=== PATIENT | male | born 1945 | race Caucasian/White ===

== ENCOUNTER 2016-03-24 16:04 | Inpatient (IN) | payer MEDICARE, OTHER ==
[~2016-03-24] VITALS: Ht 177.8 cm; Wt 5.2 kg
[~2016-03-24 16:04] MED LIST: ASPIRIN81 MG PO; BETAPACE 80 MG80 MG PO; COUMADIN5 MG; COUMADIN5 MG PO; COUMADIN7.5 MG PO; DALIRESP500 MCG PO; FLOMAX0.4 MG PO; IPRAT-ALBUT 0.5-3 ML UPD; LEVOTHYROXINE150 MCG PO; LOPRESSOR25 MG PO; MEDROL DOSE PACK4 MG PO; NORMODYNE / TR300 MG PO; NORVASC10 MG PO; PRAVACHOL40 MG PO; PROSCAR5 MG PO; PULMICORT0.5 MG/21 INH; SINGULAIR10 MG PO; ZEGERID 20 MG C1 CAP PO; ZESTRIL20 MG PO; ZYLOPRIM300 MG PO
--- NOTE | 2016-03-24 16:17 | NUR ---
PATIENT TO ROOM FROM ADMISSIONS. PATIENT IS DIRECT ADMIT FROM DR YEE OFFICE. PATIENT IS ALERT AND ORIENTED AT THIS TIME. PATIENT HAS INSIPARTORY WHEEZES NOTED. PATIENT 02 SAT 94% ON ROOM AIR. PATIENT DENIES ANY PAIN AT THIS TIME. WILL CONT TO MADMIT PATIENT AND ONITOR PATIENT. CPOC
[2016-03-24 16:42] VITALS: BP 185/91
[2016-03-24 16:52] VITALS: BP 185/91; BMI 28.7
[2016-03-24 16:58] LABS: BASOPHILS 0.1 % (0.0-2.0); EOSINOPHILS 0 % (0-7); HEMATOCRIT 35.6 % (42.0-54.0); HEMOGLOBIN 12.4 g/dL (13.5-17.5); IMMATURE GRANULOCYTES 2.4 % (0-5); MCH 27.3 pg (26.0-34.0); MCHC 34.8 g/dL (31.0-37.0); MCV 78.2 fL (80.0-100.0); MEAN PLATELET VOLUME 7.9 fL (7.4-10.4); MONOCYTES 7.8 % (2-11); NEUTROPHILS 81.7 % (40-80); PLATELET COUNT 208 10x3/uL (130-400); RBC 4.55 10x6/uL (4.20-6.10); WBC 13.7 10x3/uL (4.8-10.8)
[2016-03-24 17:02] LABS: INR 2.75 (0.85-1.17); PROTIME 29.3 SECONDS (11.6-15.0)
[2016-03-24] MEDS ORDERED: HYDROCHLOROTHIA25 MG PO (17:09)
[2016-03-24 17:26] LABS: CALC OSMOLALITY 241 mosm/kg (275-300); CALCIUM 8.6 mg/dL (8.5-10.1); CARBON DIOXIDE 20.3 mmol/L (21.0-32.0); CKMB 3.1 U/L (0.0-3.6); CREATINE KINASE 85 UL (21-232); CREATININE - SERUM 1.3 mg/dL (0.6-1.3); GLUCOSE 89 mg/dL (74-106); POTASSIUM - SERUM 4.2 mmol/L (3.5-5.1); PRO BNP 1728 pg/mL (0-125); TROPONIN-I 0.034 ng/mL (0.000-0.060); UREA NITROGEN 22 mg/dL (7-18); eGFR NON AFRICAN AMERICAN 58 mL/min (90-120)
[2016-03-24 17:28] LABS: CHLORIDE - SERUM 83 mmol/L (98-107); SODIUM 119 mmol/L (136-145)
--- NOTE | 2016-03-24 17:30 | NUR ---
CRITCAL SODIUM AND CHLORIDE CALLED BACK FROM LAB, DR SANDY NOTIFIED AND HE CONSULTED DR CARREON. CPOC
--- NOTE | 2016-03-24 19:35 | NUR ---
RECEIVED REPORT, 022L, [id number], DENIES ANY NEEDS, CALL LIGHT IN REACH, BED IS LOW, SRX2
[2016-03-24 19:51] VITALS: BP 131/61
[2016-03-25] VITALS: BP 162/89
[2016-03-25 04:00] VITALS: BP 151/75
[2016-03-25 05:17] LABS: BASOPHILS 0.2 % (0.0-2.0); EOSINOPHILS 0.2 % (0-7); HEMATOCRIT 32.3 % (42.0-54.0); HEMOGLOBIN 11.3 g/dL (13.5-17.5); IMMATURE GRANULOCYTES 3.4 % (0-5); LYMPHOCYTES 15.9 % (15-50); MCH 27.4 pg (26.0-34.0); MCV 78.2 fL (80.0-100.0); MEAN PLATELET VOLUME 7.9 fL (7.4-10.4); MONOCYTES 9.1 % (2-11); NEUTROPHILS 71.2 % (40-80); PLATELET COUNT 212 10x3/uL (130-400); RBC 4.13 10x6/uL (4.20-6.10)
[2016-03-25 05:29] LABS: INR 2.61 (0.85-1.17); PROTIME 28.1 SECONDS (11.6-15.0)
--- NOTE | 2016-03-25 05:30 | NUR ---
CALL LIGHT IN REACH. WILL CONTINUE WITH PLAN OF CARE.
[2016-03-25 05:31] LABS: CALCIUM 8.5 mg/dL (8.5-10.1); CARBON DIOXIDE 24.6 mmol/L (21.0-32.0); CREATININE - SERUM 1.1 mg/dL (0.6-1.3); MAGNESIUM - SERUM 1.4 mg/dL (1.8-2.4); PHOSPHOROUS 3.4 mg/dL (2.5-4.9)
[2016-03-25 05:33] LABS: ANION GAP 13.9 mmol/L (8-16); POTASSIUM - SERUM 3.5 mmol/L (3.5-5.1)
[2016-03-25 07:09] VITALS: Ht 177.8 cm; Wt 5.2 kg
--- NOTE | 2016-03-25 07:35 | NUR ---
ASSESSMENT COMPLETED. DENIES ANY NEEDS. IV TO RIGHT FOREARM. O2 AT 2 L/M PER NC. URINE SENT FOR TEST. CALL LIGHT IN REACH WITH SR UP. WILL MONITOR
[2016-03-25 09:01] VITALS: BP 168/80
--- NOTE | 2016-03-25 11:01 | NUR ---
BATH GIVEN AND PATIENT SITTING UP IN CHAIR WHILE LINENS ARE BEING CHANGED. PATIENT STATES BREATHING IS BETTER TODAY.
[2016-03-25 11:17] LABS: POTASSIUM - URINE 38.8 MMOL/L (12.0-62.0)
[2016-03-25 11:33] LABS: APPEARANCE CLEAR (CLEAR); BACTERIA FEW /hpf (NONE SEEN); BILIRUBIN NEGATIVE (NEGATIVE); COLOR DK YELLOW (YELLOW); EPITHELIAL CELLS OCC /hpf (0-5); GLUCOSE NEGATIVE (NEGATIVE); KETONE NEGATIVE (NEGATIVE); LEUKOCYTE ESTERASE TRACE (NEGATIVE); NITRITE NEGATIVE (NEGATIVE); PROTEIN TRACE mg/dL (NEGATIVE); SPECIFIC GRAVITY 1.025 (1.005-1.020); UROBILINOGEN NORMAL (NORMAL)
[2016-03-25 11:34] LABS: HYALINE CAST RARE /lpf (NONE SEEN); MUCUS <1+ /lpf (NONE SEEN); SPERMATOZOA OCC /hpf (NONE SEEN); WHITE CELLS - URINE OCC /hpf (0-5)
--- NOTE | 2016-03-25 12:47 | NUR ---
UP ON SIDE OF BED FOR DIET. NO NEEDS VOICED
[2016-03-25 13:09] VITALS: BP 154/87
--- NOTE | 2016-03-25 16:17 | NUR ---
HOB UP. RESTING QUIETLY. DENIES ANY NEEDS. WILL MONITOR
[2016-03-25 16:43] VITALS: BP 188/104
[2016-03-25 21:00] VITALS: BP 159/86
[2016-03-26 00:42] VITALS: BP 167/92
--- NOTE | 2016-03-26 04:51 | NUR ---
SLEEPING, CALL LIGHT IN REACH, SRX2
--- NOTE | 2016-03-26 04:59 | NUR ---
PT RESTING WITHOUT C/O OR DISTRESS NOTED. CALL LIGHT WITHIN REACH. WILL CONT TO MONITOR.
[2016-03-26 07:17] LABS: IMMUNOGLOBULIN E 14 IU/mL (0-100)
[2016-03-26 07:18] VITALS: BP 179/95
[2016-03-26 07:26] VITALS: BP 179/95
[2016-03-26 07:27] LABS: BASOPHILS 0.3 % (0.0-2.0); EOSINOPHILS 0 % (0-7); HEMATOCRIT 31.4 % (42.0-54.0); HEMOGLOBIN 10.9 g/dL (13.5-17.5); IMMATURE GRANULOCYTES 4.7 % (0-5); LYMPHOCYTES 21.1 % (15-50); MCH 27.3 pg (26.0-34.0); MCHC 34.7 g/dL (31.0-37.0); MCV 78.7 fL (80.0-100.0); MEAN PLATELET VOLUME 7.8 fL (7.4-10.4); MONOCYTES 3.9 % (2-11); PLATELET COUNT 184 10x3/uL (130-400); RBC 3.99 10x6/uL (4.20-6.10); RDW 18.6 % (11.5-14.5)
[2016-03-26 07:33] LABS: WBC 3.6 10x3/uL (4.8-10.8)
[2016-03-26 07:53] LABS: ALBUMIN 2.6 g/dL (3.4-5.0); ALKALINE PHOSPHATASE 52 U/L (46-116); ALT (SGPT) 5 U/L (10-68); BILIRUBIN - TOTAL 0.22 mg/dL (0.2-1.3); CALC OSMOLALITY 257 mosm/kg (275-300); CALCIUM 7.7 mg/dL (8.5-10.1); CARBON DIOXIDE 22.6 mmol/L (21.0-32.0); CHLORIDE - SERUM 94 mmol/L (98-107); CREATININE - SERUM 0.3 mg/dL (0.6-1.3); GLUCOSE 154 mg/dL (74-106); MAGNESIUM - SERUM 1.3 mg/dL (1.8-2.4); PHOSPHOROUS 3.1 mg/dL (2.5-4.9); POTASSIUM - SERUM 3.6 mmol/L (3.5-5.1); PROTEIN - SERUM 5.7 g/dL (6.4-8.2); SODIUM 127 mmol/L (136-145); UREA NITROGEN 12 mg/dL (7-18); eGFR NON AFRICAN AMERICAN > 90 mL/min (90-120)
--- NOTE | 2016-03-26 08:00 | NUR ---
PT SITTING UP IN BED AWAKE AND ALERT NO DISTRESS NOTED VOICES ALL NEEDS TO STAFF. UP AD HUMZA PIV PATENT TO NORMAL SALINE PER ORDER. DOES COMPLAIN OF JITTERING AFTER UPDRAFT TREATMENT PLACED ON TELEMETRY SR NOTED
[2016-03-26 11:30] VITALS: BP 151/77
--- NOTE | 2016-03-26 12:00 | NUR ---
PT WITH NO ACUTE DISTRESS NOTED SIDE RAILS UP X 2 CALL LIGHT IN REACH WILL MONITOR.
[2016-03-26 15:21] VITALS: BP 156/80
--- NOTE | 2016-03-26 16:36 | NUR ---
RESTS IN BED WITHOUT NEEDS VOICED. CALL LIGHT IN REACH. WILL MONITOR.
--- NOTE | 2016-03-26 19:19 | NUR ---
NO DISTRESS NTOED VOICES ALL NEEDS CALL LIGHT INREACH SIDE RAILS UP X2
--- NOTE | 2016-03-26 20:25 | NUR ---
ALERT/AWAKE WATCHING TV. ADMIN SCHED MEDS. REQUESTED ANOTHER SODA. DENIES ANY PAIN OR DISCOMFORT.
[2016-03-26 20:30] VITALS: BP 191/95
[2016-03-27 00:10] VITALS: BP 170/83
--- NOTE | 2016-03-27 02:54 | NUR ---
RESTING QUIETLY WITH EYES CLOSED. RR 20 EVEN U/L. NO S/S OF DISTRESS OR DISCOMFORT. BED IS LOW WITH SR UP X2. CALL LIGHT AND BEDSIDE TABLE WITH PERSONAL ITEMS IN REACH.
[2016-03-27 04:20] VITALS: BP 175/88
--- NOTE | 2016-03-27 06:19 | NUR ---
AWAKE WATCHING TV. REQUESTED CUP OF COFFEE.
[2016-03-27 08:00] VITALS: BP 181/95
[2016-03-27 08:15] LABS: BASOPHILS 0 % (0.0-2.0); EOSINOPHILS 0 % (0-7); HEMATOCRIT 31.1 % (42.0-54.0); HEMOGLOBIN 10.6 g/dL (13.5-17.5); IMMATURE GRANULOCYTES 1.9 % (0-5); LYMPHOCYTES 7.3 % (15-50); MCH 27.2 pg (26.0-34.0); MCHC 34.1 g/dL (31.0-37.0); MCV 79.9 fL (80.0-100.0); MONOCYTES 4.7 % (2-11); NEUTROPHILS 86.1 % (40-80); PLATELET COUNT 202 10x3/uL (130-400); RBC 3.89 10x6/uL (4.20-6.10); RDW 18.8 % (11.5-14.5)
[2016-03-27 08:17] LABS: WBC 8.4 10x3/uL (4.8-10.8)
[2016-03-27 08:22] VITALS: BP 190/80
[2016-03-27 08:25] LABS: INR 1.77 (0.85-1.17); PROTIME 20.6 SECONDS (11.6-15.0)
[2016-03-27 08:32] LABS: ALBUMIN 2.6 g/dL (3.4-5.0); ALKALINE PHOSPHATASE 53 U/L (46-116); BILIRUBIN - TOTAL 0.18 mg/dL (0.2-1.3); CALCIUM 8.1 mg/dL (8.5-10.1); CARBON DIOXIDE 25.7 mmol/L (21.0-32.0); CHLORIDE - SERUM 98 mmol/L (98-107); MAGNESIUM - SERUM 1.2 mg/dL (1.8-2.4); POTASSIUM - SERUM 3.1 mmol/L (3.5-5.1); PROTEIN - SERUM 6.2 g/dL (6.4-8.2); SODIUM 135 mmol/L (136-145); UREA NITROGEN 15 mg/dL (7-18)
[2016-03-27 08:33] LABS: ALT (SGPT) 43 U/L (10-68); CALC OSMOLALITY 276 mosm/kg (275-300); GLUCOSE 207 mg/dL (74-106); PHOSPHOROUS 2.2 mg/dL (2.5-4.9); eGFR NON AFRICAN AMERICAN 78 mL/min (90-120)
[2016-03-27 12:07] VITALS: BP 163/88
[2016-03-27 16:45] VITALS: BP 185/100
--- NOTE | 2016-03-27 18:41 | NUR ---
AMBULATING IN ROLDAN. GAIT STEADY. DENIES SOB OR PAIN. EXPRESSES FEELING CAGED IN. ENCOURAGE ACTIVITY TOLERATED. SINUS RHYTHM 80bpm ON TELEMETRY. CONTINUE PLAN OF CARE AND SAFETY PRECAUTIONS.
--- NOTE | 2016-03-27 20:20 | NUR ---
PT AWAKE, ALERT, ORIENTED, SITTING UP IN BED, HOB 30 DEGREES. PT IS CONCERNED HE HAS NOT BEEN GETTING ALL OF HIS HOME MEDICATIONS SUCH A "PILL FOR HEART RHYTHM". I HAVE REVIEWED WITH PT THE MEDICATIONS HE HAS BEEN RECEIVING WHILE HERE. PT DENIES ANY NEEDS. WILL CONTINUE TO MONITOR CLOSELY. BED LOW, CALL LIGHT IN REACH, SIDE RAILS X 2.
[2016-03-28] VITALS: BP 169/87
--- NOTE | 2016-03-28 01:14 | NUR ---
PT AWAKE, ALERT, ORIENTED, MILD COUGH, REQUESTING PRN COUGH MEDICINE. GAVE PROMETHAZINE WITH CODEINE ORDERED PRN. CONTINUE TO MONITOR CLOSELY.
[2016-03-28 05:00] LABS: BASOPHILS 0.1 % (0.0-2.0); EOSINOPHILS 0 % (0-7); HEMATOCRIT 32.2 % (42.0-54.0); HEMOGLOBIN 10.8 g/dL (13.5-17.5); IMMATURE GRANULOCYTES 2.6 % (0-5); LYMPHOCYTES 9.3 % (15-50); MCH 26.9 pg (26.0-34.0); MCHC 33.5 g/dL (31.0-37.0); MCV 80.1 fL (80.0-100.0); MONOCYTES 7.1 % (2-11); NEUTROPHILS 80.9 % (40-80); PLATELET COUNT 219 10x3/uL (130-400); RBC 4.02 10x6/uL (4.20-6.10); RDW 18.4 % (11.5-14.5); WBC 8.8 10x3/uL (4.8-10.8)
[2016-03-28 05:10] LABS: CALC OSMOLALITY 273 mosm/kg (275-300); CALCIUM 8.1 mg/dL (8.5-10.1); CARBON DIOXIDE 31.6 mmol/L (21.0-32.0); CHLORIDE - SERUM 95 mmol/L (98-107); CREATININE - SERUM 0.9 mg/dL (0.6-1.3); GLUCOSE 183 mg/dL (74-106); MAGNESIUM - SERUM 1.1 mg/dL (1.8-2.4); SODIUM 134 mmol/L (136-145); UREA NITROGEN 14 mg/dL (7-18); eGFR NON AFRICAN AMERICAN 88 mL/min (90-120)
--- NOTE | 2016-03-28 06:18 | NUR ---
PT LYING IN BED, EYES CLOSED, RESPIRATIONS EVEN AND UNLABORED. PT IS EASILY ROUSABLE TO VERBAL STIMULI AND STATES THE PROMETHAZINE WITH CODEINE HELPED HIS COUGH AND ALSO HELPED HIM REST THIS SHIFT. DENIES ANY NEEDS. CONTINUE TO MONITOR CLOSELY.
--- NOTE | 2016-03-28 06:43 | HP ---
PATIENT: TAWANNA FINNEGAN MEDICAL RECORD: [id number] ACCOUNT: [id number] LOCATION:[address] : [birth year] ADMISSION DATE: 03/24/16 HISTORY AND PHYSICAL EXAMINATION DATE OF ADMISSION: 03/24/2016 CHIEF COMPLAINT: Shortness of breath for the past week and unsteadiness and productive cough for 1 week, also change in mental status. HISTORY OF PRESENT ILLNESS: The patient is a 70-year-old gentleman with a longstanding history of having COPD. The patient's had been in the hospital for the past week. Apparently, when she had returned home, she noticed that the patient was stumbling around the house ____, cough and congestion. PAST MEDICAL HISTORY: Significant that he has had severe COPD. He has had history of having transient ischemic attacks in the past. He has also had depression, peripheral vascular disease, rheumatoid arthritis in hands, hypertension, vitamin D deficiency, arthritis of the knees and gastroesophageal reflux. PAST SURGICAL HISTORY: The patient had a heart cath by Dr. Nieves in ____. He has had a carotid endarterectomy in 2008 and carpal tunnel in 2004 bilaterally. He has had back surgery in 1981, lumbar laminectomy. He has had a history of having tuberculosis in the past as well. FAMILY HISTORY: Father had heart disease. Mother had rheumatoid arthritis. Brother of lung cancer. One brother with Parkinson disease. SOCIAL HISTORY: The patient is a 1 pack per day smoker and has been so for most of his adult life. 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 He is currently disabled. He is the father of 1. ALLERGIES: HYTRIN. MEDICATIONS: Allopurinol 300 mg once a day, Breo Ellipta 1 puff day, finasteride 5 mg 1 p.o. daily, hydrochlorothiazide 12.5 mg once a day, levothyroxine 150 mcg once a day, metoprolol tartrate 50 mg once a day, Singulair 10 mg once a day, Prilosec 20 mg twice daily, pravastatin 40 mg 1 p.o. q.h.s., Flomax 0.4 mg p.o. once a day, Coumadin 7.5 mg on Monday and Monday and 5 mg the remaining days. REVIEW OF SYSTEMS: GENERAL: He denies any headaches, seizure, or syncope. Denies any change in visual or auditory acuity. PULMONARY: He does report having cough, congestion with some yellow sputum production. CARDIOVASCULAR: He has had no chest pain, palpitation, PND or orthopnea. GASTROINTESTINAL: No chronic nausea, vomiting, melena or hematochezia. GENITOURINARY: No urgency, frequency, or dysuria. PHYSICAL EXAMINATION: GENERAL: Today, the patient is ill-appearing male whose weight is 186, height is 5 feet 10 inches. VITAL SIGNS: His pulse was 96, his respirations are 28. He was tachypneic. HISTORY AND PHYSICAL [id number] TAWANNA FINNEGAN His O2 sat was 96% on room air. HEENT: Head is normocephalic. No lesions. Ears: TMs clear. Eyes: Pupils equal, round, react to light and his extraocular movements are intact. His nasal cavity, oral cavity and oropharynx are clear. NECK: Supple. There is no adenopathy. HEART: Tachycardic rate of 125. LUNGS: He has end expiratory wheezes. ABDOMEN: Soft, bowel sounds are positive. EXTREMITIES: Lower extremities, he had no edema. LABORATORY DATA: The patient had an EKG showing sinus tachycardia, rate is 125, no ST-T wave changes. The patient's chest x-ray shows flattening of the diaphragm, bilateral increased AP diameter, also old calcified granulomas in both lungs. White count was elevated at 13.7. ASSESSMENT: Chronic obstructive pulmonary disease exacerbation, possible early pneumonia, tachycardia, history of arteriosclerotic heart disease, peripheral vascular disease, hypertension, rheumatoid arthritis, gastroesophageal reflux and hypothyroidism. PLAN: The patient will be admitted. A cardiology as well as pulmonology consultation will be obtained. He will be placed on Solu-Medrol 1 mg/kg q.8 hours IV, Rocephin 1 g IV q.24 hours, Zithromax 500 mg IV q.24 hours and DuoNeb updrafts q.4 hours. Maintain his O2 sat above 92%. We will obtain sputum cultures as well and Gram stain. TRANSINT:[id number] Voice Confirmation ID: [id number] DOCUMENT ID: [id number] MARY YEE MD at 0643 CC: [id number] DICTATION DATE: 01/05/17 1752 SAMPLE WRAPPER: 03/24/162029 ADM IN [facility] [address] [facility], [facility]
[2016-03-28 08:45] VITALS: BP 194/101
--- NOTE | 2016-03-28 12:04 | NUR ---
Patient Name: TAWANNA FINNEGAN Admission Status: Urgent Accout number: [id number] Admission Date: 03-24-2016 : 1945 Admission Diagnosis: COPD Attending: PAWAN Current LOS: 4 Anticipated DC Date: 03-29-2016 Planned Disposition: Home with Primary Insurance: MEDICARE A & B Discharge Planning Comments: CM met with patient to discuss dc plan/needs. Consent given to discuss dc plans. Patient reports living at home with his . He reports he is independent in his care at home. He wears O2 at hs every night. He also has a nebulizer. He is not able to remember at this time who his O2 provider is. He denied use of assisted devices for ambulation. Patient denied dc needs at this time. He stated returning home at discharge with his is a safe discharge. Patient reports his spouse will transport him home at discharge. CM will continue to follow and assist as needed with dc plans/needs. Encouraged patient to contact cm if needs arise. Geophysical Computer: Tatiana Cervantes RN, [facility] Is the patient Alert and Oriented? Yes * How many steps to enter\exit or inside your home? 3 * PCP Dr. Fulton * Pharmacy [facility] or [facility] [address] * Preadmission Environment Home with Family * ADLs Independent * Equipment Nebulizer Oxygen * Other Equipment Cant remember O2 provider * List name and contact numbers for known caregivers / representatives who currently or will assist patient after discharge: Colleen Finnegan - spouse - [phone] * Community resources currently utilized None * Please name any agencies selected above. none * Additional services required to return to the preadmission environment? No * Can the patient safely return to the preadmission environment? Yes * Has this patient been hospitalized within the prior 30 days at any hospital? No
--- NOTE | 2016-03-28 12:56 | NUR ---
Important Medicare Message provided, explained, and signed by honey. Copy given to patient and signed message placed on patient's chart.
[2016-03-28 13:14] VITALS: BP 170/98
--- NOTE | 2016-03-28 14:09 | CN ---
PATIENT NAME:TAWANNA FINNEGAN MEDICAL RECORD: [id number] : [birth year] LOCATION:[facility] D.2113 ADMIT DATE: 03/24/16 ACCOUNT: [id number] CONSULTING PHYSICIAN: JOSE LYN MD REFERRING PHYSICIAN: MARY YEE MD DATE OF CONSULTATION: 03/25/2016 Cardiology Consultation HISTORY OF PRESENT ILLNESS: A 70-year-old gentleman with a history of obstructive pulmonary disease as well as paroxysmal atrial fibrillation. Intermittently, is on warfarin for cerebrovascular accident prophylaxis, admitted with progressive dyspnea on exertion, ____ tachycardic, has a history of dyslipidemia, has baseline dyspnea; however, has been more acute over the last ____ cardiac sinus mechanism currently. Rates have decreased well. We are asked to see him concerning his cardiovascular status. PAST MEDICAL HISTORY: Includes: 1. History of obstructive pulmonary disease. 2. Hypothyroidism. 3. Obstructive pulmonary disease described above. 4. He has a history of TB osteomyelitis. 5. Atrial fibrillation, dyslipidemia and hypertension. MEDICATIONS: Typically include HCTZ 25 mg p.o. every day, warfarin per scale, montelukast 10 mg at bedtime, Pravachol 40 every day, omeprazole 20 every day, and Proscar ____ every day. SOCIAL HISTORY: He is a previous smoker, quit in August 2015. He drinks about 12-pack of beer a day. He does have baseline shortness of breath. REVIEW OF SYSTEMS: The patient reports easy bruising but reports no swollen glands. The patient reports no fever, no night sweats, no significant weight gain, no significant weight loss. No significant exercise tolerance. The patient reports no dry eyes, no irritation, no vision change. Patient reports no difficulty hearing and no ear pain. Patient reports no frequent nose bleeds or nose and sinus problems. Patient reports on arm pain on exertion. No shortness of breath while lying down. No history of heart murmur. Patient reports no cough, no wheezing or coughing up blood. Patient reports no abdominal pain, no vomiting. Normal appetite. No diarrhea and not vomiting blood. No nausea and no constipation. Patient reports no incontinence. No difficulty urinating. No hematuria. No increased frequency. Patient reports no muscle aches. No weakness, no arthralgias, no back pain. No swelling of the extremities. Patient reports no abnormal mole, no jaundice, no rashes. Reports no loss of consciousness. No weakness and no numbness. No seizures, dizziness, or headaches. The patient reports no depression, no sleep disturbance, feeling safe in a relationship and no alcohol abuse. Patient reports on fatigue. Reports no runny nose or sinus pressure. No itching, no hives, and no frequent sneezing. PHYSICAL EXAMINATION: GENERAL: Pleasant gentleman in no acute distress. VITAL SIGNS: Pulse currently 90 and regular, blood pressure 160/80. HEENT: Normocephalic and atraumatic. NECK: No JVD or bruit. CONSULT REPORT [id number] TAWANNA FINNEGAN HEART: Regular, slightly tachycardic. No extrasystoles. LUNGS: Prolonged expiratory phase with a few wheezes. ABDOMEN: Soft and nontender. EXTREMITIES: Pulse 2+. There is no edema. NEUROLOGIC: Grossly intact. DIAGNOSTIC DATA: ECG shows right bundle left axis pressure. IMPRESSION: Sinus tachycardia. Currently, given cerebrovascular accident prophylaxis. Would not place ____ at this point. Thank you for this consultation. TRANSINT:[id number] Voice Confirmation ID: [id number] DOCUMENT ID: [id number] JOSE LYN MD at 1409 CC: [id number] DICTATION DATE: 03/25/16922 LEGEND MAKER: 03/25/16 1103 ADM IN [place] [id number]
[2016-03-28 17:04] VITALS: BP 157/96
--- NOTE | 2016-03-28 18:39 | NUR ---
ALERT AND ORIENTED X4. NO CHANGE. SITTING UP IN CHAIR. DENIES PAIN OR SOB. READY TO GO HOME. POSSIBLE DC IN A.M. PREPARE SHIFT CHANGE REPORT. CONTINUE PLAN OF CARE AND SAFETY PRECAUTIONS.
--- NOTE | 2016-03-28 21:23 | NUR ---
PT AWAKE, ALERT, ORIENTED, DENIES ANY NEEDS OTHER THAN BEING UNABLE TO SLEEP. CONTINUE TO MONITOR CLOSELY. BED LOW, CALL LIGHT IN REACH, SIDE RAILS X 2, PT UP AD HUMZA AT THIS TIME.
[2016-03-28 21:47] VITALS: BP 131/84
[2016-03-29 02:11] VITALS: BP 162/92
--- NOTE | 2016-03-29 03:53 | NUR ---
PT LYING IN BED, EYES CLOSED, RESPIRATIONS EVEN AND UNLABORED. CONTINUE TO MONITOR CLOSELY.
[2016-03-29 05:29] VITALS: BP 114/58
[2016-03-29 05:48] LABS: BASOPHILS 0.1 % (0.0-2.0); EOSINOPHILS 0 % (0-7); HEMATOCRIT 35.7 % (42.0-54.0); HEMOGLOBIN 12.1 g/dL (13.5-17.5); IMMATURE GRANULOCYTES 6.6 % (0-5); LYMPHOCYTES 23.5 % (15-50); MCH 26.9 pg (26.0-34.0); MCHC 33.9 g/dL (31.0-37.0); MCV 79.5 fL (80.0-100.0); MEAN PLATELET VOLUME 8.1 fL (7.4-10.4); MONOCYTES 7.8 % (2-11); PLATELET COUNT 199 10x3/uL (130-400); RBC 4.49 10x6/uL (4.20-6.10); RDW 18.6 % (11.5-14.5); WBC 8.9 10x3/uL (4.8-10.8)
[2016-03-29 06:01] LABS: CALCIUM 8.3 mg/dL (8.5-10.1); CHLORIDE - SERUM 95 mmol/L (98-107); MAGNESIUM - SERUM 1.3 mg/dL (1.8-2.4); PHOSPHOROUS 1.7 mg/dL (2.5-4.9); SODIUM 132 mmol/L (136-145); UREA NITROGEN 14 mg/dL (7-18); eGFR NON AFRICAN AMERICAN 78 mL/min (90-120)
[2016-03-29 06:06] LABS: CALC OSMOLALITY 265 mosm/kg (275-300); GLUCOSE 96 mg/dL (74-106); POTASSIUM - SERUM 3.7 mmol/L (3.5-5.1)
[2016-03-29 06:09] LABS: INR 2.05 (0.85-1.17); PROTIME 23.1 SECONDS (11.6-15.0)
[2016-03-29] MEDS ORDERED: LEVAQUIN750 MG PO (06:55)
[2016-03-29] MEDS ORDERED: SYNTHROID150 MCG PO (06:57)
[2016-03-29] MEDS ORDERED: LISINOPRIL10 MG PO (06:58)
[2016-03-29] MEDS ORDERED: BROVANA15 MCG/2 M INH (06:59)
[2016-03-29] MEDS ORDERED: METOPROLOL TART50 MG PO (06:59)
[2016-03-29] MEDS ORDERED: XOPENEX 0.0.63 MG/3 UPD (07:00)
[2016-03-29] MEDS ORDERED: ATROVENT 0.02%2.5 ML UPD (07:00)
[2016-03-29 07:27] VITALS: BP 175/107
--- NOTE | 2016-03-29 10:42 | NUR ---
RESTING ROOM AIR SPO2: 95% WALKING/EXERCISE ROOM AIR SPO2: 85% WALKING/EXERCISE SPO2 ON 2L NC: 97%
--- NOTE | 2016-03-29 11:02 | NUR ---
Patient Name: TAWANNA FINNEGAN Encounter No: [id number] : 1945 Primary Insurance: MEDICARE A & B Anticipated DC Date: 03-29-2016 Planned Disposition: Home DCP follow-up note: CM RECEIVED OXGYEN TESTING, PT QUALIFIES FOR PORTABLE OXYGEN. CM REVIEWED CHART, LOCATED PT'S HOME OXYGEN PROVIDER, EBNOI. CM CALLED RAY AT [facility], , NOTIFIED OF PT'S NEED FOR PORTABLE FOR DISCHARGE HOME. CM FAXED REFERRAL INFORMATION TO [facility] AT [phone]. CM SPOKE TO PT, INFORMED OF ABOVE, PT DENIES FURHTER DISCHARGE NEEDS. [facility] TO DELIVER PORTABLE OXYGEN TO HOSPITAL ROOM FOR DISCHARGE HOME TODAY. Vitor Garcia, CASE MANAGEMENT
[2016-03-29 11:36] VITALS: BP 135/76
--- NOTE | 2016-03-29 13:02 | NUR ---
ALERT AND ORIENTED X4. ANXIOUSLY WAITING TO GO HOME. DURING DISCHARGE INSTRUCTIONS, PORTABLE OXYGEN DELIVERED. DISCHARGE PAPERS SIGNED ON CHART. REMAINS FREE FROM INJURY. NO IV. ESCORT TO RIDE VIA WHEELCHAIR.
[2016-04-05 17:10] LABS: AEROBE ID Final report (())
--- NOTE | 2016-05-09 07:19 | DS ---
PATIENT:TAWANNA FINNEGAN :[birth year] MEDICAL RECORD: [id number] DISCHARGE SUMMARY ADMISSION DATE: 03/24/16 DISCHARGE DATE: 03/29/16 DATE OF ADMISSION: 03/24/2016 DATE OF DISCHARGE: 03/29/2016 CONDITION ON DISCHARGE: Improved. ADMITTING DIAGNOSES: Chronic obstructive pulmonary disease exacerbation, early pneumonia, tachycardia, history of arteriosclerotic heart disease, peripheral vascular disease, hypertension and rheumatoid arthritis. DISCHARGE DIAGNOSES: Chronic obstructive pulmonary disease exacerbation, pneumonia, diastolic dysfunction, hyponatremia, hypertension, gastroesophageal reflux, tachycardia and hypokalemia. HOSPITAL COURSE: The patient is a 70-year-old gentleman, who for the past couple of days, had had increasing shortness of breath. He had cough. He had congestion. He had also developed some confusion. PHYSICAL EXAMINATION: GENERAL: The patient was ill-appearing male. VITAL SIGNS: His weight was 186. His height 5 feet 10 inches. His pulse 96 and respirations 28. He was tachypneic. His O2 sat was 96% on room air. HEENT: Normal. NECK: Supple. There is no adenopathy. HEART: Tachycardic. LUNGS: He had decreased breath sounds in all taylor, expiratory wheezes. DIAGNOSTIC DATA: The patient had a chest x-ray showing flattening of the diaphragm, increased AP diameter, old calcified granulomas are stable. LABORATORY DATA: White count was elevated at 13,000. The patient was admitted, cardiology as well as pulmonology consultation was obtain. He was on Solu-Medrol 1 mg/kg q.8 hours, Rocephin as well as Zithromax, DuoNeb inhaler, O2 supplementation. He was seen in consultation by Dr. Alcantara, mogul operator as well as Dr. Murrell, bindery machine setter, Dr. Rodriguez, white spooler. The patient's condition slowly began to improve. Over the coming days, his white count decreased. His sodium was 119. His free water was restricted. The patient's sodium slowly began to return to normal. Pneumonia had improved. The patient was ambulating. On , the patient's condition had improved. On the , his discharge white count was 8.9, his hemoglobin was 12.1, hematocrit is 35.7 and his platelets were 199. His sodium was elevated up to 132, his potassium is 3.7, chloride of 95, CO2 is 30, BUN 14 and creatinine 1. The patient was therefore discharged. DISCHARGE MEDICATIONS: Included metoprolol 50 mg 1 p.o. b.i.d., KCl 20 mEq 1 p.o. q. day, Coumadin 5 mg 1 p.o. q. day, lisinopril 20 mg once a day, Flomax 0.4 mg once a day, prednisone on a tapering dose 40 mg for 3 days, 30 for 3 days, 20 for 3 days, and 10 for 3 days, Levaquin 750 mg 1 p.o. q. day for 7 days, Protonix 40 mg 1 p.o. q. day, Proscar 5 mg 1 p.o. q day, allopurinol 100 mg 1 p.o. q. day, pravastatin 40 mg 1 p.o. q. day, Brovana 15 mcg b.i.d., Tessalon Perles 1-2 every 8 hours p.r.n. cough, Pulmicort 0.5 b.i.d., DISCHARGE SUMMARY REPORT [id number] TAWANNA FINNEGAN guaifenesin 1000 mg p.o. b.i.d., Norvasc 10 mg 1 p.o. q. day and clonidine 0.1 mg p.o. p.r.n. for systolic pressure greater than 160. FOLLOWUP: The patient will follow up with me in approximately 1 week. ACTIVITIES: Ad rikki. TRANSINT:[id number] Voice Confirmation ID: [id number] DOCUMENT ID: [id number] MARY YEE MD at 0719 CC: [id number] DICTATION DATE: 05/08/16 1146 BORE MINER OPERATOR: 05/08/16 2256 DIS IN 03/29/16 [place] [id number]
== END 2016-03-29 14:06 | disposition home or self-care (01) | DRG 190 ==
LOC: D.M2 16:04
PROVIDERS: Family Medicine; Internal Medicine; Internal Medicine Pulmonary Disease; ADMIT Family Medicine
DX: J44.1 Chronic obstructive pulmonary disease with (acute) exacerbation (principal); J18.9 Pneumonia, unspecified organism; I50.30 Unspecified diastolic (congestive) heart failure; E87.1 Hypo-osmolality and hyponatremia; I10 Essential (primary) hypertension; K21.9 Gastro-esophageal reflux disease without esophagitis; I70.208 Unspecified atherosclerosis of native arteries of extremities, other extremity; R00.0 Tachycardia, unspecified; E87.6 Hypokalemia

== ENCOUNTER → 2016-05-30 12:38 | Outpatient (CLI) | payer MEDICARE, OTHER ==
[2016-03-25 07:09] VITALS: BMI 28.6
[~2016-05-30 12:38] MED LIST changes: +ATROVENT 0.02%2.5 ML UPD; +BAYER CHEWABLE81 MG PO; +BREO ELLIPTA 21 EACH INH; +BROVANA15 MCG/2 M INH; +CARDURA2 MG PO; +FLUTICASONE PRO16 GM NASAL; +HYDROCHLOROTHIA25 MG PO; +LEVAQUIN750 MG PO; +LISINOPRIL-HCTZ1 T13 PO; +LISINOPRIL10 MG PO; +METOPROLOL TART50 MG PO; +MUCINEX600 MG PO; +ORAPRED ODT10 MG/TAB PO; +PREDNISONE10 MG PO; +PROAIR HFA8.5 GM INH; +PROBIOTIC1 EAC1 PO; +PULMICORT0.25 MG/1 INH; +SYNTHROID150 MCG PO; +XOPENEX 0.0.63 MG/3 UPD
== END | disposition home or self-care (01) ==
LOC: D.US 12:38
DX: I65.23 Occlusion and stenosis of bilateral carotid arteries (principal)

== ENCOUNTER 2016-06-30 13:55 | Inpatient (IN) | payer MEDICARE, OTHER ==
[~2016-06-30] VITALS: Ht 177.8 cm; Wt 88.6 kg
[~2016-06-30 13:55] MED LIST changes: -BAYER CHEWABLE81 MG PO; -BREO ELLIPTA 21 EACH INH; -CARDURA2 MG PO; -FLUTICASONE PRO16 GM NASAL; -LISINOPRIL-HCTZ1 T13 PO; -MUCINEX600 MG PO; -ORAPRED ODT10 MG/TAB PO; -PREDNISONE10 MG PO; -PROAIR HFA8.5 GM INH; -PROBIOTIC1 EAC1 PO; -PULMICORT0.25 MG/1 INH
[2016-06-30 15:47] LABS: BASOPHILS 0.1 % (0.0-2.0); EOSINOPHILS 0.1 % (0-7); HEMATOCRIT 35.3 % (42.0-54.0); HEMOGLOBIN 12.1 g/dL (13.5-17.5); IMMATURE GRANULOCYTES 0.7 % (0-5); LYMPHOCYTES 7.3 % (15-50); MCH 30.9 pg (26.0-34.0); MCHC 34.3 g/dL (31.0-37.0); MCV 90.3 fL (80.0-100.0); MEAN PLATELET VOLUME 8.7 fL (7.4-10.4); MONOCYTES 7.3 % (2-11); NEUTROPHILS 84.5 % (40-80); PLATELET COUNT 255 10x3/uL (130-400); RBC 3.91 10x6/uL (4.20-6.10); RDW 13.5 % (11.5-14.5)
[2016-06-30 15:55] LABS: INR 2.44 (0.85-1.17); PROTIME 26.6 SECONDS (11.6-15.0)
[2016-06-30 16:00] LABS: ALBUMIN 3.4 g/dL (3.4-5.0); ALKALINE PHOSPHATASE 51 U/L (46-116); ALT (SGPT) 17 U/L (10-68); BILIRUBIN - TOTAL 0.55 mg/dL (0.2-1.3); CALC OSMOLALITY 267 mosm/kg (275-300); CALCIUM 8.6 mg/dL (8.5-10.1); CARBON DIOXIDE 29.1 mmol/L (21.0-32.0); CHLORIDE - SERUM 94 mmol/L (98-107); GLUCOSE 91 mg/dL (74-106); POTASSIUM - SERUM 4.1 mmol/L (3.5-5.1); PROTEIN - SERUM 6.3 g/dL (6.4-8.2); SODIUM 132 mmol/L (136-145); UREA NITROGEN 20 mg/dL (7-18); eGFR NON AFRICAN AMERICAN 78 mL/min (90-120)
[2016-06-30 16:12] LABS: PRO BNP 523 pg/mL (0-125)
[2016-06-30 16:16] LABS: TROPONIN-I < 0.017 ng/mL (0.000-0.060)
--- NOTE | 2016-06-30 19:43 | NUR ---
RECEIVED FROM ER, IV-R.HAND, PT IS ALERT & ORITENTATED, IS AT BEDSIDE, CALL LIGHT IN REACH, WILL CONTINUE TO MONITOR
[2016-06-30] MEDS ORDERED: BAYER CHEWABLE81 MG PO (19:52)
[2016-06-30] MEDS ORDERED: MUCINEX600 MG PO (19:53)
[2016-06-30] MEDS ORDERED: CARDURA2 MG PO (19:53)
[2016-06-30] MEDS ORDERED: COUMADIN5 MG PO (19:54)
[2016-06-30] MEDS ORDERED: PULMICORT0.25 MG/1 INH (19:57)
[2016-06-30 20:00] VITALS: BP 184/93
[2016-06-30 21:23] VITALS: BP 175/103; Ht 177.8 cm; Wt 88.6 kg
[2016-07-01] VITALS: BP 151/75
--- NOTE | 2016-07-01 04:16 | NUR ---
SYSTEM DEVELOPMENT MANAGER AT BEDSIDE TO OBTAIN VITALS, CALL LIGHT IN REACH. WILL CONTINUE WITH PLAN OF CARE.
[2016-07-01 04:43] LABS: BASOPHILS 0.1 % (0.0-2.0); EOSINOPHILS 0 % (0-7); HEMATOCRIT 34.5 % (42.0-54.0); HEMOGLOBIN 11.7 g/dL (13.5-17.5); LYMPHOCYTES 10.3 % (15-50); MCH 30.4 pg (26.0-34.0); MCHC 33.9 g/dL (31.0-37.0); MCV 89.6 fL (80.0-100.0); MEAN PLATELET VOLUME 8.7 fL (7.4-10.4); MONOCYTES 5.1 % (2-11); NEUTROPHILS 82.5 % (40-80); PLATELET COUNT 259 10x3/uL (130-400); RBC 3.85 10x6/uL (4.20-6.10); RDW 13.3 % (11.5-14.5)
[2016-07-01 04:46] LABS: WBC 12.2 10x3/uL (4.8-10.8)
--- NOTE | 2016-07-01 05:02 | NUR ---
PT UP IN ROLDAN WALKING TO GET COFFEE,
[2016-07-01 05:24] LABS: ALBUMIN 3.2 g/dL (3.4-5.0); ALKALINE PHOSPHATASE 48 U/L (46-116); ALT (SGPT) 16 U/L (10-68); BILIRUBIN - TOTAL 0.37 mg/dL (0.2-1.3); CALC OSMOLALITY 260 mosm/kg (275-300); CALCIUM 8.4 mg/dL (8.5-10.1); CARBON DIOXIDE 31.4 mmol/L (21.0-32.0); CHLORIDE - SERUM 91 mmol/L (98-107); CREATININE - SERUM 0.9 mg/dL (0.6-1.3); GLUCOSE 92 mg/dL (74-106); POTASSIUM - SERUM 3.7 mmol/L (3.5-5.1); PROTEIN - SERUM 6.4 g/dL (6.4-8.2); SODIUM 129 mmol/L (136-145); UREA NITROGEN 19 mg/dL (7-18); eGFR NON AFRICAN AMERICAN 88 mL/min (90-120)
--- NOTE | 2016-07-01 07:19 | NUR ---
AM ROUNDS - PT WAS WALKING THE FLOOR AND RETURNED TO HIS ROOM I WAS WALKING OUT. RIGHT HAND IV THAT IS SL. PT HAD NO NEEDS AT THIS TIME. WILL CONTINUE TO MONITOR.
[2016-07-01 08:19] VITALS: BP 171/81
[2016-07-01 12:44] VITALS: BP 134/66
--- NOTE | 2016-07-01 14:39 | NUR ---
PAGE INTO DR SANDY TO SEE IF PATIENT CAN BE DISCHARGED PER DR BOCANEGRA. AWAITING CALL BACK. [id number] SANDY TO CALL BACK AND STATES THAT HE WILL BE BY LATER. THIS IS RELAYED TO THE PATIENT.
[2016-07-01 16:00] VITALS: BP 137/68
--- NOTE | 2016-07-01 16:22 | NUR ---
DR SANDY TO SEE PATIENT.
[2016-07-01 19:00] VITALS: BP 129/60
--- NOTE | 2016-07-01 19:40 | NUR ---
SITTING ON SIDE OF BED REC UPDRAFT TX. DENIES PAIN OR ANY NEEDS. FLUSHED R HAND IV AND SL. ORIENTED TO CALL LIGHT FOR ANY NEEDS.
[2016-07-02] VITALS: BP 151/80
--- NOTE | 2016-07-02 01:15 | NUR ---
AWAKE WATCHING TV. ADMIN SCHED MED/IV. DENIES ANY NEEDS.
[2016-07-02 04:00] VITALS: BP 161/80
[2016-07-02 04:47] LABS: BASOPHILS 0.1 % (0.0-2.0); EOSINOPHILS 0 % (0-7); HEMATOCRIT 36.5 % (42.0-54.0); HEMOGLOBIN 12.4 g/dL (13.5-17.5); IMMATURE GRANULOCYTES 1.9 % (0-5); LYMPHOCYTES 4.4 % (15-50); MCH 30.2 pg (26.0-34.0); MCV 88.8 fL (80.0-100.0); MEAN PLATELET VOLUME 8.4 fL (7.4-10.4); MONOCYTES 2.7 % (2-11); NEUTROPHILS 90.9 % (40-80); PLATELET COUNT 250 10x3/uL (130-400); RBC 4.11 10x6/uL (4.20-6.10); RDW 13.3 % (11.5-14.5); WBC 12.6 10x3/uL (4.8-10.8)
[2016-07-02 05:07] LABS: ALBUMIN 3.4 g/dL (3.4-5.0); ANION GAP 12.3 mmol/L (8-16); BILIRUBIN - TOTAL 0.44 mg/dL (0.2-1.3); CALCIUM 8.5 mg/dL (8.5-10.1); CARBON DIOXIDE 28.5 mmol/L (21.0-32.0); CREATININE - SERUM 1.1 mg/dL (0.6-1.3); POTASSIUM - SERUM 3.8 mmol/L (3.5-5.1); PROTEIN - SERUM 6.6 g/dL (6.4-8.2)
--- NOTE | 2016-07-02 07:00 | NUR ---
RECEIVED REPORT. ASSUMED CARE OF PATIENT. PATIENT UP AMBULATING IN HALLWAY AND AROUND ROOM. DENIES NEEDS. STATES HE SHOULD GO HOME TODAY. NO DISTRESS.
[2016-07-02 08:12] VITALS: BP 154/83
--- NOTE | 2016-07-02 11:00 | NUR ---
AMBULATING THROUGHOUT UNIT. DENIES NEEDS. WANTING TO GO HOME. NO DISTRESS.
[2016-07-02 11:49] VITALS: BP 172/86
[2016-07-02 15:51] VITALS: BP 157/74
--- NOTE | 2016-07-02 16:03 | NUR ---
20 GAUGE IV REMOVED FROM RIGHT HAND. NO BLEEDING FROM SITE. CATHETER TIP INTACT. 2X2 GAUZE APPLIED AND SECURED WITH TAPE. PATIENT IS BEING DISCHARGED TO HOME. TOLERATED IV CATHETER REMOVAL WELL. NO DISTRESS.
[2016-07-02] MEDS ORDERED: IPRAT-ALBUT 0.5-3 ML UPD (16:59)
[2016-07-02] MEDS ORDERED: BREO ELLIPTA 21 EACH INH (17:01)
[2016-07-02] MEDS ORDERED: PROAIR HFA8.5 GM INH (17:03)
[2016-07-02] MEDS ORDERED: DALIRESP500 MCG PO (17:03)
[2016-07-02] MEDS ORDERED: FLUTICASONE PRO16 GM NASAL (17:04)
[2016-07-02] MEDS ORDERED: ORAPRED ODT10 MG/TAB PO (17:06)
[2016-07-02] MEDS ORDERED: PREDNISONE10 MG PO (17:09)
[2016-07-02] MEDS ORDERED: PROBIOTIC1 EAC1 PO (17:10)
[2016-07-02] MEDS ORDERED: LEVAQUIN750 MG PO (17:11)
[2016-07-02] MEDS ORDERED: FLOMAX0.4 MG PO (17:12)
[2016-07-02] MEDS ORDERED: METOPROLOL TART50 MG PO (17:13)
[2016-07-02] MEDS ORDERED: LISINOPRIL-HCTZ1 T13 PO (17:13)
--- NOTE | 2016-07-02 18:00 | NUR ---
DISCHARGE INSTRUCTIONS PROVIDED TO PATIENT AT THIS TIME. VERBALIZED UNDERSTANDING OF ALL INSTRUCTIONS PROVIDED.
--- NOTE | 2016-07-02 18:03 | NUR ---
Rx's FOR LEVAQUIN AND PREDNISONE TAPER CALLED TO [facility].
--- NOTE | 2016-07-02 18:16 | NUR ---
PATIENT LEFT UNIT VIA WHEELCHAIR WITH ALL PERSONAL BELONGINGS. DISCHARGED TO HOME. PATIENT IN NO DISTRESS UPON LEAVING UNIT.
--- NOTE | 2016-07-03 11:20 | DS ---
PATIENT:TAWANNA FINNEGAN :43 MEDICAL RECORD: [id number] DISCHARGE SUMMARY ADMISSION DATE: 06/30/16 DISCHARGE DATE: 07/02/16 DATE OF ADMISSION: 06/30/2016 DATE OF DISCHARGE: 07/02/2016 ADMISSION DIAGNOSIS: Chronic obstructive pulmonary disease with acute exacerbation. DISCHARGE DIAGNOSIS: Chronic obstructive pulmonary disease with acute exacerbation. CONSULTS: Dr. Josh Murrell, pulmonology. HOSPITAL COURSE: The patient had an uneventful hospital course, was admitted through the ER with progressive shortness of breath, inhalers, nebulizers continued, IV Solu-Medrol started. Chest x-rays, no significant change. No infiltrates. The patient is feeling better, anxious to go home, has been cleared for discharge by pulmonology, Dr. Murrell. Discharge meds arranged per Dr. Murrell. Will follow up with Dr. Fulton, his primary within the next 10 days. Follow up with Dr. Murrell as scheduled. Agree with assessments by consulting physicians. The patient is discharged to home in significantly improved condition. PHYSICAL EXAMINATION: VITAL SIGNS ON DISCHARGE: Temperature 97.5, heart rate 89, respirations 18, blood pressure 154/83, O2 sats 95%, alert, oriented. HEART: Regular rate and rhythm. LUNGS: Clear. ABDOMEN: Soft, nontender. EXTREMITIES: Present times 4, no edema. NEUROLOGIC: Intact. Follow up as above. TRANSINT:[id number] Voice Confirmation ID: [id number] DOCUMENT ID: [id number] TAWANNA HOLLIDAY DO at 1120 CC: [id number] DICTATION DATE: 07/02/16 1554 CAPITAL CAMPAIGN FUNDRAISER: 07/02/162010 DIS IN 07/02/16 [facility] [address] [place] [address]
== END 2016-07-02 18:18 | disposition home or self-care (01) | DRG 192 ==
LOC: D.ER 13:55 → D.M2 18:01
PROVIDERS: Emergency Medicine; ADMIT Family Medicine
DX: J44.1 Chronic obstructive pulmonary disease with (acute) exacerbation (principal); I48.91 Unspecified atrial fibrillation; R91.1 Solitary pulmonary nodule; I10 Essential (primary) hypertension; E03.9 Hypothyroidism, unspecified; K21.9 Gastro-esophageal reflux disease without esophagitis; N40.0 Benign prostatic hyperplasia without lower urinary tract symptoms; J32.9 Chronic sinusitis, unspecified; G47.34 Idiopathic sleep related nonobstructive alveolar hypoventilation; E78.5 Hyperlipidemia, unspecified; Z87.01 Personal history of pneumonia (recurrent); Z86.73 Personal history of transient ischemic attack (TIA), and cerebral infarction without residual deficits; Z87.891 Personal history of nicotine dependence

== ENCOUNTER → 2016-08-29 13:35 | Outpatient (CLI) | payer MEDICARE, OTHER ==
[2016-06-30 21:23] VITALS: BMI 27.9
[~2016-08-29 13:35] MED LIST changes: +BAYER CHEWABLE81 MG PO; +BREO ELLIPTA 21 EACH INH; +CARDURA2 MG PO; +FLUTICASONE PRO16 GM NASAL; +LISINOPRIL-HCTZ1 T13 PO; +MUCINEX600 MG PO; +ORAPRED ODT10 MG/TAB PO; +PREDNISONE10 MG PO; +PROAIR HFA8.5 GM INH; +PROBIOTIC1 EAC1 PO; +PULMICORT0.25 MG/1 INH
== END | disposition home or self-care (01) ==
LOC: D.RT 07-25 09:00 → D.RAD 07-25 10:00 → D.RT 13:35
DX: J44.9 Chronic obstructive pulmonary disease, unspecified (principal)

== ENCOUNTER → 2016-10-11 13:31 | Outpatient (CLI) | payer MEDICARE, OTHER ==
[2016-06-30 21:23] VITALS: BMI 27.9
== END | disposition home or self-care (01) ==
LOC: D.CT 13:31
DX: R10.9 Unspecified abdominal pain (principal)

== ENCOUNTER → 2016-10-26 08:26 | Outpatient (CLI) | payer MEDICARE, OTHER ==
[2016-06-30 21:23] VITALS: BMI 27.9
== END | disposition home or self-care (01) ==
LOC: D.CT 08:26
DX: R10.9 Unspecified abdominal pain (principal)

== ENCOUNTER 2016-11-09 10:59 | Outpatient (CLI) | payer MEDICARE, OTHER ==
[~2016-11-09] VITALS: Ht 177.8 cm; Wt 90.9 kg
--- NOTE | ~2016-11-09 | HEMODYNAMI ---
PATIENT:TAWANNA FINNEGAN MEDICAL RECORD: [id number] : 43 LOCATION:D.CAT ADMISSION DATE: 11/09/16 Generatedon:11/09/201615:17 Patient name: TAWANNA FINNEGAN Patient #: [id number] SSN: : 1945 Date of study: 11/09/2016 Page: Of Hemodynamic Procedure Report Patient Data Patient Demographics Procedure consent was obtained First Name: TAWANNA Gender: Male Last Name: SIVAN : 1945 [facility] Initial: E Age: 71 year(s) Patient #: [id number] Race: Additional ID: [id number] Contact details Address: [address] [place] [address] [place] State: [place] City: [facility] Zip code: [address] Past Medical History Allergies Allergen Reaction Date Comments Reported Other allergy 12/03/2015 terazosin Admission Admission Data Admission Date: 11/09/2016 Admission Time: 10:59 Height (in.): 60 BSA: 1.92 (m2) Height (cm.): 152.4 BMI: 41.6 (kg/m2) Weight (lbs.): 213 Weight (kg.): 96.62 Procedure Procedure Types Cath Procedure Diagnostic Procedure [facility] w/Coronaries Miscellaneous Procedures Moderate Sedation up to 15 minutes Procedure Description Procedure Date Procedure Date: 11/09/2016 Procedure Start Time: 14:54 Procedure End Time: 15:14 Procedure Staff Name Function Frank Rodriguez MD Performing Physician Ruth Antunez RT Scrub Sony Garibay RN Nurse Bertha Sanders RT Monitor Procedure Data Cath Procedure Fluoroscopy Diagnostic fluoroscopy Total fluoroscopy Time: 5.4 time: 5.4 min min Diagnostic fluoroscopy Total fluoroscopy dose: 945 dose: 945 mGy mGy Contrast Material Contrast Material Type Amount (ml) Isovue 300 132 Entry Location Entry Primary Successful Side Size Upsize Upsize Entry Closure Succes sful Closure Location (Fr) 1 (Fr) 2 (Fr) Remarks Device Remarks Femoral Right 6 Fr 6 Fr Exoseal artery Long Short Estimated blood loss: 10 ml Diagnostic catheters Device Type Used For End Catheter Placement Cordis 5Fr JL 4.0 Procedure Catheter (MP) Cordis 5Fr 3DRC Catheter Procedure (MP) Diagnostic Infinity 5Fr Procedure AR MOD Catheter Diagnostic Infinity 5Fr Procedure JR 4 catheter Cordis 5Fr Pigtail Ventriculography Catheter (MP) Procedure Complications No complications Procedure Medications Medication Administration Route Dosage Oxygen NC 2 l/min Lidocaine 2% added to field 20 Heparin Flush Bag added to field 2 bags (1000units/500ml NS) 0.9% NaCl I.V. 100 ml/hr Versed I.V. 2 mg Fentanyl I.V. 100 mcg Versed I.V. 1 mg Fentanyl I.V. 50 mcg Hemodynamics Rest BSA: 1.92 (m2) O2 Consumption: Estimated: 246.88 (ml/min) O2 Consumption indexed : Estimated:128.58 (ml/min/m) Heart Rate: 105 (bpm) Pressure Samples Time Site Value (mmHg) Purpose Heart Use Rate(bpm) 15:09 LV 111/12,13 Snapshot 84 15:09 LV 111/-51,14 Snapshot 87 15:09 AO 94/62(74) Pullback 106 15:09 LV 85/17,31 Pullback 106 Gradients Valve Time Site 1 Site 2 Mean SEP/DFP Peak To Heart Use (mmHg) (sec/min) Peak Rate (mmHg) (bpm) Aortic 15:09 LV AO 0 3 0 106 85/17,31 94/62(74) Calculations Valve P-P Mean Valve Index Valve Source Name Gradient Area Flow (cm2) Aortic 0 0 0 0 Snapshots Pre Cath Intra NCS Post Cath Vital Signs Time Heart Resp SPO2 NIBP (mmHg) Rhythm Pain Sedation Rate (ipm) (%) Status Level (bpm) 14:44:54 106 24 99 163/108(131) NSR 0 (11) 10(A) , No pain 14:49:08 103 21 93 148/88(117) NSR 0 (11) 10(A) , No pain 14:53:24 111 18 96 134/83(99) NSR 0 (11) 10(A) , No pain 14:57:38 103 16 96 136/78(93) NSR 0 (11) 10(A) , No pain 15:01:45 106 16 98 136/74(106) NSR 0 (11) 9(A) , No pain 15:06:47 105 17 98 126/81(94) NSR 0 (11) 9(A) , No pain 15:10:56 104 17 98 137/79(106) NSR 0 (11) 9(A) , No pain 15:16:00 101 17 95 133/75(97) NSR 0 (11) 10(A) , No pain Medications Time Medication Route Dose Verified Delivered Reason Notes Effe ctiveness by by 14:43:57 Oxygen NC 2 Frank Buffie used for l/min St. Bob Garibay RN procedure 14:44:05 Lidocaine 2% added 20ml Frank Frank for local to vial [facility] anesthetic field MD WARNER 14:45:47 Heparin Flush added 2 Frank Frank used for Bag to bags [facility] procedure (1000units/500ml field MD WARNER NS) 14:45:57 0.9% NaCl I.V. 100 Frank Cardoza Per ml/hr St. Bob Garibay RN physician 14:55:17 Versed I.V. 2 mg Frank Cardoza for [facility]. Bob Garibay RN sedation 14:55:23 Fentanyl I.V. 100 Frank Beltránie for mcg [facility] Bob Garibay RN sedation 15:02:51 Versed I.V. 1 mg Frank Cardoza for [facility]. Bob Garibay RN sedation 15:02:56 Fentanyl I.V. 50 Frank Cardoza for mcg [facility] Bob Garibay RN sedation Procedure Log Time Note 14:30:37 Patient Height : 152.4 cm 14:30:46 Patient Weight : 96.62 kg 14:31:20 Diagnostic Cath status Elective 14:31:24 Sony Garibay RN sent for patient. Start room use. 14:31:26 Time tracking: Regular hours 14:31:31 Plan of Care:Hemodynamics will remain stable., Cardiac rhythm will remain stable., Comfort level will be maintained., Respiratory function will remain adequate., Patient/ family verbilizes understanding of procedure., Procedure tolerated without complication., Recovers from procedure without complications.. 14:40:19 Patient received from Pre/Post Procedure Room to [facility] 2 Alert and oriented. Tansferred to table in Supine position. 14:40:21 Warm blankets applied, and caroline hugger turned on for patient comfort. 14:40:22 Correct patient and procedure confirmed by team. 14:40:24 Signed procedure consent form obtained from patient. 14:40:26 ECG and BP/O2 sat monitors applied to patient. 14:40:46 H&P Date Dictated: 11/01/2016 Within 30 days and on chart., H&P Addendum completed by physician on day of procedure. (MUST COMPLETE FOR ALL OUTPATIENTS). 14:40:47 Pre-procedure instructions explained to patient. 14:40:49 Family in waiting room. 14:40:52 Patient NPO since Midnight. 14:41:22 Is the patient allergic to Iodine/contrast media? No. 14:42:01 Is patient on blood thinner?Yes 14:42:06 ACC The patient was administered the following blood thiners within the last 24 hours: Coumadin 14:42:44 Patient diabetic? No. 14:42:46 Snore? Yes 14:42:48 Sleep apnea? No 14:42:57 Airway obstruction? Yes COPD 14:43:00 Dentures? No ? 14:43:11 IV patent on arrival in left antecubital with 0.9% NaCl at [facility]. 14:43:18 Lab results completed and on chart. 14:43:23 Right groin area was prepped with chlora-prep and draped in sterile fashion 14:43:35 Alarms reviewed by R. N. 14:43:36 Sharps counted by scrub and verified by R.N. 14:43:36 Physician paged 14:43:37 Physician arrived 14:43:42 Vital chart was started 14:43:57 Oxygen 2 l/min NC was administered by Sony Garibay RN; used for procedure; 14:44:05 Lidocaine 2% 20ml vial added to field was administered by Frank Rodriguez MD; for local anesthetic; 14:45:47 Heparin Flush Bag (1000units/500ml NS) 2 bags added to field was administered by Frank Rodriguez MD; used for procedure; 14:45:57 0.9% NaCl 100 ml/hr I.V. was administered by Sony Garibay RN; Per physician; 14:52:03 --------ALL STOP TIME OUT------ 14:52:04 Final Timeout: patient, procedure, and site verified with staff and physician. All members of the team are in agreement. 14:52:06 Right groin site verified by team. 14:52:10 Sedation plan: IV Moderate Sedation Versed, Fentanyl 14:52:22 Full Disclosure recording started 14:52:28 Baseline sample Acquired. 14:52:36 Use device set Femoral Dx 14:54:17 Procedure started. 14:54:31 Local anesthetic to right femoral artery with Lidocaine 2% by Frank Rodriguez MD.INITIAL ACCESS ONLY 14:55:17 Versed 2 mg I.V. was administered by Sony Garibya RN; for sedation; 14:55:23 Fentanyl 100 mcg I.V. was administered by Sony Garibay RN; for sedation; 14:55:44 A 6 Fr Long sheath was inserted into the Right Femoral artery 14:55:50 Zero performed for pressure channel P1 14:56:06 Acist Syringe opened to sterile field. 14:56:07 Bag Decanter opened to sterile field. 14:56:07 Medline Cath Pack opened to sterile field. 14:56:14 St Clayton 260cm J .035 wire opened to sterile field. 14:56:16 Acist Hand Control opened to sterile field. 14:56:17 Acist Manifold opened to sterile field. 14:56:17 Diagnostic Infinity 5Fr Multipack catheter opened to sterile field. 14:56:20 Tegaderm 4 x 4 opened to sterile field. 14:56:22 Terumo 6Fr [place] Destination Sheath opened to sterile field. 14:56:35 Terumo 6Fr [place] Sheath opened to sterile field. 14:56:53 A Cordis 5Fr JL 4.0 Catheter (MP) was advanced over the wire and used for Procedure. 14:58:17 LCA angiography performed. 14:58:56 Catheter removed. 14:59:04 A Cordis 5Fr 3DRC Catheter (MP) was advanced over the wire and used for Procedure. 14:59:20 RCA angiography performed. 15:00:27 Catheter removed. 15:01:12 A Diagnostic Infinity 5Fr AR MOD Catheter was advanced over the wire and used for Procedure. 15:02:51 Versed 1 mg I.V. was administered by Sony Garibay RN; for sedation; 15:02:56 Fentanyl 50 mcg I.V. was administered by Sony Garibay RN; for sedation; 15:04:06 Catheter removed. 15:04:38 A Diagnostic Infinity 5Fr JR 4 catheter was advanced over the wire and used for Procedure. 15:06:42 Catheter removed. 15:06:48 Medtronic Launcher 6Fr HS II guide catheter opened to sterile field. 15:07:58 Catheter removed. 15:08:10 A Cordis 5Fr Pigtail Catheter (MP) was advanced over the wire and used for Ventriculography. 15:09:35 EF : 55 % 15:09:40 LV hemodynamics recorded. 15:09:41 Catheter removed. 15:09:56 Sheath upsized to a 6 Fr Short. 15:10:02 Sheath removed intact; hemostasis achieved with Exoseal to the Right Femoral artery. 15:11:17 Procedure ended.(Physican Out) 15:11:34 Fluoroscopy time 05.40 minutes. 15:11:39 Fluoroscopy dose: 945 mGy 15:11:39 Flurop Dose total: 945 15:11:46 Contrast amount:Isovue 300 132ml. 15:11:51 Sharps counted by scrub and verified by R.N. 15:11:55 Insertion/operative site no bleeding no hematoma. 15:12:02 Post-op/insertion site Right Femoral artery dressed using a 4 x 4 and Tegaderm. 15:12:41 Post right femoral artery:stable 15:12:43 Post Procedure Pulses reassessed and unchanged 15:12:49 Post-procedure physical assessment completed. ASA score P 2 - A patient with mild systemic disease as per Frank Rodriguez MD. 15:13:08 Post procedure rhythm: unchanged. 15:13:11 Estimated blood loss: 10 ml 15:13:17 Post procedure instruction explained to patient.Patient verbalizes understanding. 15:13:24 Procedure and supply charges have been captured, reviewed, submitted and are correct. 15:13:47 Procedure Complication : No complications 15:13:50 Vital chart was stopped 15:13:51 See physician's report for complete and final results. 15:13:53 Report given to Pre/Post Procedure Room. 15:13:56 Patient transfered to Pre/Post Procedure Room with Stretcher. 15:14:00 Procedure ended. 15:14:00 Full Disclosure recording stopped 15:14:04 End room use (Document Last) Device Usage Item Name Manufacture Quantity Catalog Hospital Part Current Minimal L ot# / Number Charge Number Stock Stock Serial# Code Acist Acist 1 83274 579294 220496 727211 20 Syringe Medical Systems Inc Bag Microtek 1 2002S 913052 26928 961816 5 Decanter Medical Inc. Medline Cardinal 1 [id number] 167752 94818 927534 [address] [facility] [place] 1 208900 410857 212298 439369 30 260cm J .035 wire Acist Hand Acist 1 54024 812666 141317 171663 5 Control Medical Systems Inc Acist Acist 1 22452 539111 864701 387302 5 Manifold Medical Systems Inc Diagnostic Cardinal 1 DT9209 436647 42827 570859 30 Infinity Health 5Fr Multipack catheter Tegaderm 4 3M 1 1626W 153598 602217 809077 5 x 4 Terumo 6Fr Terumo 1 RSR01 070074 24386 629004 5 [place] Destination Sheath Terumo 6Fr Terumo 1 DWQ677 985840 444057 143330 40 [place] Sheath Cordis 5Fr Cardinal 1 863603 5 JL 4.0 Health Catheter (MP) Cordis 5Fr Cardinal 1 049908 5 3DRC Health Catheter (MP) Diagnostic Cardinal 1 [id number] 494652 256651 091615 15 Infinity Health 5Fr AR MOD Catheter Diagnostic Cardinal 1 [id number] 671692 592615 949562 5 InfinReInnervate Health 5Fr JR 4 catheter Medtronic Medtronic 1 [id number] 288795 81449 279262 1 Launcher 6Fr HS II guide catheter Cordis 5Fr Cardinal 1 629461 5 Pigtail Health Catheter (MP) Signature Audit [place] Stage Time Signature Unsigned Intra-Procedure 11/09/2016 Bertha Sanders 3:17:00 PM RT(R) Signatures Monitor : Bertha Sanders Signature : RT Date : Time : [facility] [address] [place] [address]
[2016-11-09] MEDS ORDERED: ZANTAC150 MG PO (11:28)
[2016-11-09] MEDS ORDERED: EDARBYCLOR 40-1 EACH PO (11:29)
[2016-11-09] MEDS ORDERED: CARDURA2 MG PO (11:30)
[2016-11-09] MEDS ORDERED: HYDROCHLOROTH12.5 M1 PO (11:31)
[2016-11-09] MEDS ORDERED: ZOLOFT50 MG PO (11:32)
[2016-11-09] MEDS ORDERED: SINGULAIR10 MG PO (11:33)
[2016-11-09] MEDS ORDERED: BAYER CHEWABLE81 MG PO (11:34)
[2016-11-09] MEDS ORDERED: THERMOTABS 1 GM1 GM PO (11:35)
[2016-11-09] MEDS ORDERED: XOPENEX 0.0.63 MG/3 UPD (11:37)
[2016-11-09 11:43] VITALS: BP 139/71; Ht 177.8 cm; Wt 90.9 kg
[2016-11-09 11:47] LABS: BASOPHILS 0.3 % (0-2); EOSINOPHILS 2.5 % (0-7); HEMATOCRIT 34.6 % (42.0-54.0); HEMOGLOBIN 11.7 g/dL (13.5-17.5); IMMATURE GRANULOCYTES 1.4 % (0-5); LYMPHOCYTES 23.5 % (15-50); MCH 27.7 pg (26.0-34.0); MCHC 33.8 g/dL (31.0-37.0); MCV 81.8 fL (80.0-100.0); MEAN PLATELET VOLUME 7.9 fL (7.4-10.4); MONOCYTES 10.3 % (2-11); PLATELET COUNT 271 10x3/uL (130-400); RBC 4.23 10x6/uL (4.20-6.10); RDW 15.2 % (11.5-14.5); WBC 9.6 10x3/uL (4.8-10.8)
[2016-11-09 12:09] LABS: INR 1.24 (0.85-1.17); PROTIME 15.5 SECONDS (11.6-15.0)
[2016-11-09 12:12] LABS: CALC OSMOLALITY 250 mosm/kg (275-300); CALCIUM 8.7 mg/dL (8.5-10.1); CARBON DIOXIDE 28.1 mmol/L (21.0-32.0); CHLORIDE - SERUM 89 mmol/L (98-107); POTASSIUM - SERUM 3.7 mmol/L (3.5-5.1); SODIUM 125 mmol/L (136-145); UREA NITROGEN 12 mg/dL (7-18); eGFR NON AFRICAN AMERICAN 78 mL/min (90-120)
[2016-11-09 12:16] LABS: GLUCOSE 88 mg/dL (74-106)
--- NOTE | 2016-11-09 15:45 | NUR ---
2L NC, NO RESP DISTRESS NOTED. RIGHT GROIN 6F EXOSEAL CDI, NO BLEEDING OR HEMATOMA NOTED. NO C/O NAUSEA OR CHEST PAIN. VSS. INSTRUCTED PT TO KEEP HEAD FLAT ON PILLOW AND RIGHT LEG STRAIGHT.
--- NOTE | 2016-11-09 16:15 | NUR ---
SANDWICH TRAY AND DRINK GIVEN. NO C/O NAUSEA. 2L NC, NO RESP DISTRESS. RIGHT GROIN 6F EXOSEAL CDI, NO BLEEDING OR HEMATOMA NOTED. VSS. WILL CONTINUE TO MONITOR.
--- NOTE | 2016-11-09 17:00 | NUR ---
HOB ELEVATED 30 DEGREES, RIGHT GROIN 6F EXOSEAL CDI, NO BLEEDING OR HEMATOMA NOTED.
--- NOTE | 2016-11-09 17:21 | NUR ---
LEFT HAND PIV D/C'D WITH CATHETER INTACT, BAND AID TO SITE. UP TO BEDSIDE TO GET DRESSED.
--- NOTE | 2016-11-09 17:26 | NUR ---
UP TO RESTROOM TO VOID.
--- NOTE | 2016-11-09 17:30 | NUR ---
DISCHARGE INSTRUCTIONS GIVEN, VERBALIZED UNDERSTANDING.
--- NOTE | 2016-11-09 17:40 | NUR ---
TAKEN OUT VIA WHEELCHAIR BY CATH BALLOON SANDER. LEFT FACILITY WITH FAMILY MEMBER AND ALL PERSONAL BELONGINGS.
--- NOTE | 2016-11-10 08:14 | OP ---
PATIENT NAME: TAWANNA FINNEGAN MEDICAL RECORD: [id number] :43 LOCATION:D.CAT ADMISSION DATE: SURGEON: JOSE LYN MD DATE OF OPERATION: 11/09/2016 PROCEDURES: Left heart catheterization, selective coronary angiography, right femoral approach. CATHETERS: We used a long sheath secondary to previous problems with access and tortuosity. The procedure was well tolerated and the patient returned to ghosh. Sheath was removed. ExoSeal device placed. FINDINGS: Left ventriculography in 30-degree KIM view: Normal wall motion and normal systolic function. CORONARY ANATOMY. LEFT MAIN: Left main is free of disease. LAD: Free of disease in the diagonal system. CIRCUMFLEX: Free of disease in the marginal system. RIGHT CORONARY ARTERY: Dominant artery, gives rise to PDA, free of disease. IMPRESSION: Patent stent. Normal LV function, noncardiac cause of dyspnea. TRANSINT:[id number] Voice Confirmation ID: [id number] DOCUMENT ID: [id number] JOSE LYN MD at 0814 CC: [id number] DICTATION DATE: 11/09/16 151 MANAGER FURNITURE: 11/09/162052 DEP CLI 11/09/16 [facility] [address] [place] [place] [address]
== END 2016-11-09 17:40 | disposition home or self-care (01) ==
LOC: D.CATH 10:59
PROVIDERS: Internal Medicine Interventional Cardiology
DX: R06.00 Dyspnea, unspecified (principal); Z01.812 Encounter for preprocedural laboratory examination

== ENCOUNTER 2016-12-22 10:41 | Inpatient (IN) | payer MEDICARE, OTHER ==
[~2016-12-22 10:41] MED LIST changes: +EDARBYCLOR 40-1 EACH PO; +HYDROCHLOROTH12.5 M1 PO; +THERMOTABS 1 GM1 GM PO; +ZANTAC150 MG PO; +ZOLOFT50 MG PO
--- NOTE | 2016-12-22 11:29 | NUR ---
RESP STATUS UPON INITAL ASSESSMENT, PATIENT HAVE LABORED BREATHING ON 3L (HOME REGIMEN). LUNGS DIMINISHED ON THE L SIDE. A/A UPDRAFT ORDERED. AWAITING TO HEAR FROM ANESTHESIA ON FURTHER ORDERS. WILL CONTINUE TO MONITOR.
[2016-12-22 11:42] LABS: BASOPHILS 0.3 % (0-2); EOSINOPHILS 0.9 % (0-7); HEMATOCRIT 31.5 % (42.0-54.0); HEMOGLOBIN 10.2 g/dL (13.5-17.5); IMMATURE GRANULOCYTES 0.3 % (0-5); LYMPHOCYTES 20.8 % (15-50); MCH 26.9 pg (26.0-34.0); MCHC 32.4 g/dL (31.0-37.0); MCV 83.1 fL (80.0-100.0); MEAN PLATELET VOLUME 7.8 fL (7.4-10.4); MONOCYTES 10.1 % (2-11); NEUTROPHILS 67.6 % (40-80); RBC 3.79 10x6/uL (4.20-6.10); RDW 15.6 % (11.5-14.5); WBC 6.5 10x3/uL (4.8-10.8)
[2016-12-22 11:45] LABS: PLATELET COUNT 168 10x3/uL (130-400)
[2016-12-22 12:32] LABS: CALC OSMOLALITY 263 mosm/kg (275-300); CALCIUM 8.8 mg/dL (8.5-10.1); CARBON DIOXIDE 36.1 mmol/L (21.0-32.0); CHLORIDE - SERUM 92 mmol/L (98-107); GLUCOSE 86 mg/dL (74-106); POTASSIUM - SERUM 3.4 mmol/L (3.5-5.1); SODIUM 132 mmol/L (136-145); UREA NITROGEN 13 mg/dL (7-18); eGFR NON AFRICAN AMERICAN 78 mL/min (90-120)
[2016-12-22 13:51] LABS: ALKALINE PHOSPHATASE 60 U/L (46-116); ALT (SGPT) 22 U/L (10-68); BILIRUBIN - TOTAL 0.69 mg/dL (0.2-1.3); PROTEIN - SERUM 6.3 g/dL (6.4-8.2)
[2016-12-22 13:52] LABS: CKMB 0.9 U/L (0.0-3.6); CREATINE KINASE 32 UL (21-232); PRO BNP 2272 pg/mL (0-125); TROPONIN-I < 0.017 ng/mL (0.000-0.060)
--- NOTE | 2016-12-22 14:15 | NUR ---
EGD PROCEDURE CANCELLED. CARDIOLOGY CONSULTED. PT TO BE ADMITTED, WITH PULMONARY CONSULT WELL. PT TO BE ADMITTED TO 2112 FOR CARDIAC MONITORING AND PULMONARY EVALUATION. 1345- REPORT CALLED TO GERMAN TROY RN. 1405- PT TO 2112 VIA WHEELCHAIR. 3L O2 NC, IN PLACE. IVF @ KVO TO RIGHT ARM. ORDERS COMPLETED: EKG, UPDRAFT, ECHO 1415- DR. REDDY NOTIFIED OF CONSULT.
[2016-12-22 14:23] VITALS: BP 122/70; BMI 30.2
[2016-12-22] MEDS ORDERED: HYDROCHLOROTHIA25 MG PO (14:44)
[2016-12-22] MEDS ORDERED: METOPROLOL TART50 MG PO (14:48)
[2016-12-22] MEDS ORDERED: ATROVENT HFA12.9 GM INH (14:50)
[2016-12-22] MEDS ORDERED: COUMADIN7.5 MG PO (14:50)
--- NOTE | 2016-12-22 14:54 | NUR ---
PT ARRIVED TO UNIT FROM OP. PT A&O SITTING UP IN BED WITH AT BEDSIDE. PTS LUNGS HAVE WHEEZING THROUGHOUT LOBES. PULSE OX @98% WITH NC @3L IN PLACE HOWEVER PT FEELS SOB AND HAS LABORED BREATHING. PT WILL BE STRICT I&O AND VERBALIZED UNDERSTANDING, URINAL PROVIDED FOR ACCURACY. DAILY WEIGHT WELL AND PERFORMED ON STAND UP SCALE WITH SHOES, GOWN AND PJ PANTS IN PLACE CURRENT 210.6 WILL MONITER FOR WT. GAIN. BILAT FEET HAVE PITTING EDEMA, ELEVATED TO HELP REDUCE SWELLING. ADMISSION WORKUP COMPLETED. TELEMETRY WILL BE APPLIED. NO FURTHER NEEDS AT THIS TIME. WILL CPOC.
[2016-12-22 19:00] VITALS: BP 127/79
[2016-12-22 20:11] LABS: CKMB 1.2 U/L (0.0-3.6); CREATINE KINASE 40 UL (21-232); TROPONIN-I < 0.017 ng/mL (0.000-0.060)
[2016-12-23 02:22] LABS: CKMB 1.3 U/L (0.0-3.6); CREATINE KINASE 45 UL (21-232)
[2016-12-23 02:25] LABS: TROPONIN-I < 0.017 ng/mL (0.000-0.060)
--- NOTE | 2016-12-23 03:41 | NUR ---
CALL LIGHT IN REACH, WILL CONTINUE WITH PLAN OF CARE.
--- NOTE | 2016-12-23 04:50 | NUR ---
PATIENT IS ALERT WATCHING TV AT THIS TIME, DENIES PAIN OR NEEDS. CALL LIGHT IN REACH.
[2016-12-23 05:39] LABS: BASOPHILS 0 % (0-2); EOSINOPHILS 0 % (0-7); HEMATOCRIT 32.7 % (42.0-54.0); HEMOGLOBIN 10.6 g/dL (13.5-17.5); IMMATURE GRANULOCYTES 0.2 % (0-5); MCH 26.6 pg (26.0-34.0); MCHC 32.4 g/dL (31.0-37.0); MEAN PLATELET VOLUME 8.6 fL (7.4-10.4); MONOCYTES 4.5 % (2-11); NEUTROPHILS 73.3 % (40-80); RBC 3.99 10x6/uL (4.20-6.10); RDW 15.5 % (11.5-14.5)
[2016-12-23 06:11] LABS: INR 1.07 (0.85-1.17); PROTIME 13.8 SECONDS (11.6-15.0)
[2016-12-23 06:21] LABS: PLATELET COUNT 234 10x3/uL (130-400); WBC 4.5 10x3/uL (4.8-10.8)
[2016-12-23 06:24] LABS: CALC OSMOLALITY 258 mosm/kg (275-300); CALCIUM 8.4 mg/dL (8.5-10.1); CARBON DIOXIDE 36.3 mmol/L (21.0-32.0); GLUCOSE 111 mg/dL (74-106); MAGNESIUM - SERUM 1.4 mg/dL (1.8-2.4); POTASSIUM - SERUM 3.7 mmol/L (3.5-5.1); PRO BNP 3045 pg/mL (0-125); SODIUM 128 mmol/L (136-145); T4 THYROXIN - FREE 1.18 ng/dL (0.76-1.46); THYROID STIMULATING HORMONE 1.09 uIU/mL (0.36-3.74); UREA NITROGEN 14 mg/dL (7-18); eGFR NON AFRICAN AMERICAN 78 mL/min (90-120)
[2016-12-23 06:32] LABS: CHLORIDE - SERUM 85 mmol/L (98-107)
[2016-12-23 08:00] VITALS: BP 128/76
--- NOTE | 2016-12-23 08:37 | NUR ---
UP IN BED EATING LUNCH AT THIS TIME AND WATCHING TV. NO ACUTE DISTRESS NOTED. WILL CONTINUE PLAN FO CARE.
--- NOTE | 2016-12-23 10:35 | NUR ---
UP IN BED WATCHING TV AT THIS TIME. NO ACUTE DISTRESS NOTED. WILL CONTINUE PLAN OF CARE.
[2016-12-23 12:00] VITALS: BP 112/62
--- NOTE | 2016-12-23 12:35 | NUR ---
UP IN BED EATING LUNCH AT THIS TIME AND VISITING WITH . NO ACUTE DISTRESS NOTED. WILL CONTNIUE PLAN OF CARE.
--- NOTE | 2016-12-23 15:26 | NUR ---
UP IN BED VISITING WITH FAMILY AT THIS TIME. NO ACUTE DISTRESS NOTED. WILL CONTINUE PLAN OF CARE.
[2016-12-23 15:39] VITALS: BP 116/67
--- NOTE | 2016-12-23 18:44 | NUR ---
UP IN BED AT THIS TIME WATCHING TV. DENIES ANY NEEDS. NO ACUTE DISTRESS NOTED. WILL CONTINUE PLAN OF CARE.
[2016-12-23 19:00] VITALS: BP 145/76
[2016-12-24] VITALS (7 sets, daily range): BP systolic 106–144; BP diastolic 56–110
--- NOTE | 2016-12-24 01:12 | NUR ---
PATIENT IS ALERT WATCHING TV, DENIES NEEDS OR PAIN AT THIS TIME. CALL LIGHT IN REACH.
--- NOTE | 2016-12-24 03:43 | NUR ---
AWAKE WATCHING TV. DENIES ANY NEEDS OR DISCOMFORT. HAS CALL LIGHT IN REACH.
[2016-12-24 05:50] LABS: BASOPHILS 0 % (0-2); EOSINOPHILS 0 % (0-7); HEMATOCRIT 30.6 % (42.0-54.0); HEMOGLOBIN 9.9 g/dL (13.5-17.5); IMMATURE GRANULOCYTES 0.3 % (0-5); LYMPHOCYTES 10.1 % (15-50); MCH 26.5 pg (26.0-34.0); MCHC 32.4 g/dL (31.0-37.0); MCV 81.8 fL (80.0-100.0); MEAN PLATELET VOLUME 8.1 fL (7.4-10.4); NEUTROPHILS 82.6 % (40-80); RBC 3.74 10x6/uL (4.20-6.10); RDW 15.4 % (11.5-14.5)
[2016-12-24 05:52] LABS: PLATELET COUNT 181 10x3/uL (130-400); WBC 9.3 10x3/uL (4.8-10.8)
[2016-12-24 06:08] LABS: CALCIUM 8.1 mg/dL (8.5-10.1); CREATININE - SERUM 1.1 mg/dL (0.6-1.3); MAGNESIUM - SERUM 1.3 mg/dL (1.8-2.4)
--- NOTE | 2016-12-24 08:00 | NUR ---
UP IN BED EATING BREAKFAST AT THIS TIME. DENIES ANY NEEDS. NO ACUTE DISTRESS NOTED. WILL CONTINUE PLAN OF CARE.
--- NOTE | 2016-12-24 11:01 | NUR ---
UP IN BED VISITING WITH AT THIS TIME. DENIES ANY NEEDS. WILL CONTINUE PLAN OF CARE.
--- NOTE | 2016-12-24 14:01 | NUR ---
NO CHANGE; PT ABLE TO STATE NEEDS. TOILETS SELF INDEPENDENTLY. WILL CONTINUE PLAN OF CARE.
--- NOTE | 2016-12-24 17:02 | NUR ---
UP IN BED WATCHING TV AT THIS TIME. DENIES ANY NEEDS. NO ACUTE DISTRESS NOTED. WILL CONTINUE PLAN OF CARE.
--- NOTE | 2016-12-24 22:33 | NUR ---
K+ 3.3, FOLLOW [id number]
--- NOTE | 2016-12-24 23:59 | NUR ---
PT RESTING WELL WITHOUT C/O OR DISTRESS NOTED. FEW NEEDS VOICED. CALL LIGHT WITHIN REACH.
--- NOTE | 2016-12-25 04:05 | NUR ---
ASSESSMENT COMPLETE, SEE FLOWSHEET, PT WATCHING TV, DENIES ANY NEEDS, BED IS LOW, SRX2, CALL LIGHT IN REACH, WILL CONTINUE PLAN OF CARE
[2016-12-25 05:40] LABS: BASOPHILS 0 % (0-2); EOSINOPHILS 0 % (0-7); HEMATOCRIT 34.1 % (42.0-54.0); HEMOGLOBIN 10.7 g/dL (13.5-17.5); IMMATURE GRANULOCYTES 0.2 % (0-5); LYMPHOCYTES 6.9 % (15-50); MCH 26.4 pg (26.0-34.0); MCHC 31.4 g/dL (31.0-37.0); MEAN PLATELET VOLUME 8.6 fL (7.4-10.4); MONOCYTES 4.5 % (2-11); NEUTROPHILS 88.4 % (40-80); RBC 4.05 10x6/uL (4.20-6.10); RDW 15.6 % (11.5-14.5); WBC 9.9 10x3/uL (4.8-10.8)
[2016-12-25 05:45] LABS: MCV 84.2 fL (80.0-100.0); PLATELET COUNT 241 10x3/uL (130-400)
[2016-12-25 06:06] LABS: ANION GAP 12.5 mmol/L (8-16); CALCIUM 8.1 mg/dL (8.5-10.1); CARBON DIOXIDE 36.3 mmol/L (21.0-32.0); CREATININE - SERUM 1.2 mg/dL (0.6-1.3); MAGNESIUM - SERUM 1.4 mg/dL (1.8-2.4)
[2016-12-25 06:07] LABS: POTASSIUM - SERUM 3.8 mmol/L (3.5-5.1)
[2016-12-25 06:33] VITALS: BP 145/84
--- NOTE | 2016-12-25 06:33 | NUR ---
PT CAME BACK FROM XRAY , GIVING SOUL-MEDROL, IV STARTED LEEKING, PT WANT TO WAIT ON IV UNTIL AFTER BREATHING TREATMENT
[2016-12-25 09:09] VITALS: BP 147/86
[2016-12-25 10:35] LABS: INR 1.02 (0.85-1.17); PROTIME 13.2 SECONDS (11.6-15.0)
[2016-12-25] MEDS ORDERED: AUGMENTIN 875-11 TAB PO (12:03)
[2016-12-25] MEDS ORDERED: PREDNISONE20 MG PO (12:05)
[2016-12-25] MEDS ORDERED: FUROSEMIDE40 MG PO (12:35)
[2016-12-25] MEDS ORDERED: DOXYCYCLINE HY100 M2 PO (12:35)
[2016-12-25 12:42] VITALS: BP 117/64
--- NOTE | 2016-12-25 14:10 | NUR ---
ALERT AND ORIENTED X4. SITTING UP ON SIDE OF BED. AT BEDSIDE. DISCHARGE INSTRUCTIONS GIVEN VERBALLY AND WRITTEN. DISCHARGE PAPERS SIGNED ON CHART. NO IV. PRESCRIPTIONS CALL TO PHARMACY. ESCORT TO RIDE VIA WHEELCHAIR. REMAINS FREE FROM INJURY.
--- NOTE | 2016-12-26 07:22 | HP ---
PATIENT: TAWANNA FINNEGAN MEDICAL RECORD: [id number] ACCOUNT: [id number] LOCATION:[address] : 43 ADMISSION DATE: 12/22/16 HISTORY AND PHYSICAL EXAMINATION DATE OF ADMISSION: 12/22/2016 CHIEF COMPLAINT: Shortness of breath. HISTORY OF PRESENT ILLNESS: The patient is a 71-year-old gentleman with long-standing history of having COPD. Apparently, the patient was to have an EGD earlier today, when he was noted to have increasing shortness of breath. He was seen in outpatient by local director water and waste services, who felt the patient should be admitted. He had also had atrial fibrillation. PAST MEDICAL HISTORY: His past history is significant in that he has had, as stated above, long-standing history of having COPD. He has had peripheral vascular disease. He has had TIAs and hypertension. He has had tobacco dependence syndrome, hyperlipidemia, gout, vitamin D deficiency, gastroesophageal reflux, rheumatoid arthritis, and hypothyroidism. PAST SURGICAL HISTORY: He had carotid endarterectomy in 2008 with patch angioplasty. He has had carpal tunnel bilaterally, left elbow surgery, and cervical spine with lumbar laminectomy in 1981. FAMILY HISTORY: Father had heart disease. Mother had rheumatoid arthritis. One brother with malignant tumor of the lung. Also one brother with Parkinson disease. MEDICATIONS: His medications have been allopurinol 300 mg once a day, Carafate 1 gram q.a.c. and at bedtime, doxazosin 2 mg p.o. daily, finasteride 5 mg once a day, Lasix 40 mg one p.o. daily, hydrochlorothiazide 25 mg once a day, KCl 20 mEq one p.o. daily, levothyroxine 150 mcg once a day, one aspirin a day, metoprolol tartrate 50 mg p.o. b.i.d., Singulair 10 mg once a day, Mucinex 1200 mg p.o. b.i.d., omeprazole 20 mg once a day, pravastatin 40 mg once a day, sertraline 50 mg once a day, Tudorza 40 mcg one puff q. 12 hours. ALLERGIES: He has known drug allergies. REVIEW OF SYSTEMS: CONSTITUTIONAL: He denies any headache, seizure, or syncope. Denies change in visual or auditory acuity. PULMONARY: He denies any sputum production. CARDIOVASCULAR: He has had no chest pain, palpitation, PND, or orthopnea. GI: No chronic nausea, vomiting, melena, or hematochezia. URINARY: No urgency, frequency, or dysuria. PHYSICAL EXAMINATION: VITAL SIGNS: He was afebrile. His blood pressure was 122/70, his O2 sat was 97%, and his pulse was 89. HEENT: His head is normocephalic. No lesions. Ears; TMs are clear. Eyes; pupils are equal, round, and reactive to light. His extraocular movements are intact. Nasal cavity, oral cavity, and oropharynx are clear. NECK: Supple. There is no adenopathy. HEART: Slightly irregular. HISTORY AND PHYSICAL [id number] TAWANNA FINNEGAN LUNGS: He had decreased breath sounds in all taylor. He had some end expiratory wheezes. LABORATORY DATA AND DIAGNOSTIC DATA: The patient did have an EKG showing atrial fib, controlled rate of 74. The patient had white count 6.5, hemoglobin 10.2, hematocrit 31.5, and platelets were 168. Potassium 3.4, sodium 132, chloride is 92, BUN is 13, and creatinine is 1.0. ProBNP is elevated at 2272. Chest x-ray shows no acute chest process or significant change from comparison. He has remote granulomatous disease present. ASSESSMENT: History of chronic atrial fib with COPD exacerbation, hypoxia, rheumatoid arthritis, hyperlipidemia, hypothyroidism, hypertension, and depression. PLAN: The patient will be admitted. Cardiology as well as pulmonary consultation will be obtained. He will be placed on IV antibiotics as well as IV steroids. Updraft therapies will be performed. He will be placed on telemetry. Also, he will be given diuresis. He will have an echocardiogram. TRANSINT:[id number] Voice Confirmation ID: [id number] DOCUMENT ID: [id number] MARY YEE MD at 0722 CC: [id number] DICTATION DATE: 12/22/161731 CREDIT RISK REVIEW OFFICER: 12/22/162037 DIS IN 12/25/16 [facility] [address] [place] [address]
--- NOTE | 2016-12-29 12:49 | EC ---
PATIENT:TAWANNA FINNEGAN DATE OF SERVICE: 12/22/16 SEX: M MEDICAL RECORD: [id number] DATE OF : 43 LOCATION:D. D.211 AGE OF PATIENT: 71 ADMISSION DATE: 12/22/16 REFERRING PHYSICIAN: INTERPRETING PHYSICIAN: CHI NDIAYE MD ECHOCARDIOGRAM REPORT ECHO CHARGES 4 ECHO COMPLETE CLINICAL DIAGNOSIS: CHF ECHOCARDIOGRAPHIC MEASUREMENTS (adult normal given) AC root (d.<3.7cm) 2.1 cm LV Septum d (<1.2 cm> 1.2 cm Valve Excursion 0.9 cm LV Septum (systole) 1.4 cm Left Atria (s.<4.0cm> 3.7 cm LVPW d(<1.2cm) 1.1 cm RV (d.<2.3cm) 3.5 cm LVPW (sytole) 1.8 cm LV diastole(<5.6CM) 4.5 cm MV E-F(>70mm/sec) cm LV systole 3.0 cm LVOT Diameter 1.7 cm MV exc.(>10mm) 1.1 cm Est.ejection fraction (50-75%) % Pericardial Effusion N DOPPLER: LVIT cm/sec A 150 cm/sec E cm/sec LA cm/sec RVSP 37 mmHg LVOT 92 cm/sec AOP1/2T m/s Asc. Ao 160 cm/sec RVOT 80 cm/sec RA cm/sec PA 113 cm/sec AV Gradient Peak 10.20mmHg AV Mean 4.64 mmHg AV Area 1.2 cm MV Gradient Peak 14.05mmHg MV Mean 4.49 mmHg MV Area cm COMMENTS: Travel Guide: 2 SANDRA STEINBERG Toll Bridge Operator: 4 Dr. Ndiaye TAPE# PACS DATE OF SERVICE: 12/22/2016 PROCEDURE: Transthoracic echocardiogram. FINDINGS: 1. The left ventricle is showing evidence of mild hypertensive heart disease with LVH that is concentric in nature. The patient has no regional wall motion abnormalities. The ejection fraction is 65%. 2. The mitral valve appears to be normal by structure. There is no evidence of significant mitral regurgitation. ECHOCARDIOGRAM REPORT [id number] TAWANNA FINNEGAN 3. The left atrium is normal size, normal function. 4. The right atrium is normal size, normal function. 5. The right ventricle is mildly dilated. The right ventricular systolic pressure is estimated at 35-40 mmHg. 6. The tricuspid valve is normal structurally with mild tricuspid regurgitation. 7. The pulmonary valve is not well visualized, but grossly normal. 8. The pericardium shows no evidence of pericardial effusion. 9. The IVC is not well demonstrated; however, it appears to be mildly dilated. Also, of note is mild right ventricular hypertrophy. CONCLUSIONS: The patient has evidence of mild hypertensive heart disease as well as mild pulmonary hypertension which may be reflected upon combination of left and right heart failure, diastolic in nature. TRANSINT:[id number] Voice Confirmation ID: [id number] DOCUMENT ID: [id number] 12/27/2016 Edited to correct date of service, dmm. CHI NDIAYE MD at 1249 CC: [id number] DICTATION DATE: 12/23/16 0744 LOOM CLEANER: 12/23/16 0817 DIS IN 12/25/16 [facility] [id number] [place] [address]
--- NOTE | 2017-01-02 11:43 | CN ---
PATIENT NAME:TAWANNA ARIZA MEDICAL RECORD: [id number] : 43 LOCATION:[facility] D.2113 ADMIT DATE: 12/22/16 ACCOUNT: [id number] CONSULTING PHYSICIAN: SHELTON REDDY MD REFERRING PHYSICIAN: MARY YEE MD DATE OF CONSULTATION: 12/22/2016 PULMONARY CONSULTATION CONSULT REQUESTING PHYSICIAN: Piotr Delgado MD REASON FOR CONSULTATION: Acute exacerbation of chronic obstructive pulmonary disease, dyspnea on exertion. HISTORY OF PRESENT ILLNESS: Mr. Ariza is a 71-year-old gentleman who has a history of severe COPD, home oxygen dependent. The patient has worsening shortness of breath for the last 4 to 5 weeks. He has dyspnea with mild exertion. He has cough without much sputum production. Also he has gained some weight. He has a 2-pillow orthopnea. Denies any chest pain. There is no fever or any chills, no night sweats. The patient came for EGD today. They are going to do the procedure because of the patient's worsened shortness of breath. REVIEW OF SYSTEMS: Mainly in the history of present illness. PAST MEDICAL HISTORY: 1. COPD of severe degree. 2. Chronic hypoxic respiratory failure. 3. Gastroesophageal reflux disease. 4. History of TIA. 5. History of pulmonary nodule since 2012. 6. Backache. PAST SURGICAL HISTORY: He has a back surgery, elbow and neck surgery. ALLERGIES: HE IS ALLERGIC TO TERAZOSIN. PRESENT MEDICATIONS: On Crediteratech was reviewed. PERSONAL AND SOCIAL HISTORY: The patient is an ex-smoker. He is a nondrinker. He is and lives with his . FAMILY HISTORY: Significant for cardiovascular disease and diabetes. PHYSICAL EXAMINATION: GENERAL: Now, the patient is lying comfortably. He is not in acute distress. VITAL SIGNS: The blood pressure is 122/70, pulse is 89, respiration is 18, temperature is 97.5, SpO2 is 98% on 3 liters nasal cannula. HEENT: Conjunctivae pink, sclerae not icteric. NECK: Supple, no JVD. CHEST: The chest excursion is minimal on both sides. There is prolonged expiration with wheezing. There are also crackles. HEART: Rhythm regular, normal sound, no murmur. ABDOMEN: Soft. Bowel sounds present. No hepatosplenomegaly. RECTAL: Deferred. EXTREMITIES: No cyanosis, no clubbing, no pedal edema. CONSULT REPORT [id number] TAWANNA ARIZA SKIN: Warm, normal turgor. CENTRAL NERVOUS SYSTEM: The patient is awake and alert. There are no obvious cranial nerve abnormality. The gait was not tested. IMAGING: Chest radiograph; there are increased interstitial markings. LABORATORY DATA: CBC; the WBC is 6.5, hemoglobin is 10.2, hematocrit 31.5, the platelet count is 168. Chemistry; sodium 132, potassium 3.4, BUN is 13, creatinine is 1, glucose 86. IMPRESSION: 1. Acute exacerbation of chronic obstructive pulmonary disease. 2. Tracheobronchitis. 3. Pulmonary edema. 4. Atrial fibrillation. 5. Chronic diastolic congestive heart failure. 6. Chronic hypoxic respiratory failure. 7. Gastroesophageal reflux disease. 8. History of pulmonary nodule. RECOMMENDATION: Start him on Xopenex and ipratropium nebulizer, Brovana and budesonide nebulizer, methylprednisolone IV, doxycycline IV. Check the CT scan of the chest in a.m. Supplemental oxygen as required. Mucinex DM. Follow up labs and chest radiograph in the morning. Dr. Delgado, thank you for involving me in the care of Mr. Ariza. TRANSINT:[id number] Voice Confirmation ID: [id number] DOCUMENT ID: [id number] SHELTON REDDY MD at 1143 CC: [id number] DICTATION DATE: 12/22/16 152 RANGER AIDE: 12/22/162030 DIS IN 12/25/16 [id number] [place] [address]
== END 2016-12-25 15:10 | disposition home or self-care (01) | DRG 292 ==
LOC: D.OPS 10:41 → D.M2 10:41 → D.OPS 14:18 → D.M2 14:18
PROVIDERS: Anesthesiology; Family Medicine; Internal Medicine Cardiovascular Disease; Internal Medicine Pulmonary Disease; ADMIT Family Medicine
DX: I11.0 Hypertensive heart disease with heart failure (principal); J44.1 Chronic obstructive pulmonary disease with (acute) exacerbation; E87.1 Hypo-osmolality and hyponatremia; J98.11 Atelectasis; J96.11 Chronic respiratory failure with hypoxia; I50.33 Acute on chronic diastolic (congestive) heart failure; I48.2 Chronic atrial fibrillation; M06.9 Rheumatoid arthritis, unspecified; E78.5 Hyperlipidemia, unspecified; E03.9 Hypothyroidism, unspecified; F32.9 Major depressive disorder, single episode, unspecified; K21.9 Gastro-esophageal reflux disease without esophagitis; Z87.891 Personal history of nicotine dependence; Z86.73 Personal history of transient ischemic attack (TIA), and cerebral infarction without residual deficits

== ENCOUNTER 2017-01-26 09:42 | Inpatient (IN) | payer MEDICARE, OTHER ==
[~2017-01-26] VITALS: Ht 177.8 cm; Wt 93.4 kg
[~2017-01-26 09:42] MED LIST changes: +ATROVENT HFA12.9 GM INH; +AUGMENTIN 875-11 TAB PO; +DOXYCYCLINE HY100 M2 PO; +FUROSEMIDE40 MG PO; +PREDNISONE20 MG PO
[2017-01-26 10:29] LABS: BASOPHILS 0.1 % (0-2); EOSINOPHILS 0.1 % (0-7); HEMATOCRIT 36.1 % (42.0-54.0); HEMOGLOBIN 11.9 g/dL (13.5-17.5); IMMATURE GRANULOCYTES 0.4 % (0-5); LYMPHOCYTES 7.7 % (15-50); MCH 26.7 pg (26.0-34.0); MCV 81.1 fL (80.0-100.0); MEAN PLATELET VOLUME 8.1 fL (7.4-10.4); MONOCYTES 5.7 % (2-11); PLATELET COUNT 201 10x3/uL (130-400); RBC 4.45 10x6/uL (4.20-6.10); RDW 16.5 % (11.5-14.5); WBC 15.6 10x3/uL (4.8-10.8)
[2017-01-26 10:44] LABS: ALBUMIN 3.2 g/dL (3.4-5.0); ANION GAP 6.9 mmol/L (8-16); BILIRUBIN - TOTAL 0.77 mg/dL (0.2-1.3); CARBON DIOXIDE 36.6 mmol/L (21.0-32.0); CREATININE - SERUM 1.1 mg/dL (0.6-1.3); POTASSIUM - SERUM 3.5 mmol/L (3.5-5.1); PROTEIN - SERUM 6.4 g/dL (6.4-8.2)
[2017-01-26 12:00] VITALS: BP 97/63
[2017-01-26] MEDS ORDERED: ANORO ELLIPTA1 EACH INH (13:08)
[2017-01-26] MEDS ORDERED: VENTOLIN HFA18 GM INH (13:09)
[2017-01-26 13:12] VITALS: BP 97/63; Ht 177.8 cm; Wt 93.4 kg
--- NOTE | 2017-01-26 13:32 | NUR ---
ADMISSION WORKUP COMPLETED. INTRODUCED MYSELF TO PT PRIMARY RN FOR TODAYS SHIFT. PT A&O SITTING UP IN BED WITH AT BEDSIDE. PT VERY FAMILAR WITH OUR FACILITY AND HAS HAD MANY LIKE ADMISSIONS. PT CURRENTLY NOT SOB BUT WAS ADMITTED WITH THAT. PT HAS A PRODUCTIVE GARGLY COUGH BUT STATES HE IS BARELY ABLE TO COUGH IT UP. RR NONLABORED WITH NC @3L IN PLACE LUNGS CTA WITH EXP. WHEEZES NOTED THROUGHOUT ALL LOBES. PT NEEDING TELEMETRY AND WE WILL APPLY IT, PT HAS NOTED A.FIB AND ON MEDICATIONS FOR IT. CL IN REACH, BED IN LOWEST, SIDE RAILS X2. WILL CPOC.
[2017-01-26 16:00] VITALS: BP 93/47
[2017-01-26 21:24] VITALS: BP 108/59
--- NOTE | 2017-01-26 23:44 | NUR ---
PATIENT IS RESTING COMFORTABLY. DENIES ANY PAIN. C/O SHORTNESS OF BREATH.PATIENT STATES THAT HE HAS NEVER HAD INSULIN AND DOES NOT WANT TO START NOW.
--- NOTE | 2017-01-26 23:48 | NUR ---
TELEMETRY SHOWS AFIB AT 80.
--- NOTE | 2017-01-27 00:16 | NUR ---
PATIENT IS SLEEPING COMFORTABLY. ROOM AIR, IV IN LEFT ARM IS PATENT CLEAN DRY AND INTACT. BED LOW, CALL LIGHT IN REACH.
[2017-01-27 01:40] VITALS: BP 106/65
--- NOTE | 2017-01-27 02:21 | NUR ---
RESTING COMFORTABLY. 4 LITERS VIA NASAL CANNULA. IV CLEAN DRY AND INTACT. NS AT 5ML/HR. TELEMETRY SHOWS A FIB 84.
[2017-01-27 04:00] VITALS: BP 91/51
--- NOTE | 2017-01-27 05:07 | NUR ---
PT RESTING IN BED WATCHING TV. PT IS ON 3L O2 NC. PT DENIES ANY NEEDS. NO S/S OF DISTRESS. BED LOW AND CALL LIGHT IN REACH. WILL CPOC
[2017-01-27 05:34] LABS: INR 1.85 (0.85-1.17); PROTIME 21.3 SECONDS (11.6-15.0)
[2017-01-27 05:41] LABS: BASOPHILS 0 % (0-2); EOSINOPHILS 0 % (0-7); HEMATOCRIT 33.8 % (42.0-54.0); HEMOGLOBIN 11.1 g/dL (13.5-17.5); IMMATURE GRANULOCYTES 0.4 % (0-5); LYMPHOCYTES 5.1 % (15-50); MCH 26.7 pg (26.0-34.0); MCHC 32.8 g/dL (31.0-37.0); MCV 81.3 fL (80.0-100.0); MEAN PLATELET VOLUME 8.6 fL (7.4-10.4); NEUTROPHILS 92.5 % (40-80); PLATELET COUNT 257 10x3/uL (130-400); RBC 4.16 10x6/uL (4.20-6.10); RDW 16.4 % (11.5-14.5); WBC 19.9 10x3/uL (4.8-10.8)
[2017-01-27 06:00] LABS: CALCIUM 8.4 mg/dL (8.5-10.1); CREATININE - SERUM 1.2 mg/dL (0.6-1.3)
[2017-01-27 08:00] VITALS: BP 92/46
[2017-01-27 08:53] LABS: CKMB 0.9 U/L (0.0-3.6); TROPONIN-I < 0.017 ng/mL (0.000-0.060)
--- NOTE | 2017-01-27 10:20 | NUR ---
TELEMETRY CAF. RESP UL ON 02 3L NC. IV PATENT. CALL LIGHT IN REACH. WILL CONT. PLAN OF CARE.
[2017-01-27 12:00] VITALS: BP 99/68
[2017-01-27 16:00] VITALS: BP 138/72
[2017-01-27 21:05] VITALS: BP 125/71
[2017-01-28 01:17] VITALS: BP 105/49
[2017-01-28 04:36] LABS: BASOPHILS 0 % (0-2); EOSINOPHILS 0 % (0-7); HEMATOCRIT 31.1 % (42.0-54.0); HEMOGLOBIN 10.2 g/dL (13.5-17.5); IMMATURE GRANULOCYTES 0.5 % (0-5); LYMPHOCYTES 4.4 % (15-50); MCH 26.8 pg (26.0-34.0); MCHC 32.8 g/dL (31.0-37.0); MCV 81.6 fL (80.0-100.0); MEAN PLATELET VOLUME 8.7 fL (7.4-10.4); MONOCYTES 3.8 % (2-11); NEUTROPHILS 91.3 % (40-80); PLATELET COUNT 231 10x3/uL (130-400); RBC 3.81 10x6/uL (4.20-6.10); RDW 16.8 % (11.5-14.5)
[2017-01-28 04:38] LABS: WBC 14.9 10x3/uL (4.8-10.8)
[2017-01-28 05:01] LABS: ANION GAP 8.3 mmol/L (8-16); CALCIUM 8.2 mg/dL (8.5-10.1); CARBON DIOXIDE 32.4 mmol/L (21.0-32.0); CREATININE - SERUM 1.1 mg/dL (0.6-1.3); MAGNESIUM - SERUM 1.8 mg/dL (1.8-2.4)
[2017-01-28 05:04] LABS: POTASSIUM - SERUM 3.7 mmol/L (3.5-5.1)
[2017-01-28 05:28] VITALS: BP 118/65
--- NOTE | 2017-01-28 07:30 | NUR ---
PT AWAKE IN BED WATCHING TV. DENIES DISTRESS AT THIS TIME. STATES THE LAST BREATHING TREATMENT FINALLY HELPED AND HE FELLS LIKE HE CAN BREATH BETTER NOW. IV TO LEFT AC SALINE LOCKED. TELEMENTRY INTACT RUNNING CAF. O2 AT 3 LITERS PER NC. PT IN ON OTHER UNIT AND PT IS WORRIED ABOUT HER AND WANTS TO SEE IF CAN BE MOVED CLOSER TO EACH OTHER, OR BRING HER OVER HERE, TOLD HIM WILL HAVE TO TALK TO HOUSE SUPERVISIOR. SR UP X 2, C/L IN REACH WILL MONITOR.
--- NOTE | 2017-01-28 07:45 | NUR ---
ROUNDING NOTE: PT IS A,A,OX3. PT IS ON 3L OXYGEN VIA NC. PT HAS NS RUNNING AT 75CC/HR TO LEFT AC. ON TELE, PT IS IN CONTROLLED AFIB WITH HR 87. PT'S POTASSIUM HAS BEEN LOW, WILL NEED TO GIVE MORE POTASSIUM PER ELECTROLYTE PROTOCOL. PT REPORTS FEELING VERY SOB, LUNG SOUNDS SHOW DIFFUSE WHEEZING AND POOR AIR MOVEMENT. RESP THERAPY CALLED TO GIVE UPDRAFT TREATMENT. O2 SAT 96%. WILL CONT TO MONITOR.
--- NOTE | 2017-01-28 07:47 | NUR ---
PT'S POTASSIUM IS IMPROVED THIS MORNING TO 3.7. PT'S IVF HAVE BEEN SALINE LOC'D DUE TO BNP OF 2785 AND INCREASED RESP DISTRESS THROUGHOUT THE NIGHT REQUIRING EARLY UPDRAFT TRETAMENTS SEVERAL TIMES WITH ONLY MINIMAL IMPROVEMENT. WILL CONT TO MONITOR.
[2017-01-28 08:02] VITALS: BP 120/70
--- NOTE | 2017-01-28 08:49 | NUR ---
UP SOB EATING BRK. RESP UL ON . CALL LIGHT IN REACH. WILL CONT. PLAN OF CARE.
[2017-01-28 12:33] VITALS: BP 119/89
[2017-01-28 16:26] VITALS: BP 127/66
--- NOTE | 2017-01-28 19:21 | NUR ---
INITIAL ROUNDS COMPLETED. PT DENIES ANY DISCOMFORT. AT BEDSIDE. WILL CONTINUE TO MONITOR.
--- NOTE | 2017-01-28 20:15 | NUR ---
ADMISSION ASSESSMENT COMPLETED. IV TO LAC SL. PT DECLINES IV FLUIDS. O2 3LNC. LUNGS DIMINISHED IN BASES BILAT. SOB WITH EXERTION. TRACE PEDAL EDEMA. PM FSBS 176. WILL CONTINUE TO MONITOR. SR UP X2, CALL LIGHT WITHIN REACH.
[2017-01-28 20:16] VITALS: BP 126/54
--- NOTE | 2017-01-28 21:16 | NUR ---
PM FSBS 176. 2 UNITS HUMALOG GIVEN SUB-Q TO UPPER R ARM. PM MEDS GIVEN. WILL CONTINUE TO MONITOR.
--- NOTE | 2017-01-28 23:46 | NUR ---
PT HAD 30 BEAT RUN OF PAT. BACK TO CAF. DENIES ANY DISCOMFORT. WILL CONTINUE TO MONITOR.
[2017-01-29] VITALS (7 sets, daily range): BP systolic 110–148; BP diastolic 50–79
--- NOTE | 2017-01-29 02:12 | NUR ---
PT AWAKE; DENIES ANY DISCOMFORT. WILL CONTINUE TO MONITOR.
[2017-01-29 04:54] LABS: BASOPHILS 0 % (0-2); EOSINOPHILS 0 % (0-7); HEMATOCRIT 30.6 % (42.0-54.0); IMMATURE GRANULOCYTES 0.6 % (0-5); LYMPHOCYTES 4.4 % (15-50); MCH 26.7 pg (26.0-34.0); MCHC 32.7 g/dL (31.0-37.0); MCV 81.6 fL (80.0-100.0); MEAN PLATELET VOLUME 8.2 fL (7.4-10.4); PLATELET COUNT 208 10x3/uL (130-400); RBC 3.75 10x6/uL (4.20-6.10); RDW 16.5 % (11.5-14.5); WBC 12.7 10x3/uL (4.8-10.8)
--- NOTE | 2017-01-29 05:01 | NUR ---
PT RESTING WITH EYES CLOSED. RESP EVEN AND REGULAR. SR UP X2, CALL LIGHT WITHIN REACH.
[2017-01-29 05:07] LABS: INR 2.26 (0.85-1.17)
[2017-01-29 05:14] LABS: ALBUMIN 2.8 g/dL (3.4-5.0); ALKALINE PHOSPHATASE 46 U/L (46-116); ALT (SGPT) 31 U/L (10-68); BILIRUBIN - TOTAL 0.41 mg/dL (0.2-1.3); CALC OSMOLALITY 267 mosm/kg (275-300); CALCIUM 8.5 mg/dL (8.5-10.1); CARBON DIOXIDE 35.7 mmol/L (21.0-32.0); CHLORIDE - SERUM 89 mmol/L (98-107); GLUCOSE 161 mg/dL (74-106); MAGNESIUM - SERUM 1.8 mg/dL (1.8-2.4); PHOSPHOROUS 2.7 mg/dL (2.5-4.9); PROTEIN - SERUM 6.1 g/dL (6.4-8.2); SODIUM 130 mmol/L (136-145); UREA NITROGEN 25 mg/dL (7-18); eGFR NON AFRICAN AMERICAN 78 mL/min (90-120)
[2017-01-29 05:15] LABS: POTASSIUM - SERUM 2.8 mmol/L (3.5-5.1)
--- NOTE | 2017-01-29 05:48 | NUR ---
K+ 2.8. KCL 20MEQ PO GIVEN PER ELECTOLYTE PROTOCOL. EXPLAINED TO PT WILL HAVE 2 MORE DOSES 2 HRS APART THEN RECHECK K+ 4 HRS AFTER LAST DOSE. PT STATED UNDERSTANDING.
--- NOTE | 2017-01-29 06:15 | NUR ---
VSS THROUGHOUT NIGHT. CAF PER CM. PT DENIED ANY DISCOMFORT. NEEDS MET; WILL CONTINUE TO MONITOR.
--- NOTE | 2017-01-29 07:32 | NUR ---
AM ROUNDS- PT SITTING UP TO SIDE OF BED, BEAM BUILDER AT BEDSIDE TO DO VITAL SIGNS. PT A/O X4, RESP EVEN AND UNLABORED ON 3L. LT AC SL, CAF 98 ON MONITOR. PT DENIES ANY NEEDS AT THIS TIME. INFORMED PT ABOUT SPUTUM CULTURE NEEDED PT HAS COUHG BUT IS NOT PRODUCING ANY SPUTUM AT THIS TIME. CALL LIGHT IN REACH, NAD NOTED, WILL CONTINUE PLAN OF CARE.
--- NOTE | 2017-01-29 08:26 | NUR ---
AM MEDS GIVEN AND 20MEQ OF K FOR LOW K OF 2.8. PT UP TO SIDE OF BED, EATING BREAKFAST, DENIES ANY NEEDS AT THIS TIME, CALL LIGHT IN REACH, NAD NOTED, WILL CONTINUE PLAN OF CARE.
--- NOTE | 2017-01-29 11:09 | NUR ---
BLOOD SUGAR OF 232, 4 UNTIS OF HUMALOG GIVEN PER S/S. IVPB OF LEVAQUIN HUNG AT THIS TIME. PT DENIES ANY NEEDS AT THIS TIME. CALL [facility] IN REACH, NAD NOTED.
--- NOTE | 2017-01-29 14:54 | NUR ---
VERBAL ORDER FROM DR. SANDY TO CANCEL RESP CULTURE.
--- NOTE | 2017-01-29 22:21 | NUR ---
INITIAL ROUNDS COMPLETEDA T 1915 HRS. PT DENIED ANY DISCOMFORT. ASSESSMENT COMPLETED AT 1940 HRS. VSS. CAF PER CM HR 98. O2 3LNC. LUNGS WITH INSPIRATORY WHEEZES TO UPPER LOBES, DIMINISHED IN LOWER LOBES BILAT. IV TO LAC SL. PM FSBS 240. 4 UNITS HUMALOG GIVEN SUB-Q PER S/S. PM K+ 3.5. 40 MEQ IN 180CC OF APPLE JUICE GIVEN PER ELECTROLYTE PROTOCOL. PM MEDS GIVEN. PT CURRENTLY WATCHING TV. WILL CONTINUE TO MONITOR. SR UP X, CALL LIGHT WITHIN REACH.
[2017-01-30 00:06] VITALS: BP 139/81
--- NOTE | 2017-01-30 00:18 | NUR ---
PT RESTING WITH EYES CLOSED. RESP EVEN AND REGULAR. SR UP X2, CALL LIGHT WITHIN REACH.
--- NOTE | 2017-01-30 02:28 | NUR ---
PT RESTING WITH EYES CLOSED. RESP EVEN AND REGULAR. SR UP X2, CALL LIGHT WITHIN REACH.
--- NOTE | 2017-01-30 04:15 | NUR ---
PT RESTING WITH EYES CLOSED. RESP EVEN AND REGULAR. SR UP X2, CALL LIGHT WITHIN REACH.
[2017-01-30 05:00] VITALS: BP 154/98
[2017-01-30 05:39] LABS: BASOPHILS 0 % (0-2); EOSINOPHILS 0 % (0-7); HEMATOCRIT 33.5 % (42.0-54.0); HEMOGLOBIN 10.7 g/dL (13.5-17.5); IMMATURE GRANULOCYTES 0.5 % (0-5); LYMPHOCYTES 5.7 % (15-50); MCH 26.5 pg (26.0-34.0); MCHC 31.9 g/dL (31.0-37.0); MCV 82.9 fL (80.0-100.0); MEAN PLATELET VOLUME 8.7 fL (7.4-10.4); MONOCYTES 5.4 % (2-11); NEUTROPHILS 88.4 % (40-80); PLATELET COUNT 244 10x3/uL (130-400); RBC 4.04 10x6/uL (4.20-6.10); RDW 16.7 % (11.5-14.5); WBC 9.6 10x3/uL (4.8-10.8)
[2017-01-30 05:49] LABS: ANION GAP 6.3 mmol/L (8-16); CALCIUM 8.8 mg/dL (8.5-10.1); CARBON DIOXIDE 36.6 mmol/L (21.0-32.0); CREATININE - SERUM 1.1 mg/dL (0.6-1.3); POTASSIUM - SERUM 3.9 mmol/L (3.5-5.1)
[2017-01-30 06:10] LABS: INR 2.27 (0.85-1.17); PROTIME 25.1 SECONDS (11.6-15.0)
--- NOTE | 2017-01-30 06:38 | NUR ---
VSS THROUGHOUT NIGHT. CAF PER CM. PT DENIED ANY DISCOMFORT. NEEDS MET; WILL CONTINUE TO MONITOR.
--- NOTE | 2017-01-30 07:16 | HP ---
PATIENT: TAWANNA FINNEGAN MEDICAL RECORD: [id number] ACCOUNT: [id number] LOCATION:[address] : 43 ADMISSION DATE: 01/26/17 HISTORY AND PHYSICAL EXAMINATION CHIEF COMPLAINT: Shortness of breath. HISTORY OF PRESENT ILLNESS: The patient is a 71-year-old gentleman with longstanding history of COPD. He had been in his normal state of health until this morning. He awakened having cough, congestion. He has also had increasing shortness of breath. The patient presented to the Emergency Room via ambulance where he was found to have pneumonia as well as hypoxia, it was felt that the patient warranted admission. PAST MEDICAL HISTORY: Significant that he has had COPD. He has had dependent edema. He has had gout, hypothyroidism, hypertension. He had a carotid endarterectomy on 12/10/2008. He had a cervical spine as well as lumbar laminectomy in 1981, carpal tunnel bilateral in 2004. He has had peripheral vascular disease, had a history of TIA, hyperlipidemia. FAMILY HISTORY: Brother of malignant tumor of the lung. Mother had arthritis. Father had heart disease. MEDICATIONS: Include allopurinol 300 mg 1 p.o. daily, doxazosin 2 mg 1 p.o. daily, finasteride 5 mg 1 p.o. daily, Lasix 40 mg 1 p.o. daily, hydrochlorothiazide 12.5 one p.o. daily, KCl 20 mEq 1 p.o. daily, levothyroxine 150 mcg once a day, aspirin 81 mg once a day, metoprolol tartrate 50 mg 1 p.o. b.i.d., Singulair 10 mg once a day, Mucinex 1200 mg p.o. b.i.d., omeprazole 20 mg once a day, pravastatin 40 mg once a day, Zoloft 50 mg once a day, Xopenex 4 times daily, and also recently placed on Anoro 1 puff every day. HABITS: The patient is a former smoker, 1 pack per day smoker, stopped in July of 2015. The patient does drink beer on a daily basis. SOCIAL HISTORY: The patient is retired. 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 He is . Father of 1. REVIEW OF SYSTEMS: CONSTITUTIONAL: He denies any headaches, seizures, or syncope. HEENT: Denies change in visual or auditory acuity. PULMONARY: He has had cough. He has had congestion. He has had no sputum production. CARDIOVASCULAR: He has had no chest pain, palpitation, PND, orthopnea. GASTROINTESTINAL: No chronic nausea, vomiting, melena, or hematochezia. GENITOURINARY: No urgency, frequency, or dysuria. ALLERGIES: THE PATIENT IS ALLERGIC TO HYTRIN. PHYSICAL EXAMINATION: VITAL SIGNS: In the Emergency Room, the patient's pulse was 103, his temperature was 98.3, his respirations were 24, blood pressure 129/59, and his O2 sat was 93% on 2 liters. HEENT: Head is normocephalic. No lesions. Ears: TMs clear. Eyes: Pupils equal, round and reactive to light. His extraocular movements are intact. His nasal cavity, oral cavity, oropharynx clear. HISTORY AND PHYSICAL [id number] TAWANNA FINNEGAN NECK: Supple. There is no adenopathy. HEART: Slightly tachycardic. ABDOMEN: Soft, bowel sounds are positive. LUNGS: He has decreased breath sounds in all taylor. EXTREMITIES: Lower extremities have trace pretibial edema. DIAGNOSTIC DATA: The patient had a chest x-ray. The chest x-ray showed borderline cardiomegaly, small bilateral pleural effusions cannot be excluded. He did have increased bibasilar densities, possible early pneumonia. LABORATORY DATA: His white count is 15.6, hemoglobin 11.9, hematocrit 36.1, and his platelets were 201. Sodium was low at 127, BUN was 14, creatinine of 1.1, potassium 3.5, chloride is 87, CO2 was 36.6, glucose 142. ProBNP is 2314. ASSESSMENT: Chronic obstructive pulmonary disease exacerbation, possible congestive heart failure, early pneumonia, hypertension. PLAN: The patient is admitted. He will be placed on appropriate antibiotics, updraft therapy, O2 supplementation. He will be gently diuresed. We will continue to follow. TRANSINT:[id number] Voice Confirmation ID: [id number] DOCUMENT ID: [id number] MARY YEE MD at 0716 CC: [id number] DICTATION DATE: 01/26/171754 PRINCIPAL SECRETARY: 01/26/17 [address] [place] [address]
--- NOTE | 2017-01-30 07:30 | NUR ---
ASSESSMENT COMPLETED. UP IN WIFES ROOM. ALERT AND ORIENTED.O2 AT 3 L/M PER NC. TELEMERTY SHOWS CAF AT 100. LEFT AC SL. DENIES AND NEEDS.
[2017-01-30 08:00] VITALS: BP 130/78
--- NOTE | 2017-01-30 09:17 | NUR ---
PATIENT HAD A BARIUM SWALLOW THIS A.M. WHILE TURNING OVER ON THE TABLE, HE GOT A SKIN TEAR ON HIS RIGHT ARM AT THE LATERAL ELBOW. SAÚL DIAZ RN WOUND CARE NURSE NOTIFIED AND SHE PUT A BANDAGE ON IT. LUCERO NICOLAS RN ALSO NOTIFIED.
--- NOTE | 2017-01-30 10:00 | NUR ---
RESTING QUIETLY SITTING IN CHAIR AWAKE AND ALERT NAD NOTED
[2017-01-30 12:00] VITALS: BP 166/97
--- NOTE | 2017-01-30 13:34 | NUR ---
Late entry: 0920 01/30/17 Notified by Ana Bear (Imaging) that pt had acquired a small skin tear to his right lateral elbow. Mepilex lite border applied to protect. Pt tolerated well with no c/o pain or discomfort. Wound care will monitor as needed.
--- NOTE | 2017-01-30 15:25 | NUR ---
LYING QUIETLY. DENIES ANYNEEDS. WILL MONITOR
[2017-01-30 17:21] VITALS: BP 151/61
--- NOTE | 2017-01-30 20:27 | NUR ---
PATIENT SITTING UP IN BED. OXYGEN VIA NASAL CANNULA AT 3 LITERS. IV ON LEFT FOREARM SL. DENIES ANY NEEDS AT THIS TIME, BED IN LOW POSITION CALL LIGHT IN REACH.
[2017-01-30 21:30] VITALS: BP 136/79
--- NOTE | 2017-01-30 23:05 | NUR ---
PATIENT REFUSED SLIDING SCALE INSULIN . BS WAS 157 AT 2200. DENIES ANY NEEDS AT THIS TIME. BED IN LOW POSITION, BED SIDE TABLE AND CALL LIGHT IN REACH.
--- NOTE | 2017-01-31 01:27 | NUR ---
PATIENT RESTING COMFORTABLY. REPORTS THAT HE HIT HIS ARM ON THE TABLE EARLIER IN THE DAY . HE HAS A SKIN TEAR AND THE BANDADE IS NOT STAYING ON. REWRAPPED WITH 4 BY 4 AND CLOTH TAPE.
[2017-01-31 02:05] VITALS: BP 137/77
[2017-01-31 04:16] LABS: BASOPHILS 0 % (0-2); EOSINOPHILS 0.1 % (0-7); HEMATOCRIT 33.1 % (42.0-54.0); HEMOGLOBIN 10.8 g/dL (13.5-17.5); LYMPHOCYTES 9.4 % (15-50); MCH 26.7 pg (26.0-34.0); MCHC 32.6 g/dL (31.0-37.0); MCV 81.9 fL (80.0-100.0); MEAN PLATELET VOLUME 8.3 fL (7.4-10.4); MONOCYTES 9.1 % (2-11); NEUTROPHILS 79.4 % (40-80); PLATELET COUNT 219 10x3/uL (130-400); RBC 4.04 10x6/uL (4.20-6.10); RDW 16.6 % (11.5-14.5); WBC 9.9 10x3/uL (4.8-10.8)
[2017-01-31 04:27] LABS: INR 2.65 (0.85-1.17); PROTIME 28.4 SECONDS (11.6-15.0)
[2017-01-31 04:46] LABS: CALC OSMOLALITY 274 mosm/kg (275-300); CALCIUM 8.4 mg/dL (8.5-10.1); CARBON DIOXIDE 38.8 mmol/L (21.0-32.0); CHLORIDE - SERUM 92 mmol/L (98-107); GLUCOSE 130 mg/dL (74-106); MAGNESIUM - SERUM 1.9 mg/dL (1.8-2.4); PRO BNP 2803 pg/mL (0-125); SODIUM 133 mmol/L (136-145); UREA NITROGEN 31 mg/dL (7-18); eGFR NON AFRICAN AMERICAN 78 mL/min (90-120)
[2017-01-31 06:13] LABS: IMMUNOGLOBULIN A 144 mg/dL (61-437); IMMUNOGLOBULIN G 562 mg/dL (700-1600)
--- NOTE | 2017-01-31 07:00 | NUR ---
RECEIVED REPORT. ASSUMED CARE OF PATIENT. PATIENT SITTING UP TO CHAIR AT BEDSIDE. MD HERE MAKING AM ROUNDS. PATIENT HAPPY TO GET TO GO HOME TODAY. CALL LIGHT WITHIN REACH. IV FLUIDS INFUSING ORDERED. NO DISTRESS.
[2017-01-31] MEDS ORDERED: DALIRESP500 MCG PO (07:01)
[2017-01-31] MEDS ORDERED: LEVAQUIN750 MG PO (07:02)
[2017-01-31] MEDS ORDERED: PROTONIX40 MG PO (07:02)
[2017-01-31] MEDS ORDERED: PREDNISONE10 MG (07:04)
[2017-01-31] MEDS ORDERED: KLOR-CON 1010 MEQ PO (07:08)
[2017-01-31 08:00] VITALS: BP 142/87
--- NOTE | 2017-01-31 09:56 | NUR ---
22 GAUGE IV REMOVED FROM LEFT FOREARM. PATIENT IS DISCHARGING TO HOME. CATHETER TIP INTACT. NO BLEEDING FROM SITE. 2X2 GAUZE APPLIED AND SECURED WITH TAPE. TOLERATED IV REMOVAL WELL. NO DISTRESS. TELEMETRY REMOVED.
--- NOTE | 2017-01-31 09:59 | NUR ---
Patient Name: TAWANNA FINNEGAN Admission Status: ER Accout number: [id number] Admission Date: 01-26-2017 : 1945 Admission Diagnosis: Attending: MARY YEE Current LOS: 5 Anticipated DC Date: 01-31-2017 Planned Disposition: Home Primary Insurance: MEDICARE A & B Discharge Planning Comments: * Is the patient Alert and Oriented? Yes 0 * How many steps to enter\exit or inside your home? 3 0 * PCP DR. YEE 0 * Pharmacy [facility] [address] 0 * Preadmission Environment Home with Family 0 * ADLs Independent 0 * Equipment Cane Nebulizer Oxygen 0 * Other Equipment HOME AND PORTABLE OXYGEN [facility] - MEDICAL EQUIPMENT PROVIDER 0 * List name and contact numbers for known caregivers / representatives who currently or will assist patient after discharge: MEL FINNEGAN, SPOUSE, 0 * Community resources currently utilized None 0 * Please name any agencies selected above. NONE 0 * Additional services required to return to the preadmission environment? No 0 * Can the patient safely return to the preadmission environment? Yes 0 * Has this patient been hospitalized within the prior 30 days at any hospital? No 0 CM MET WITH PT IN ROOM TO DISCUSS DISCHARGE PLANNING AND NEEDS. PT REPORTS LIVING AT HOME INDEPENDENTLY WITH SPOUSE. PT HAS CANE, NEBULIZER AND HOME / PORTABLE OXYGEN FROM [facility]. PT HAS NO OUTSIDE SERVICES ASSISTING IN THE HOME. CM DISCUSSED AVAILABILITY OF HOME HEALTH, REHAB SERVICES AND MEDICAL EQUIPMENT. PT WOULD LIKE ROLLING WALKER WITH WHEELS SEAT AND BRAKES REQUESTED BY HIS SPOUSE FOR ASSISTANCE WITH LONG DISTANCE AMBULATION. PT DENIES NEED FOR IT AT DISCHARGE, REQUESTED HOME DELIVERY. PT REPORTS HIS WILL PICK HIM UP TODAY FOR DISCHARGE HOME. IMPORTANT MESSAGE FROM MEDICARE PROVIDED AND EXPLAINED. CM CALLED AND SPOKE TO DR. YEE NURSE IN CLINIC, OBTAINED ORDER FOR WALKER FROM DR. YEE. CM CALLED [facility], , PROVIDED REFERRAL TO [place], REQUESTED HOME DELIVERY; [place] REPORTS HE WILL ARRANGE HOME DELIVERY WITH PT. CM FAXED REFERRAL TO [facility] AT [phone]. PT NOTIFIED. NO FURTHER NEEDS NOTED. Manufacturing Team Leader: Vitor Garcia
--- NOTE | 2017-01-31 11:34 | NUR ---
FSBS 121. NO INSULIN COVERAGE PROVIDED PER SLIDING SCALE. SITTING TO CHAIR AT BEDSIDE. NO DISTRESS.
--- NOTE | 2017-01-31 12:20 | NUR ---
DISCHARGE INSTRUCTIONS PROVIDED TO PATIENT AT 1220. PATIENT VERBLIZED UNDERSTANDING OF ALL INSTRUCTIONS PROVIDED. PATIENT HAD NO QUESTIONS FOR THIS BIOLOGY LABORATORY ASSISTANT. CALLED FOR WHEELCHAIR.
--- NOTE | 2017-01-31 12:24 | NUR ---
PATIENT LEFT UNIT VIA WHEELCHAIR. PATIENT LEFT UNIT WITH ALL PERSONAL BELONGINGS. NO DISTRESS UPON LEAVING UNIT.
--- NOTE | 2017-02-13 06:54 | DS ---
PATIENT:TAWANNA FINNEGAN :43 MEDICAL RECORD: [id number] DISCHARGE SUMMARY ADMISSION DATE: 01/26/17 DISCHARGE DATE: 01/31/17 DATE OF ADMISSION: 01/26/2017. DATE OF DISCHARGE: 01/31/2017. CONDITION ON DISCHARGE: Improved. ADMITTING DIAGNOSES: Chronic obstructive pulmonary disease exacerbation, possible congestive heart failure, pneumonia, and hypertension. DISCHARGE DIAGNOSES: Shortness of breath, pneumonia, acute chronic diastolic heart failure, chronic obstructive pulmonary disease exacerbation, hypothyroidism, hyperlipidemia, hypertension, arteriosclerotic heart disease, peripheral vascular disease, type 2 diabetes mellitus, anemia, hypokalemia, gastroesophageal reflux, care home use of cigarettes, history of transient ischemic attacks. HOSPITAL COURSE: This patient is a 71-year-old gentleman who presented with longstanding history of COPD, stated he had been in normal state of health until the morning of his admission. He developed cough, congestion, and increasing shortness of breath, presented to the Emergency Room where it was felt the patient needed to be admitted in the Emergency Room. PHYSICAL EXAMINATION: VITAL SIGNS: His pulse 103, respirations were 24, temperature is 98.3, his blood pressure is 129/59, and O2 sat is 93%. HEENT: Unremarkable. NECK: Supple. There is no adenopathy. HEART: Had a regular rate. No murmurs, gallops, or rubs. LUNGS: Decreased breath sounds in all taylor. ABDOMEN: Soft. Bowel sounds are positive. No organomegaly. LABORATORY DATA AND DIAGNOSTIC STUDIES: White count is elevated at 15.6, hemoglobin 11.9, hematocrit 36.1, platelets were 201. Sodium 127, BUN is 14, creatinine 1.1, potassium 3.5. ProBNP is elevated at 2314. The patient is admitted, started on updraft therapy as well as O2 supplementation, gentle diuresis. The patient had an echocardiogram. Echocardiogram revealed normal LV size and function with ejection fraction 60%, moderate mitral regurg, mild tricuspid regurg. The patient was seen in consultation by Dr. Murrell, student education specialist. The patient was placed on Augmentin 875 p.o. b.i.d., doxycycline 100 mg p.o. b.i.d. His chest x-ray showed mild interstitial lung prominence with consistency of history of pneumonia. The patient had a barium swallow to rule out any aspiration pneumonia. He did have a small hiatal hernia, moderate gastroesophageal reflux, findings suggestive of reflux esophagitis. On the morning of the , the patient was stable and was felt he could be discharged. White count was 9.9, hemoglobin 10.8, hematocrit 33.1, and platelets were 219. He had sodium of 133, potassium was 3, chloride 92, BUN was 31, creatinine 1, and glucose 130. The patient was discharged. DISCHARGE MEDICATIONS: He was placed on Daliresp 500 mg 1 p.o. every day, DISCHARGE SUMMARY REPORT [id number] TAWANNA FINNEGAN Protonix 40 mg 1 p.o. every day, allopurinol 300 mg 1 p.o. every day, Pravachol 40 mg p.o. at bedtime, Proscar 5 mg p.o. at bedtime, Synthroid 150 mcg once a day, guaifenesin 600 p.o. b.i.d., and warfarin 5 mg Monday, Monday, Monday, , and Monday. He is also on Pulmicort 0.25 gram/2 mL respule b.i.d., Cardura 2 mg once a day, Zoloft 50 mg once a day, Singulair 10 mg once a day, aspirin 81 mg once a day, warfarin 7.5 mg Monday and Monday, Lasix 40 mg daily, Anoro Ellipta 62.5/25 mcg once daily, Xopenex 0.63 mg/3 mL updraft q.6 hours p.r.n. shortness of breath, and potassium 10 mEq 1 p.o. every day. The patient was to be on a 2200 calorie ADA diet. O2 at 2 liters per minute. He was to follow up with me in 1 week. ACTIVITIES: Ad rikki. TRANSINT:[id number] Voice Confirmation ID: [id number] DOCUMENT ID: [id number] MARY YEE MD at 0654 CC: [id number] DICTATION DATE: 02/12/171112 BRIDAL SALES CONSULTANT: 02/12/17 1232 DIS IN 01/31/17 [facility] [address] [place] [address]
== END 2017-01-31 12:25 | disposition home or self-care (01) | DRG 177 ==
LOC: D.ER 09:42 → D.M2 11:29
PROVIDERS: Emergency Medicine; Family Medicine; Internal Medicine Pulmonary Disease; ADMIT Family Medicine
DX: J15.6 Pneumonia due to other Gram-negative bacteria (principal); I50.33 Acute on chronic diastolic (congestive) heart failure; J44.1 Chronic obstructive pulmonary disease with (acute) exacerbation; J44.0 Chronic obstructive pulmonary disease with (acute) lower respiratory infection; J98.11 Atelectasis; E87.1 Hypo-osmolality and hyponatremia; E03.9 Hypothyroidism, unspecified; E78.5 Hyperlipidemia, unspecified; I11.0 Hypertensive heart disease with heart failure; I25.10 Atherosclerotic heart disease of native coronary artery without angina pectoris; I73.9 Peripheral vascular disease, unspecified; E11.9 Type 2 diabetes mellitus without complications; N40.0 Benign prostatic hyperplasia without lower urinary tract symptoms; I27.20 Pulmonary hypertension, unspecified; R91.1 Solitary pulmonary nodule; I07.1 Rheumatic tricuspid insufficiency; E87.6 Hypokalemia; D64.9 Anemia, unspecified; K21.9 Gastro-esophageal reflux disease without esophagitis; Z86.73 Personal history of transient ischemic attack (TIA), and cerebral infarction without residual deficits; Z87.891 Personal history of nicotine dependence; Z79.01 Long term (current) use of anticoagulants

== ENCOUNTER 2017-03-08 22:19 | Emergency (ER) | payer MEDICARE, OTHER ==
[2017-01-26 13:12] VITALS: BMI 29.6
[~2017-03-08 22:19] MED LIST changes: +ANORO ELLIPTA1 EACH INH; +KLOR-CON 1010 MEQ PO; +PREDNISONE10 MG; +PROTONIX40 MG PO; +VENTOLIN HFA18 GM INH
[2017-03-08 22:53] LABS: BASOPHILS 0 % (0-2); EOSINOPHILS 0 % (0-7); HEMATOCRIT 29.9 % (42.0-54.0); HEMOGLOBIN 9.6 g/dL (13.5-17.5); IMMATURE GRANULOCYTES 1.8 % (0-5); MCHC 32.1 g/dL (31.0-37.0); MEAN PLATELET VOLUME 8.3 fL (7.4-10.4); MONOCYTES 7.4 % (2-11); NEUTROPHILS 77.8 % (40-80); RBC 3.56 10x6/uL (4.20-6.10); RDW 16.8 % (11.5-14.5); WBC 9.8 10x3/uL (4.8-10.8)
[2017-03-08 22:55] LABS: PLATELET COUNT 275 10x3/uL (130-400)
[2017-03-08 23:13] LABS: ALBUMIN 3.3 g/dL (3.4-5.0); ALKALINE PHOSPHATASE 63 U/L (46-116); ALT (SGPT) 21 U/L (10-68); BILIRUBIN - TOTAL 0.46 mg/dL (0.2-1.3); CALC OSMOLALITY 271 mosm/kg (275-300); CALCIUM 8.7 mg/dL (8.5-10.1); CARBON DIOXIDE 36.2 mmol/L (21.0-32.0); CHLORIDE - SERUM 94 mmol/L (98-107); CREATININE - SERUM 1.3 mg/dL (0.6-1.3); GLUCOSE 126 mg/dL (74-106); POTASSIUM - SERUM 3.8 mmol/L (3.5-5.1); PROTEIN - SERUM 6.6 g/dL (6.4-8.2); SODIUM 133 mmol/L (136-145); UREA NITROGEN 25 mg/dL (7-18); eGFR NON AFRICAN AMERICAN 58 mL/min (90-120)
[2017-03-08 23:19] LABS: INR 3.12 (0.85-1.17); PROTIME 31.4 SECONDS (11.6-15.0)
[2017-03-08 23:20] LABS: CREATINE KINASE 41 UL (21-232); MAGNESIUM - SERUM 1.5 mg/dL (1.8-2.4); PRO BNP 3762 pg/mL (0-125); TROPONIN-I < 0.017 ng/mL (0.000-0.060)
== END 2017-03-09 01:10 | disposition home or self-care (01) ==
LOC: D.ER 22:19
PROVIDERS: Emergency Medicine
DX: I50.9 Heart failure, unspecified (principal); R06.00 Dyspnea, unspecified; J44.9 Chronic obstructive pulmonary disease, unspecified; I48.91 Unspecified atrial fibrillation; I45.10 Unspecified right bundle-branch block; I10 Essential (primary) hypertension

== ENCOUNTER 2017-04-16 09:55 | Inpatient (IN) | payer MEDICARE, OTHER ==
[~2017-04-16] VITALS: Ht 177.8 cm; Wt 90.9 kg
--- NOTE | ~2017-04-16 | HP ---
PATIENT: TAWANNA FINNEGAN MEDICAL RECORD: [id number] ACCOUNT: [id number] LOCATION:[address] : 43 ADMISSION DATE: 04/16/17 HISTORY AND PHYSICAL EXAMINATION HISTORY OF PRESENT ILLNESS: A 71-year-old male presented to the Emergency Room with shortness of breath for the past 2 days, fever, chills. PAST MEDICAL HISTORY: Significant for advanced COPD, supplemental oxygen dependent, also history of chronic AFib, Coumadin therapy, hypertension, and gout. CURRENT MEDICATIONS: Listed as allopurinol, finasteride, pravastatin, doxazosin, furosemide, metoprolol, Singulair, Coumadin, sertraline, Mucinex, and aspirin inhalers. ALLERGIES: Reported as HYTRIN. REVIEW OF SYSTEMS: GENERAL: No acute change in weight. Decreased appetite with acute illness. HEENT: No cephalgia, visual changes, tinnitus, epistaxis, or dysphagia. CARDIOVASCULAR: Denies chest pain. History of chronic AFib, dealt well with current medications. PULMONARY: Denies hemoptysis, denies night sweats. Admits cough, chills. GASTROINTESTINAL: Denies hematemesis, hematochezia, or melena. GENITOURINARY: Denies dysuria. MUSCULOSKELETAL: No acute changes. Does admit myalgias. PHYSICAL EXAMINATION: VITAL SIGNS: Temp 98, blood pressures 131/92, heart rate 106, respirations 28, O2 sats 98% on 3 liters. GENERAL: Alert, oriented, presently comfortable. No acute distress. HEENT: Head is normocephalic, atraumatic. Eyes: Pupils are equally round and reactive to light and accommodation. Extraocular muscles are intact. Conjunctiva was not injected. Ears: Canals patent. TMs are intact. Nose: Nares patent without drainage. Throat: No erythema, no exudates. NECK: Supple. No lymphadenopathy, no JVD. HEART: Irregularly irregular. No S3, S4. No rub. LUNGS: Scattered rhonchi, improved with cough. ABDOMEN: Soft, nontender. Bowel sounds all 4 quadrants. EXTREMITIES: Present times 4. NEUROLOGIC: Cranial nerves II through XII intact. No focal deficits. SKIN: Warm and dry. LABORATORY DATA AND DIAGNOSTIC STUDIES: CBC: White count 6.2, hemoglobin 10.4, hematocrit 33.4, platelets 222. PT is 17.9, INR 1.54. D-dimer is mildly elevated at 0.67. Sodium 136, potassium is 3.4, chloride 98, bicarbonate 32, BUN 20, creatinine 1.2, and glucose is 140. CK is 22, CK-MB 0.7. Troponin is less than 0.017. ProBNP is 2519. Influenza B is positive. Chest x-rays showed right basilar atelectasis. ASSESSMENT AND PLAN: 1. Chronic obstructive pulmonary disease exacerbation, nebulizers, supplemental oxygen, supportive care, empiric antibiotics with possible right basilar pneumonia. HISTORY AND PHYSICAL [id number] TAWANNA FINNEGAN 2. Influenza B. Tamiflu 75 mg b.i.d. 5 days. 3. Chronic atrial fibrillation. Continue Coumadin therapy, monitor INR. 4. Mildly elevated D-dimer. Continue Coumadin therapy. With multiple comorbidities, we will not order CTA at this time, the patient is already on Coumadin. It is near baseline on its reading. If symptoms change, we would recommend consideration for CTA. Supportive care. Sputum cultures if able to obtain. Discussed with nurse. TRANSINT:[id number] Voice Confirmation ID: [id number] DOCUMENT ID: [id number] TAWANNA HOLLIDAY DO at 0809 CC: [id number] DICTATION DATE: 04/16/17 1513 PAINTING CONTRACTOR: 04/16/17 1620 ADM IN [facility] [address] [place] [address]
[2017-04-16 10:42] LABS: BASOPHILS 0.2 % (0-2); EOSINOPHILS 0.2 % (0-7); HEMATOCRIT 33.4 % (42.0-54.0); HEMOGLOBIN 10.4 g/dL (13.5-17.5); LYMPHOCYTES 19.4 % (15-50); MCH 26.1 pg (26.0-34.0); MCHC 31.1 g/dL (31.0-37.0); MCV 83.9 fL (80.0-100.0); MEAN PLATELET VOLUME 8.4 fL (7.4-10.4); NEUTROPHILS 74.2 % (40-80); PLATELET COUNT 222 10x3/uL (130-400); RBC 3.98 10x6/uL (4.20-6.10); RDW 16.4 % (11.5-14.5); WBC 6.2 10x3/uL (4.8-10.8)
[2017-04-16 10:54] LABS: APTT 34.4 SECONDS (22.8-39.4); INR 1.54 (0.85-1.17); PROTIME 17.9 SECONDS (11.6-15.0)
[2017-04-16 10:55] LABS: ALBUMIN 3.2 g/dL (3.4-5.0); ALKALINE PHOSPHATASE 67 U/L (46-116); ALT (SGPT) 18 U/L (10-68); CALC OSMOLALITY 276 mosm/kg (275-300); CALCIUM 8.6 mg/dL (8.5-10.1); CHLORIDE - SERUM 98 mmol/L (98-107); CREATININE - SERUM 1.2 mg/dL (0.6-1.3); D-DIMER-QUANTITATIVE 0.67 ug/mLFEU (0.20-0.54); GLUCOSE 140 mg/dL (74-106); POTASSIUM - SERUM 3.4 mmol/L (3.5-5.1); PROTEIN - SERUM 7.1 g/dL (6.4-8.2); SODIUM 136 mmol/L (136-145); UREA NITROGEN 20 mg/dL (7-18); eGFR NON AFRICAN AMERICAN 63 mL/min (90-120)
[2017-04-16 11:08] LABS: CKMB 0.7 U/L (0.0-3.6); CREATINE KINASE 22 UL (21-232); PRO BNP 2519 pg/mL (0-125); TROPONIN-I < 0.017 ng/mL (0.000-0.060)
[2017-04-16 14:54] VITALS: BP 117/68; BMI 28.7
[2017-04-16 21:45] VITALS: BP 131/77
[2017-04-17 01:03] VITALS: BP 149/91
[2017-04-17 04:24] LABS: BASOPHILS 0 % (0-2); EOSINOPHILS 0 % (0-7); HEMATOCRIT 32.2 % (42.0-54.0); LYMPHOCYTES 22.2 % (15-50); MCH 25.6 pg (26.0-34.0); MCHC 31.1 g/dL (31.0-37.0); MCV 82.6 fL (80.0-100.0); MEAN PLATELET VOLUME 8.5 fL (7.4-10.4); MONOCYTES 7.5 % (2-11); NEUTROPHILS 69.3 % (40-80); PLATELET COUNT 215 10x3/uL (130-400); RDW 16.2 % (11.5-14.5)
[2017-04-17 04:27] LABS: WBC 3.1 10x3/uL (4.8-10.8)
[2017-04-17 04:38] LABS: INR 1.49 (0.85-1.17); PROTIME 17.5 SECONDS (11.6-15.0)
[2017-04-17 04:48] LABS: CALCIUM 8.2 mg/dL (8.5-10.1); CARBON DIOXIDE 32.3 mmol/L (21.0-32.0); CREATININE - SERUM 1.2 mg/dL (0.6-1.3)
[2017-04-17 04:54] VITALS: BP 100/72
[2017-04-17 05:25] LABS: ANION GAP 11.1 mmol/L (8-16); POTASSIUM - SERUM 3.4 mmol/L (3.5-5.1)
[2017-04-17 07:39] VITALS: BP 89/55
[2017-04-17 14:37] VITALS: Ht 177.8 cm; Wt 90.9 kg
[2017-04-17 15:59] VITALS: BP 124/71
[2017-04-17 19:00] VITALS: BP 99/55
[2017-04-18] VITALS: BP 131/81
[2017-04-18 04:00] VITALS: BP 125/79
[2017-04-18 04:36] LABS: BASOPHILS 0 % (0-2); EOSINOPHILS 0 % (0-7); HEMATOCRIT 31.8 % (42.0-54.0); HEMOGLOBIN 9.9 g/dL (13.5-17.5); IMMATURE GRANULOCYTES 0.2 % (0-5); LYMPHOCYTES 6.1 % (15-50); MCH 25.9 pg (26.0-34.0); MCHC 31.1 g/dL (31.0-37.0); MCV 83.2 fL (80.0-100.0); MONOCYTES 4.5 % (2-11); NEUTROPHILS 89.2 % (40-80); PLATELET COUNT 227 10x3/uL (130-400); RBC 3.82 10x6/uL (4.20-6.10)
[2017-04-18 04:47] LABS: WBC 8.5 10x3/uL (4.8-10.8)
[2017-04-18 04:51] LABS: ANION GAP 6.6 mmol/L (8-16); CALCIUM 8.1 mg/dL (8.5-10.1); CARBON DIOXIDE 35.6 mmol/L (21.0-32.0); CREATININE - SERUM 1.3 mg/dL (0.6-1.3); POTASSIUM - SERUM 3.2 mmol/L (3.5-5.1)
[2017-04-18 08:06] VITALS: BP 112/63
[2017-04-18 12:39] VITALS: BP 114/66
[2017-04-18 15:55] VITALS: BP 110/57
[2017-04-18 20:00] VITALS: BP 134/74
[2017-04-19] VITALS: BP 138/78
[2017-04-19 04:00] VITALS: BP 141/92
[2017-04-19 05:04] LABS: BASOPHILS 0.1 % (0-2); EOSINOPHILS 0 % (0-7); HEMATOCRIT 32.5 % (42.0-54.0); HEMOGLOBIN 10.1 g/dL (13.5-17.5); IMMATURE GRANULOCYTES 0.3 % (0-5); LYMPHOCYTES 6.7 % (15-50); MCH 25.8 pg (26.0-34.0); MCHC 31.1 g/dL (31.0-37.0); MCV 83.1 fL (80.0-100.0); MONOCYTES 3.2 % (2-11); NEUTROPHILS 89.7 % (40-80); PLATELET COUNT 249 10x3/uL (130-400); RBC 3.91 10x6/uL (4.20-6.10); RDW 16.1 % (11.5-14.5); WBC 8.7 10x3/uL (4.8-10.8)
[2017-04-19 05:25] LABS: INR 2.78 (0.85-1.17); PROTIME 28.6 SECONDS (11.6-15.0)
[2017-04-19 05:40] LABS: ANION GAP 11.7 mmol/L (8-16); CALCIUM 8.5 mg/dL (8.5-10.1); CARBON DIOXIDE 33.2 mmol/L (21.0-32.0); CREATININE - SERUM 1.3 mg/dL (0.6-1.3)
[2017-04-19 05:43] LABS: POTASSIUM - SERUM 3.9 mmol/L (3.5-5.1)
[2017-04-19] MEDS ORDERED: LEVAQUIN750 MG PO (07:17)
[2017-04-19] MEDS ORDERED: TAMIFLU75 MG PO (07:17)
[2017-04-19] MEDS ORDERED: PREDNISONE10 MG PO (07:22)
[2017-04-19 11:01] VITALS: BP 147/92
== END 2017-04-19 12:21 | disposition home or self-care (01) | DRG 190 ==
LOC: D.ER 09:55 → D.M2 11:59
PROVIDERS: Family Medicine
DX: J44.0 Chronic obstructive pulmonary disease with (acute) lower respiratory infection (principal); J10.00 Influenza due to other identified influenza virus with unspecified type of pneumonia; J98.11 Atelectasis; J44.1 Chronic obstructive pulmonary disease with (acute) exacerbation; Z99.81 Dependence on supplemental oxygen; I48.2 Chronic atrial fibrillation; Z79.01 Long term (current) use of anticoagulants; I10 Essential (primary) hypertension

== ENCOUNTER 2017-05-08 09:38 | Emergency (ER) | payer MEDICARE, OTHER ==
[2017-04-17 14:37] VITALS: BMI 28.6
[~2017-05-08 09:38] MED LIST changes: +TAMIFLU75 MG PO
[2017-05-08 10:51] LABS: BASOPHILS 0.1 % (0-2); EOSINOPHILS 0.6 % (0-7); HEMATOCRIT 32.3 % (42.0-54.0); HEMOGLOBIN 9.8 g/dL (13.5-17.5); IMMATURE GRANULOCYTES 0.3 % (0-5); LYMPHOCYTES 10.2 % (15-50); MCH 25.9 pg (26.0-34.0); MCHC 30.3 g/dL (31.0-37.0); MCV 85.2 fL (80.0-100.0); MEAN PLATELET VOLUME 8.8 fL (7.4-10.4); MONOCYTES 7.5 % (2-11); NEUTROPHILS 81.3 % (40-80); RBC 3.79 10x6/uL (4.20-6.10); RDW 17.7 % (11.5-14.5); WBC 13.6 10x3/uL (4.8-10.8)
[2017-05-08 10:53] LABS: PLATELET COUNT 170 10x3/uL (130-400)
[2017-05-08 11:18] LABS: ALBUMIN 3.3 g/dL (3.4-5.0); BILIRUBIN - TOTAL 0.6 mg/dL (0.2-1.3); CALCIUM 8.2 mg/dL (8.5-10.1); CARBON DIOXIDE 35.1 mmol/L (21.0-32.0); CREATININE - SERUM 1.6 mg/dL (0.6-1.3); POTASSIUM - SERUM 4.1 mmol/L (3.5-5.1); PROTEIN - SERUM 6.2 g/dL (6.4-8.2)
== END 2017-05-08 14:45 | disposition home or self-care (01) ==
LOC: D.ER 09:38
PROVIDERS: Physician Assistant
DX: S92.322A Displaced fracture of second metatarsal bone, left foot, initial encounter for closed fracture (principal); S92.352A Displaced fracture of fifth metatarsal bone, left foot, initial encounter for closed fracture; X58.XXXA Exposure to other specified factors, initial encounter; Y93.89 Activity, other specified; Y92.89 Other specified places as the place of occurrence of the external cause; J44.9 Chronic obstructive pulmonary disease, unspecified; I48.2 Chronic atrial fibrillation; Z79.01 Long term (current) use of anticoagulants; D64.9 Anemia, unspecified; I12.9 Hypertensive chronic kidney disease with stage 1 through stage 4 chronic kidney disease, or unspecified chronic kidney disease; N18.9 Chronic kidney disease, unspecified

== ENCOUNTER 2017-05-08 18:00 | Inpatient (IN) | payer MEDICARE, OTHER ==
[~2017-05-08] VITALS: Ht 177.8 cm; Wt 92.5 kg
--- NOTE | ~2017-05-08 | EC ---
PATIENT:TAWANNA FINNEGAN DATE OF SERVICE: 05/08/17 SEX: M MEDICAL RECORD: [id number] DATE OF : 43 LOCATION:[facility] D230 AGE OF PATIENT: 72 ADMISSION DATE: 05/08/17 REFERRING PHYSICIAN: INTERPRETING PHYSICIAN: CHI NDIAYE MD ECHOCARDIOGRAM REPORT ECHO CHARGES 4 ECHO COMPLETE CLINICAL DIAGNOSIS: RESP.ARREST/A-FIB ECHOCARDIOGRAPHIC MEASUREMENTS (adult normal given) AC root (d.<3.7cm) 3.4 cm LV Septum d (<1.2 cm> 1.1 cm Valve Excursion 1.0 cm LV Septum (systole) 1.8 cm Left Atria (s.<4.0cm> 3.1 cm LVPW d(<1.2cm) 1.1 cm RV (d.<2.3cm) 2.5 cm LVPW (sytole) 1.6 cm LV diastole(<5.6CM) 4.1 cm MV E-F(>70mm/sec) cm LV systole 2.2 cm LVOT Diameter 1.8 cm MV exc.(>10mm) cm Est.ejection fraction (50-75%) % Pericardial Effusion N DOPPLER: LVIT cm/sec A cm/sec E 152 cm/sec LA cm/sec RVSP 39.0 mmHg LVOT 101 cm/sec AOP1/2T m/s Asc. Ao 175 cm/sec RVOT 47.0 cm/sec RA cm/sec PA 93.0 cm/sec AV Gradient Peak 12.3 mmHg AV Mean 6.0 mmHg AV Area 1.9 cm MV Gradient Peak 12.0 mmHg MV Mean 3.5 mmHg MV Area cm COMMENTS: House Officer: Tyrone WEINEROE Ice Cream Man: Arnulfo Ndiaye TAPE# PACS DATE OF SERVICE: 05/13/2017 PROCEDURE: Transthoracic echocardiogram. FINDINGS: 1. Left ventricle shows mild left ventricular hypertrophy with preserved LV systolic function. No obvious regional wall motion abnormalities. Ejection fraction is 55% to 60%. 2. The mitral valve shows mitral annular calcification with at least moderate mitral regurgitation. ECHOCARDIOGRAM REPORT [id number] TAWANNA FINNEGAN 3. The left atrium is normal size, normal function. 4. Aortic valve is thickened. It is not well visualized. The velocities were not severely elevated, but there is some suggestion of at least mild aortic stenosis or sclerosis and there is mild aortic insufficiency. 5. The pulmonic valve is normal. 6. The tricuspid valve has moderate tricuspid regurgitation, RVSP of 40 mmHg. 7. The right ventricle is normal size, normal function. 8. The right atrium is normal size, normal function. CONCLUSION: The patient has atrial fibrillation with preserved LV systolic function, mitral annular calcification, and sclerotic aortic valve with mild elevations of right-sided pressures. TRANSINT:[id number] Voice Confirmation ID: [id number] DOCUMENT ID: [id number] CHI NDIAYE MD at 0942 CC: [id number] DICTATION DATE: 05/13/17 1436 KILN CAR REPAIRER: 05/13/17 1455 ADM IN [facility] [address] [place] [address]
--- NOTE | ~2017-05-08 | OP ---
PATIENT NAME: EDWAR FINNEGAN MEDICAL RECORD: [id number] :43 LOCATION:.[facility] D.2308 ADMISSION DATE:05/08/17 SURGEON: EDWAR HERNANDEZ MD DATE OF OPERATION: 05/13/2017 PREOPERATIVE DIAGNOSES: 1. Hypotension. 2. Chronic obstructive pulmonary disease. 3. Status post respiratory arrest. 4. Requires mechanical ventilation. POSTOPERATIVE DIAGNOSES: 1. Hypotension. 2. Chronic obstructive pulmonary disease. 3. Status post respiratory arrest. 4. Requires mechanical ventilation. PROCEDURE: Insertion of right supraclavicular triple lumen central venous catheter. SURGEON: Edwar Hernandez MD BELT MOLDER: None. BLOOD LOSS: Minimal. ANESTHESIA: Local. COMPLICATIONS: None. The risks, possible complications, and alternatives to the procedure were explained to the patient's family. A consent form was signed. DESCRIPTION OF PROCEDURE: The procedure was performed in the patient's ICU bed. He was positioned in the Trendelenburg position. The right neck and right upper chest were sterilely prepped and draped. A local anesthetic was used to infiltrate the skin and subcutaneous tissues at the base of the right neck. I then percutaneously accessed the right subclavian vein utilizing a supraclavicular technique. A guidewire passed easily. A small skin genaro was accomplished. A vessel dilator was used to dilate a subcutaneous tract. A 16-cm triple lumen central venous catheter was inserted to the hub. It was sutured in place times 3. All lumens flushed easily and aspirated dark, nonpulsatile blood. A stat portable chest x-ray is pending. TRANSINT:[id number] Voice Confirmation ID: [id number] DOCUMENT ID: [id number] OPERATIVE REPORT [id number] EDWAR FINNEGAN ROBERT MD at 1019 CC: [id number] DICTATION DATE: 05/13/17 1853 USER EXPERIENCE TEAM LEAD: 05/13/17 194 ADM IN [place] [id number] [place] [address]
--- NOTE | ~2017-05-08 | CN ---
PATIENT NAME:TAAWNNA ARIZA MEDICAL RECORD: [id number] : 43 LOCATION:[facility] D.2103 ADMIT DATE: 05/08/17 ACCOUNT: [id number] CONSULTING PHYSICIAN: SHELTON REDDY MD REFERRING PHYSICIAN: MARY YEE MD DATE OF CONSULTATION: 05/09/2017 CONSULT REQUESTING PHYSICIAN: Dr. Supa Ruiz. REASON FOR CONSULTATION: COPD. HISTORY OF PRESENT ILLNESS: Mr. Ariza is a 71-year-old gentleman, very well known to us, who has COPD and chronic hypoxic respiratory failure. According to the patient, he does not have any recent respiratory tract infection. He coughs without much sputum production. No fever or chills. No night sweats. His breathing is at baseline. He twisted his foot and got some fracture, and admitted through the ER. REVIEW OF SYSTEMS: Mainly in the history of present illness. PAST MEDICAL HISTORY: 1. Chronic hypoxic respiratory failure. 2. Chronic obstructive pulmonary disease of severe degree. 3. Gastroesophageal reflux disease. 4. History of transient ischemic attack. 5. History of pulmonary nodule since 2012. 6. Backache. PAST SURGICAL HISTORY: 1. He has a back surgery. 2. Elbow and neck surgery. ALLERGIES: HE IS ALLERGIC TO TERAZOSIN. PRESENT MEDICATIONS: Albuterol-ipratropium nebulizer, methylprednisolone IV. His other medication is reviewed. PERSONAL AND SOCIAL HISTORY: The patient is an ex-smoker. He is a nondrinker. FAMILY HISTORY: Noncontributory. PHYSICAL EXAMINATION: GENERAL: The patient is now lying comfortably. He is not in acute distress. VITAL SIGNS: The blood pressure is 168/75, pulse is 99, respirations 16, temperature 98.2, SPO2 98% on 3 liters nasal cannula. HEENT: Conjunctivae pink, sclerae nonicteric. NECK: Supple. No JVD. CHEST: Excursion is minimal on both sides. There is no wheeze, no rales. HEART: Rhythm regular, normal sound, no murmur. ABDOMEN: Soft. Bowel sounds present. No hepatosplenomegaly. RECTAL: Deferred. EXTREMITIES: No cyanosis, no clubbing, no pedal edema. The left foot is in the splint. CENTRAL NERVOUS SYSTEM: The patient is awake and alert. There are no obvious cranial nerve abnormality. The gait was not tested. CONSULT REPORT [id number] TAWANNA ARIZA CHEST RADIOGRAPH: Not available. LABORATORY DATA: CBC; WBC 10.6, hemoglobin 9.1, hematocrit 29.6, the platelet count 172. Chemistry; sodium 137, potassium 3.7, BUN is 27, creatinine is 2.1. RECOMMENDATION: 1. Continue albuterol-ipratropium nebulizer. I will stop the Anoro, start on Brovana-budesonide nebulizer. 2. Taper methylprednisolone IV. 3. Continue supplemental oxygen. 4. Check chest radiograph, follow the labs. Dr. Ruiz, thank you for involving me in the care of Mr. Ariza. TRANSINT:[id number] Voice Confirmation ID: [id number] DOCUMENT ID: [id number] SHELTON REDDY MD at 1340 CC: SUPA RUIZ DO [id number] DICTATION DATE: 05/09/[address] ORDER TAKER: 05/09/17 1741 DIS IN 05/23/17 [place] [id number] [place] [address]
[2017-05-08 18:48] LABS: HEMATOCRIT 29.6 % (42.0-54.0); HEMOGLOBIN 9.1 g/dL (13.5-17.5); LYMPHOCYTES 8.1 % (15-50); MCH 25.6 pg (26.0-34.0); MCHC 30.7 g/dL (31.0-37.0); MCV 83.4 fL (80.0-100.0); MEAN PLATELET VOLUME 8.8 fL (7.4-10.4); NEUTROPHILS 80.1 % (40-80); PLATELET COUNT 172 10x3/uL (130-400); RBC 3.55 10x6/uL (4.20-6.10); RDW 17.1 % (11.5-14.5); WBC 10.6 10x3/uL (4.8-10.8)
[2017-05-08 19:04] LABS: ALBUMIN 2.9 g/dL (3.4-5.0); ANION GAP 13.6 mmol/L (8-16); BILIRUBIN - TOTAL 0.72 mg/dL (0.2-1.3); CALCIUM 7.9 mg/dL (8.5-10.1); CARBON DIOXIDE 29.1 mmol/L (21.0-32.0); POTASSIUM - SERUM 3.7 mmol/L (3.5-5.1); PROTEIN - SERUM 6.5 g/dL (6.4-8.2)
[2017-05-08 19:07] LABS: CREATININE - SERUM 2.1 mg/dL (0.6-1.3)
[2017-05-08 19:20] LABS: APTT 64.9 SECONDS (22.8-39.4)
[2017-05-08 19:21] LABS: D-DIMER-QUANTITATIVE 3.05 ug/mLFEU (0.20-0.54)
[2017-05-08 19:38] LABS: INR 5.9 (0.85-1.17); PROTIME 51.8 SECONDS (11.6-15.0)
[2017-05-08 21:52] VITALS: BP 105/67
[2017-05-09] VITALS (7 sets, daily range): BP systolic 88–168; BP diastolic 54–84; BMI 29.9
[2017-05-09 06:35] LABS: APPEARANCE CLEAR (CLEAR); BILIRUBIN NEGATIVE (NEGATIVE); COLOR DK YELLOW (YELLOW); GLUCOSE NEGATIVE (NEGATIVE); KETONE NEGATIVE (NEGATIVE); NITRITE NEGATIVE (NEGATIVE); PROTEIN TRACE mg/dL (NEGATIVE); SPECIFIC GRAVITY 1.015 (1.005-1.020); UROBILINOGEN NORMAL (NORMAL)
[2017-05-09 06:36] LABS: BACTERIA MODERATE /hpf (NONE SEEN); EPITHELIAL CELLS 0-5 /hpf (0-5); GRANULAR CAST OCC /lpf (NONE SEEN); MUCUS <1+ /lpf (NONE SEEN); RED CELLS - URINE 0-5 /hpf (0-5); WHITE CELLS - URINE 0-5 /hpf (0-5)
[2017-05-10 00:56] VITALS: BP 124/86
[2017-05-10 04:36] VITALS: BP 144/94
[2017-05-10 04:36] LABS: BASOPHILS 0 % (0-2); EOSINOPHILS 0 % (0-7); HEMATOCRIT 25.6 % (42.0-54.0); HEMOGLOBIN 7.9 g/dL (13.5-17.5); IMMATURE GRANULOCYTES 0.3 % (0-5); LYMPHOCYTES 6.5 % (15-50); MCH 25.6 pg (26.0-34.0); MCHC 30.9 g/dL (31.0-37.0); MCV 83.1 fL (80.0-100.0); MEAN PLATELET VOLUME 9.3 fL (7.4-10.4); MONOCYTES 3.9 % (2-11); NEUTROPHILS 89.3 % (40-80); PLATELET COUNT 153 10x3/uL (130-400); RBC 3.08 10x6/uL (4.20-6.10); RDW 17.5 % (11.5-14.5)
[2017-05-10 04:45] LABS: WBC 6.7 10x3/uL (4.8-10.8)
[2017-05-10 04:51] LABS: INR 4.45 (0.85-1.17); PROTIME 41.5 SECONDS (11.6-15.0)
[2017-05-10 04:58] LABS: ALBUMIN 2.6 g/dL (3.4-5.0); ANION GAP 11.6 mmol/L (8-16); BILIRUBIN - TOTAL 0.54 mg/dL (0.2-1.3); CALCIUM 7.8 mg/dL (8.5-10.1); MAGNESIUM - SERUM 1.6 mg/dL (1.8-2.4); PHOSPHOROUS 2.8 mg/dL (2.5-4.9); POTASSIUM - SERUM 3.6 mmol/L (3.5-5.1); PROTEIN - SERUM 6.1 g/dL (6.4-8.2)
[2017-05-10 05:01] LABS: CREATININE - SERUM 1.4 mg/dL (0.6-1.3)
[2017-05-10 08:21] VITALS: BP 127/71
[2017-05-10 16:31] VITALS: BP 140/87
[2017-05-10 21:09] VITALS: BP 144/91
[2017-05-11 00:08] VITALS: BP 166/98
[2017-05-11 04:47] LABS: BASOPHILS 0 % (0-2); EOSINOPHILS 0 % (0-7); HEMATOCRIT 28.8 % (42.0-54.0); IMMATURE GRANULOCYTES 0.4 % (0-5); LYMPHOCYTES 2.7 % (15-50); MCH 26.5 pg (26.0-34.0); MCHC 31.3 g/dL (31.0-37.0); MCV 84.7 fL (80.0-100.0); MEAN PLATELET VOLUME 9.9 fL (7.4-10.4); MONOCYTES 5.2 % (2-11); NEUTROPHILS 91.7 % (40-80); PLATELET COUNT 171 10x3/uL (130-400); RDW 17.2 % (11.5-14.5)
[2017-05-11 04:51] LABS: WBC 9.3 10x3/uL (4.8-10.8)
[2017-05-11 04:54] VITALS: BP 136/89
[2017-05-11 05:09] LABS: ALBUMIN 2.6 g/dL (3.4-5.0); ANION GAP 12.5 mmol/L (8-16); BILIRUBIN - TOTAL 0.45 mg/dL (0.2-1.3); CALCIUM 8.5 mg/dL (8.5-10.1); CARBON DIOXIDE 28.4 mmol/L (21.0-32.0); CREATININE - SERUM 1.2 mg/dL (0.6-1.3); POTASSIUM - SERUM 3.9 mmol/L (3.5-5.1); PROTEIN - SERUM 6.3 g/dL (6.4-8.2)
[2017-05-11 05:29] LABS: PROTIME 30.4 SECONDS (11.6-15.0)
[2017-05-11 06:39] LABS: HELICOBACTER PYLORI IGG POSITIVE (NEGATIVE)
[2017-05-11 09:51] VITALS: BP 149/97
[2017-05-11 12:37] VITALS: BP 120/73
[2017-05-11 15:22] VITALS: BP 113/71
[2017-05-11 21:43] VITALS: BP 153/78
[2017-05-12] VITALS (21 sets, daily range): BP systolic 63–168; BP diastolic 37–120
[2017-05-12 05:22] LABS: BASOPHILS 0 % (0-2); EOSINOPHILS 0 % (0-7); HEMATOCRIT 30.5 % (42.0-54.0); HEMOGLOBIN 9.3 g/dL (13.5-17.5); IMMATURE GRANULOCYTES 0.6 % (0-5); MCH 26.2 pg (26.0-34.0); MCHC 30.5 g/dL (31.0-37.0); MCV 85.9 fL (80.0-100.0); MEAN PLATELET VOLUME 9.1 fL (7.4-10.4); MONOCYTES 7.3 % (2-11); NEUTROPHILS 85.1 % (40-80); PLATELET COUNT 159 10x3/uL (130-400); RBC 3.55 10x6/uL (4.20-6.10); RDW 17.3 % (11.5-14.5)
[2017-05-12 05:49] LABS: PROTIME 25.1 SECONDS (11.6-15.0)
[2017-05-12 05:50] LABS: INR 2.36 (0.85-1.17)
[2017-05-12 06:07] LABS: ANION GAP 8.9 mmol/L (8-16); CALCIUM 8.6 mg/dL (8.5-10.1); CARBON DIOXIDE 33.3 mmol/L (21.0-32.0); CREATININE - SERUM 1.2 mg/dL (0.6-1.3); POTASSIUM - SERUM 4.2 mmol/L (3.5-5.1)
[2017-05-12 20:48] LABS: HEMATOCRIT 33.2 % (42.0-54.0); HEMOGLOBIN 9.9 g/dL (13.5-17.5); MCH 26.1 pg (26.0-34.0); MCHC 29.8 g/dL (31.0-37.0); MCV 87.6 fL (80.0-100.0); MEAN PLATELET VOLUME 9.1 fL (7.4-10.4); RBC 3.79 10x6/uL (4.20-6.10); RDW 17.3 % (11.5-14.5); WBC 8.2 10x3/uL (4.8-10.8)
[2017-05-12 20:55] LABS: APPEARANCE CLEAR (CLEAR); BILIRUBIN NEGATIVE (NEGATIVE); COLOR YELLOW (YELLOW); GLUCOSE NEGATIVE (NEGATIVE); KETONE NEGATIVE (NEGATIVE); NITRITE NEGATIVE (NEGATIVE); PROTEIN TRACE mg/dL (NEGATIVE); SPECIFIC GRAVITY 1.015 (1.005-1.020); UROBILINOGEN NORMAL (NORMAL)
[2017-05-12 20:56] LABS: INR 2.06 (0.85-1.17); PROTIME 22.6 SECONDS (11.6-15.0)
[2017-05-12 21:56] LABS: CKMB 1.4 U/L (0.0-3.6); CREATINE KINASE 93 UL (21-232); TROPONIN-I < 0.017 ng/mL (0.000-0.060)
[2017-05-13] VITALS (28 sets, daily range): BP systolic 105–134; BP diastolic 67–97; BMI 29.8
[2017-05-13 01:09] LABS: HEMATOCRIT 30.9 % (42.0-54.0); HEMOGLOBIN 9.4 g/dL (13.5-17.5); MCHC 30.4 g/dL (31.0-37.0); MEAN PLATELET VOLUME 9.7 fL (7.4-10.4); RBC 3.61 10x6/uL (4.20-6.10); RDW 17.3 % (11.5-14.5); WBC 8.8 10x3/uL (4.8-10.8)
[2017-05-13 01:17] LABS: MCV 85.6 fL (80.0-100.0)
[2017-05-13 01:29] LABS: CREATINE KINASE 65 UL (21-232); TROPONIN-I 0.018 ng/mL (0.000-0.060)
[2017-05-13 01:54] LABS: CKMB 1.3 U/L (0.0-3.6)
[2017-05-13 04:30] LABS: BASOPHILS 0 % (0-2); EOSINOPHILS 0 % (0-7); HEMATOCRIT 29.1 % (42.0-54.0); HEMOGLOBIN 8.9 g/dL (13.5-17.5); IMMATURE GRANULOCYTES 1.4 % (0-5); LYMPHOCYTES 7.9 % (15-50); MCH 25.8 pg (26.0-34.0); MCHC 30.6 g/dL (31.0-37.0); MCV 84.3 fL (80.0-100.0); MEAN PLATELET VOLUME 9.4 fL (7.4-10.4); MONOCYTES 2.3 % (2-11); NEUTROPHILS 88.4 % (40-80); PLATELET COUNT 178 10x3/uL (130-400); RBC 3.45 10x6/uL (4.20-6.10); RDW 17.4 % (11.5-14.5); WBC 6.6 10x3/uL (4.8-10.8)
[2017-05-13 04:34] LABS: INR 1.87 (0.85-1.17); PROTIME 20.9 SECONDS (11.6-15.0)
[2017-05-13 04:55] LABS: CKMB 1.2 U/L (0.0-3.6); CREATINE KINASE 42 UL (21-232); TROPONIN-I < 0.017 ng/mL (0.000-0.060)
[2017-05-13 15:53] LABS: HEMATOCRIT 28.7 % (42.0-54.0)
[2017-05-14] VITALS (24 sets, daily range): BP systolic 108–142; BP diastolic 69–92; Ht 177.8 cm; Wt 92.5 kg
[2017-05-14 00:40] LABS: HEMATOCRIT 27.6 % (42.0-54.0); HEMOGLOBIN 8.7 g/dL (13.5-17.5); MCH 25.9 pg (26.0-34.0); MCHC 31.5 g/dL (31.0-37.0); MCV 82.1 fL (80.0-100.0); MEAN PLATELET VOLUME 8.9 fL (7.4-10.4); RBC 3.36 10x6/uL (4.20-6.10); RDW 17.8 % (11.5-14.5); WBC 6.4 10x3/uL (4.8-10.8)
[2017-05-14 04:23] LABS: BASOPHILS 0 % (0-2); EOSINOPHILS 0 % (0-7); HEMATOCRIT 27.7 % (42.0-54.0); HEMOGLOBIN 8.7 g/dL (13.5-17.5); IMMATURE GRANULOCYTES 2.1 % (0-5); LYMPHOCYTES 4.6 % (15-50); MCH 25.8 pg (26.0-34.0); MCHC 31.4 g/dL (31.0-37.0); MCV 82.2 fL (80.0-100.0); MEAN PLATELET VOLUME 9.3 fL (7.4-10.4); MONOCYTES 4.1 % (2-11); NEUTROPHILS 89.2 % (40-80); PLATELET COUNT 185 10x3/uL (130-400); RBC 3.37 10x6/uL (4.20-6.10); RDW 17.8 % (11.5-14.5); WBC 7.1 10x3/uL (4.8-10.8)
[2017-05-14 04:43] LABS: INR 1.9 (0.85-1.17); PROTIME 21.2 SECONDS (11.6-15.0)
[2017-05-14 04:53] LABS: ALBUMIN 2.3 g/dL (3.4-5.0); ANION GAP 13.3 mmol/L (8-16); BILIRUBIN - TOTAL 0.59 mg/dL (0.2-1.3); CALCIUM 8.1 mg/dL (8.5-10.1); CARBON DIOXIDE 29.9 mmol/L (21.0-32.0); CREATININE - SERUM 1.5 mg/dL (0.6-1.3); MAGNESIUM - SERUM 1.6 mg/dL (1.8-2.4); PROTEIN - SERUM 5.4 g/dL (6.4-8.2)
[2017-05-14 04:58] LABS: POTASSIUM - SERUM 3.2 mmol/L (3.5-5.1)
[2017-05-15] VITALS (24 sets, daily range): BP systolic 111–142; BP diastolic 57–89
[2017-05-15 03:49] LABS: BASOPHILS 0 % (0-2); EOSINOPHILS 0 % (0-7); HEMATOCRIT 30.1 % (42.0-54.0); HEMOGLOBIN 9.3 g/dL (13.5-17.5); IMMATURE GRANULOCYTES 3.5 % (0-5); MCH 25.7 pg (26.0-34.0); MCHC 30.9 g/dL (31.0-37.0); MCV 83.1 fL (80.0-100.0); MEAN PLATELET VOLUME 9.6 fL (7.4-10.4); MONOCYTES 3.9 % (2-11); NEUTROPHILS 89.6 % (40-80); PLATELET COUNT 206 10x3/uL (130-400); RBC 3.62 10x6/uL (4.20-6.10); RDW 17.8 % (11.5-14.5)
[2017-05-15 03:50] LABS: WBC 10.3 10x3/uL (4.8-10.8)
[2017-05-15 03:59] LABS: INR 1.79 (0.85-1.17); PROTIME 20.2 SECONDS (11.6-15.0)
[2017-05-15 04:02] LABS: ANION GAP 12.4 mmol/L (8-16); CALCIUM 8.3 mg/dL (8.5-10.1); CARBON DIOXIDE 31.3 mmol/L (21.0-32.0); CREATININE - SERUM 1.5 mg/dL (0.6-1.3)
[2017-05-15 04:15] LABS: POTASSIUM - SERUM 3.7 mmol/L (3.5-5.1)
[2017-05-16] VITALS (24 sets, daily range): BP systolic 103–150; BP diastolic 61–92
[2017-05-16 05:49] LABS: BASOPHILS 0.1 % (0-2); EOSINOPHILS 0 % (0-7); HEMATOCRIT 31.8 % (42.0-54.0); HEMOGLOBIN 9.8 g/dL (13.5-17.5); IMMATURE GRANULOCYTES 6.4 % (0-5); LYMPHOCYTES 3.5 % (15-50); MCH 25.9 pg (26.0-34.0); MCHC 30.8 g/dL (31.0-37.0); MCV 84.1 fL (80.0-100.0); MEAN PLATELET VOLUME 9.4 fL (7.4-10.4); MONOCYTES 5.6 % (2-11); NEUTROPHILS 84.4 % (40-80); PLATELET COUNT 222 10x3/uL (130-400); RBC 3.78 10x6/uL (4.20-6.10); RDW 18.2 % (11.5-14.5); WBC 11.3 10x3/uL (4.8-10.8)
[2017-05-16 06:04] LABS: INR 1.47 (0.85-1.17); PROTIME 17.4 SECONDS (11.6-15.0)
[2017-05-16 06:32] LABS: ANION GAP 13.6 mmol/L (8-16); CALCIUM 7.8 mg/dL (8.5-10.1); CARBON DIOXIDE 34.5 mmol/L (21.0-32.0); CREATININE - SERUM 1.3 mg/dL (0.6-1.3); MAGNESIUM - SERUM 2.2 mg/dL (1.8-2.4); PHOSPHOROUS 3.8 mg/dL (2.5-4.9)
[2017-05-16 06:33] LABS: POTASSIUM - SERUM 3.1 mmol/L (3.5-5.1)
[2017-05-17] VITALS (24 sets, daily range): BP systolic 91–165; BP diastolic 60–103
[2017-05-17 03:30] LABS: BASOPHILS 0.2 % (0-2); EOSINOPHILS 0 % (0-7); HEMATOCRIT 33.7 % (42.0-54.0); HEMOGLOBIN 10.6 g/dL (13.5-17.5); IMMATURE GRANULOCYTES 10.7 % (0-5); LYMPHOCYTES 5.6 % (15-50); MCH 26.2 pg (26.0-34.0); MCHC 31.5 g/dL (31.0-37.0); MCV 83.2 fL (80.0-100.0); MEAN PLATELET VOLUME 9.2 fL (7.4-10.4); MONOCYTES 4.9 % (2-11); NEUTROPHILS 78.6 % (40-80); PLATELET COUNT 219 10x3/uL (130-400); RBC 4.05 10x6/uL (4.20-6.10); RDW 17.7 % (11.5-14.5); WBC 12.1 10x3/uL (4.8-10.8)
[2017-05-17 03:41] LABS: ANION GAP 9.5 mmol/L (8-16); CALCIUM 8.5 mg/dL (8.5-10.1); CARBON DIOXIDE 37.2 mmol/L (21.0-32.0); CREATININE - SERUM 1.3 mg/dL (0.6-1.3); MAGNESIUM - SERUM 2.2 mg/dL (1.8-2.4); POTASSIUM - SERUM 3.7 mmol/L (3.5-5.1)
[2017-05-17 03:46] LABS: INR 1.44 (0.85-1.17)
[2017-05-18] VITALS (24 sets, daily range): BP systolic 85–146; BP diastolic 54–100
[2017-05-18 06:15] LABS: BASOPHILS 0.2 % (0-2); EOSINOPHILS 0 % (0-7); HEMOGLOBIN 11.4 g/dL (13.5-17.5); IMMATURE GRANULOCYTES 10.5 % (0-5); LYMPHOCYTES 8.8 % (15-50); MCH 26.1 pg (26.0-34.0); MCHC 31.7 g/dL (31.0-37.0); MCV 82.6 fL (80.0-100.0); MEAN PLATELET VOLUME 8.5 fL (7.4-10.4); MONOCYTES 5.5 % (2-11); PLATELET COUNT 203 10x3/uL (130-400); RBC 4.36 10x6/uL (4.20-6.10); RDW 17.2 % (11.5-14.5); WBC 12.8 10x3/uL (4.8-10.8)
[2017-05-18 06:25] LABS: INR 1.41 (0.85-1.17); PROTIME 16.8 SECONDS (11.6-15.0)
[2017-05-18 06:42] LABS: ANION GAP 9.1 mmol/L (8-16); CALCIUM 8.8 mg/dL (8.5-10.1); CARBON DIOXIDE 37.9 mmol/L (21.0-32.0); CREATININE - SERUM 1.3 mg/dL (0.6-1.3); MAGNESIUM - SERUM 2.1 mg/dL (1.8-2.4)
[2017-05-18 17:12] LABS: AFB SPECIMEN PROCESSING Concentration (())
[2017-05-19] VITALS (16 sets, daily range): BP systolic 94–150; BP diastolic 75–95
[2017-05-19 00:29] LABS: HEMATOCRIT 37.6 % (42.0-54.0); HEMOGLOBIN 11.6 g/dL (13.5-17.5); MCH 25.8 pg (26.0-34.0); MCHC 30.9 g/dL (31.0-37.0); MCV 83.6 fL (80.0-100.0); RBC 4.5 10x6/uL (4.20-6.10); RDW 17.3 % (11.5-14.5); WBC 14.1 10x3/uL (4.8-10.8)
[2017-05-19 04:59] LABS: BASOPHILS 0.1 % (0-2); EOSINOPHILS 0 % (0-7); HEMATOCRIT 36.5 % (42.0-54.0); HEMOGLOBIN 11.2 g/dL (13.5-17.5); IMMATURE GRANULOCYTES 11.2 % (0-5); LYMPHOCYTES 6.2 % (15-50); MCH 25.7 pg (26.0-34.0); MCHC 30.7 g/dL (31.0-37.0); MCV 83.9 fL (80.0-100.0); MEAN PLATELET VOLUME 9.1 fL (7.4-10.4); MONOCYTES 6.3 % (2-11); NEUTROPHILS 76.2 % (40-80); PLATELET COUNT 250 10x3/uL (130-400); RBC 4.35 10x6/uL (4.20-6.10); RDW 17.2 % (11.5-14.5); WBC 14.1 10x3/uL (4.8-10.8)
[2017-05-19 05:19] LABS: ANION GAP 9.6 mmol/L (8-16); CALCIUM 8.7 mg/dL (8.5-10.1); CREATININE - SERUM 1.3 mg/dL (0.6-1.3); POTASSIUM - SERUM 3.6 mmol/L (3.5-5.1)
[2017-05-19 05:29] LABS: INR 1.8 (0.85-1.17); PROTIME 20.3 SECONDS (11.6-15.0)
[2017-05-19 10:19] LABS: FUNGUS STAIN Final report (())
[2017-05-20 00:18] VITALS: BP 134/74
[2017-05-20 05:48] VITALS: BP 132/91
[2017-05-20 07:17] LABS: BASOPHILS 0.1 % (0-2); EOSINOPHILS 0.3 % (0-7); HEMATOCRIT 35.6 % (42.0-54.0); HEMOGLOBIN 10.9 g/dL (13.5-17.5); IMMATURE GRANULOCYTES 9.5 % (0-5); LYMPHOCYTES 7.3 % (15-50); MCH 25.6 pg (26.0-34.0); MCHC 30.6 g/dL (31.0-37.0); MCV 83.8 fL (80.0-100.0); MEAN PLATELET VOLUME 9.5 fL (7.4-10.4); MONOCYTES 8.3 % (2-11); NEUTROPHILS 74.5 % (40-80); PLATELET COUNT 264 10x3/uL (130-400); RBC 4.25 10x6/uL (4.20-6.10); RDW 17.1 % (11.5-14.5); WBC 16.5 10x3/uL (4.8-10.8)
[2017-05-20 07:28] LABS: CALCIUM 8.7 mg/dL (8.5-10.1); CARBON DIOXIDE 32.8 mmol/L (21.0-32.0); CREATININE - SERUM 1.1 mg/dL (0.6-1.3); INR 1.91 (0.85-1.17); PROTIME 21.3 SECONDS (11.6-15.0)
[2017-05-20 07:46] LABS: POTASSIUM - SERUM 2.8 mmol/L (3.5-5.1)
[2017-05-20 09:08] VITALS: BP 117/86
[2017-05-20 11:52] VITALS: BP 111/79
[2017-05-20 16:32] VITALS: BP 146/97
[2017-05-20 20:00] VITALS: BP 142/88
[2017-05-21 04:00] VITALS: BP 131/91
[2017-05-21 06:26] LABS: BASOPHILS 0.1 % (0-2); EOSINOPHILS 0 % (0-7); HEMATOCRIT 34.7 % (42.0-54.0); HEMOGLOBIN 10.6 g/dL (13.5-17.5); IMMATURE GRANULOCYTES 7.2 % (0-5); LYMPHOCYTES 4.5 % (15-50); MCH 25.7 pg (26.0-34.0); MCHC 30.5 g/dL (31.0-37.0); MCV 84.2 fL (80.0-100.0); NEUTROPHILS 84.2 % (40-80); PLATELET COUNT 281 10x3/uL (130-400); RBC 4.12 10x6/uL (4.20-6.10); RDW 17.2 % (11.5-14.5); WBC 18.3 10x3/uL (4.8-10.8)
[2017-05-21 06:34] LABS: INR 2.06 (0.85-1.17); PROTIME 22.6 SECONDS (11.6-15.0)
[2017-05-21 06:36] LABS: ANION GAP 12.1 mmol/L (8-16); CALCIUM 8.5 mg/dL (8.5-10.1); CARBON DIOXIDE 28.6 mmol/L (21.0-32.0); CREATININE - SERUM 1.2 mg/dL (0.6-1.3); POTASSIUM - SERUM 3.7 mmol/L (3.5-5.1)
[2017-05-21 13:10] VITALS: BP 138/73
[2017-05-21 15:55] VITALS: BP 126/78
[2017-05-21 20:15] VITALS: BP 141/96
[2017-05-22 01:33] VITALS: BP 142/93
[2017-05-22 04:18] LABS: BASOPHILS 0.1 % (0-2); EOSINOPHILS 0 % (0-7); HEMATOCRIT 33.2 % (42.0-54.0); HEMOGLOBIN 10.1 g/dL (13.5-17.5); MCH 25.5 pg (26.0-34.0); MCHC 30.4 g/dL (31.0-37.0); MCV 83.8 fL (80.0-100.0); MEAN PLATELET VOLUME 8.7 fL (7.4-10.4); MONOCYTES 3.5 % (2-11); NEUTROPHILS 83.4 % (40-80); PLATELET COUNT 249 10x3/uL (130-400); RBC 3.96 10x6/uL (4.20-6.10); RDW 17.2 % (11.5-14.5); WBC 13.8 10x3/uL (4.8-10.8)
[2017-05-22 04:26] LABS: INR 2.11 (0.85-1.17)
[2017-05-22 04:27] LABS: CALC OSMOLALITY 287 mosm/kg (275-300); CALCIUM 8.4 mg/dL (8.5-10.1); CARBON DIOXIDE 31.1 mmol/L (21.0-32.0); CHLORIDE - SERUM 106 mmol/L (98-107); GLUCOSE 148 mg/dL (74-106); POTASSIUM - SERUM 3.6 mmol/L (3.5-5.1); SODIUM 140 mmol/L (136-145); UREA NITROGEN 30 mg/dL (7-18); eGFR NON AFRICAN AMERICAN 78 mL/min (90-120)
[2017-05-22 05:53] VITALS: BP 152/104
[2017-05-22 08:07] VITALS: BP 161/99
[2017-05-22 11:28] VITALS: BP 110/66
[2017-05-22 15:22] VITALS: BP 136/78
[2017-05-22 19:00] VITALS: BP 149/82
[2017-05-23] VITALS: BP 177/104
[2017-05-23 04:00] VITALS: BP 145/94
[2017-05-23 05:30] LABS: BASOPHILS 0.1 % (0-2); EOSINOPHILS 0.2 % (0-7); HEMATOCRIT 32.2 % (42.0-54.0); HEMOGLOBIN 9.9 g/dL (13.5-17.5); IMMATURE GRANULOCYTES 6.2 % (0-5); LYMPHOCYTES 11.1 % (15-50); MCH 25.7 pg (26.0-34.0); MCHC 30.7 g/dL (31.0-37.0); MCV 83.6 fL (80.0-100.0); MEAN PLATELET VOLUME 8.7 fL (7.4-10.4); MONOCYTES 8.5 % (2-11); NEUTROPHILS 73.9 % (40-80); PLATELET COUNT 253 10x3/uL (130-400); RBC 3.85 10x6/uL (4.20-6.10); RDW 17.8 % (11.5-14.5); WBC 11.4 10x3/uL (4.8-10.8)
[2017-05-23 05:50] LABS: CALCIUM 7.9 mg/dL (8.5-10.1); CHLORIDE - SERUM 108 mmol/L (98-107); CREATININE - SERUM 0.9 mg/dL (0.6-1.3); SODIUM 145 mmol/L (136-145); UREA NITROGEN 29 mg/dL (7-18); eGFR NON AFRICAN AMERICAN 88 mL/min (90-120)
[2017-05-23 05:59] LABS: CALC OSMOLALITY 293 mosm/kg (275-300); GLUCOSE 88 mg/dL (74-106)
[2017-05-23 08:02] VITALS: BP 122/83
[2017-05-23] MEDS ORDERED: PREDNISONE20 MG PO ×3 (11:12→11:17)
[2017-05-23 11:34] VITALS: BP 122/78
[2017-05-24 14:24] LABS: FUNGUS CULTURE RESULT 1 Candida albicans (()); FUNGUS CULTURE RESULT 2 Candida tropicalis (())
[2017-06-14 07:32] LABS: FUNGUS MYCOLOGY CULTURE Final report (())
[2017-07-12 14:48] LABS: ACID FAST CULTURE Negative (()); ACID FAST SMEAR Negative (())
== END 2017-05-23 15:37 | DRG 207 ==
LOC: D.ER 18:00 → D.ICU 18:52 → D.MS 18:52 → D.M2 18:52 → D.ICU 05-12 19:40 → D.M2 05-19 22:40
PROVIDERS: Family Medicine; Internal Medicine Gastroenterology; Internal Medicine Pulmonary Disease; Physician Assistant
PROC: 5A1955Z Respiratory Ventilation, Greater than 96 Consecutive Hours (ICD-10-PCS; principal; 2017-05-12)
PROC: 0BH17EZ Insertion of Endotracheal Airway into Trachea, Via Natural or Artificial Opening (ICD-10-PCS; 2017-05-12)
PROC: 05H333Z Insertion of Infusion Device into Right Innominate Vein, Percutaneous Approach (ICD-10-PCS; 2017-05-13)
PROC: 0BJ08ZZ Inspection of Tracheobronchial Tree, Via Natural or Artificial Opening Endoscopic (ICD-10-PCS; 2017-05-17)
DX: J44.1 Chronic obstructive pulmonary disease with (acute) exacerbation (principal); J96.00 Acute respiratory failure, unspecified whether with hypoxia or hypercapnia; G93.41 Metabolic encephalopathy; J18.9 Pneumonia, unspecified organism; N17.9 Acute kidney failure, unspecified; J96.11 Chronic respiratory failure with hypoxia; K92.2 Gastrointestinal hemorrhage, unspecified; J98.11 Atelectasis; S92.322A Displaced fracture of second metatarsal bone, left foot, initial encounter for closed fracture; S92.352A Displaced fracture of fifth metatarsal bone, left foot, initial encounter for closed fracture; T45.511A Poisoning by anticoagulants, accidental (unintentional), initial encounter; W01.0XXA Fall on same level from slipping, tripping and stumbling without subsequent striking against object, initial encounter; I10 Essential (primary) hypertension; I48.91 Unspecified atrial fibrillation; D64.9 Anemia, unspecified; E86.0 Dehydration; I50.814 Right heart failure due to left heart failure; J44.0 Chronic obstructive pulmonary disease with (acute) lower respiratory infection

== ENCOUNTER 2017-05-23 14:23 | Inpatient (IN) | payer MEDICARE, OTHER ==
[~2017-05-23] VITALS: Ht 177.8 cm; Wt 81.6 kg
--- NOTE | ~2017-05-23 | DS ---
PATIENT:TAWANNA FINNEGAN :43 MEDICAL RECORD: [id number] DISCHARGE SUMMARY ADMISSION DATE: 05/23/17 DISCHARGE DATE: 06/02/17 This is a discharge dated 06/02/2017 from the inpatient rehabilitation. PRIMARY DIAGNOSIS: Decreased functional ability and ability to provide activities of daily living secondary to chronic obstructive pulmonary disease myopathy. SECONDARY DIAGNOSES: 1. Chronic obstructive pulmonary disease exacerbation. 2. Atrial fibrillation. 3. Tachycardia. 4. Bradycardia. 5. History of transient ischemic attacks. 6. Status post respiratory arrest. 7. Lower extremity edema. 8. Coronary artery disease. 9. Gastroesophageal reflux disease. 10. Left foot fracture. 11. Chronic hypoxic respiratory failure. 12. Hypokalemia. 13. Hypothyroidism. 14. Hypertension. 15. Hyperlipidemia. CONSULTS THIS HOSPITALIZATION: Cardiology with Dr. Esquivel. PROCEDURES THIS HOSPITALIZATION: Echocardiogram on 05/23/17 with an EF of 65%, RVSP of 41 with left ventricular hypertrophy. HOSPITAL COURSE: Full H&P is located elsewhere on the chart on this 72-year-old male who was admitted to inpatient rehab for physical therapy and occupational therapy to improve gait, transfer skills, bed mobility, and activities of daily living to a modified independent level. He was evaluated by PT and OT and their plans of care were followed. He required fdc care for observation and assessment and medication administration. He remained on nebulized and inhaled medications for respiratory support. He had supplemental oxygen to keep sats greater than 90%. Electrolytes were managed by protocol. He was on telemetry throughout his hospital stay. He was continued on appropriate home medications. Cardiology was consulted for some bradycardia and some tachycardia. He was seen by Dr. Esquivel. Medications were adjusted. He had lower extremity edema. Echocardiogram was done with findings as listed above. He was on diuretics. He was cooperative with therapies, progressing towards goals. Case management was involved for discharge planning. He was considered stable for discharge on 06/02/2017. DISCHARGE MEDICATIONS: As per discharge medication reconciliation. DISCHARGE DISPOSITION: The patient is discharged home. He will continue his current diet and level of activity. We will have home health, continued PT and OT and will follow up with primary care and specialist as directed. At least 30 minutes was spent in this discharge activity. DISCHARGE SUMMARY REPORT [id number] TAWANNA FINNEGAN TRANSINT:[id number] Voice Confirmation ID: [id number] DOCUMENT ID: [id number] Dictated By: RONNA POPE I have interviewed/examined the above patient and agree with these documented findings. APOORVA LAO MD at 1157 at 0940 CC: [id number] DICTATION DATE: 07/22/17 1203 VOCAL PERFORMER: 07/23/17 0936 DIS IN 06/02/17 [place] [id number] [place] [id number]
--- NOTE | ~2017-05-23 | RHP ---
PATIENT: TAWANNA FINNEGAN MEDICAL RECORD: [id number] ACCOUNT: [id number] LOCATION:[facility]1110 : 43 ADMISSION DATE: 05/23/17 REHABILITATION HISTORY AND PHYSICAL EXAMINATION POST ADMISSION PHYSICIAN EXAMINATION ADMITTING DIAGNOSES: COPD and myopathy secondary to his COPD. HISTORY OF PRESENT ILLNESS: The patient is a 72-year-old gentleman admitted to inpatient rehab with COPD and myopathy. He presented to the ER and was admitted on 05/08/2017 with COPD exacerbation as well as a left foot fracture. The patient claims he tripped and fell at home, twisted his left ankle. He also has some pain in his calf and Dopplers were negative. Left foot x-ray showed a nondisplaced oblique second metatarsal shaft fracture and an avulsion fracture at the base of the fifth metatarsal. He was placed in a walking boot. Pulmonary was consulted for COPD. He has a past medical history of chronic hypoxic respiratory failure and COPD. He has AFib and TIA in the past. He was started on albuterol and ipratropium bromide, Brovana, budesonide, IV methylprednisolone with a tapering dose, supplemental O2 and follow up chest x-ray and labs on 05/10/17. He had a small amount of rectal bleeding with bowel movement. His H&H decreased from 9.1 to 7.9. He received 1 unit of packed red blood cells. GI was consulted. He had an elevated INR of 4.45 at that time. His hemoglobin increased to 9 after 1 unit of packed red blood cells. Upper GI series was negative for ulcers or masses. He did have some dysmotility secondary to GERD. His Helicobacter pylori antigen was positive, coagulopathy improved with this. His INR was decreased to 3. EGD and colonoscopy were contraindicated secondary to pulmonary status and high risk for sedation problems. On 05/02/17, he went into respiratory arrest with slow agonal respirations. James gracia was called and he was emergently intubated and transferred to ICU and placed on ventilator. After 5 days on the ventilator, he was extubated to 4 liters of O2 oxymizer. After 9 days in the ICU, he was transferred back out to the floor. A bedside swallow eval was negative for dysphagia and he was extubated and this was done on 05/18/17. Currently, he is in atrial fibrillation/flutter. He is satting at 96% on 3 liters of O2. He is being tapered on his methylprednisolone. He continues to be on Xopenex updrafts. He will resume working with PT and OT to regain his strength. He does have some proximal muscle weakness and he is moderate to max assist for ADLs, moderate to max assist for sit to stand and bed to chair. He was ambulated 40 feet with 40% assist from PT on 5 liters O2. He tires easily in exertion and requires rest stops. He and his are both motivated to get him back to his prior level of functioning and return home. COMORBIDITIES IN THIS PATIENT: Include respiratory arrest, cardiomegaly, bilateral pleural effusions, coronary artery disease, chest pain, dyspnea, pulmonary edema, severe COPD, possible left lower lobe pneumonia, atrial fibrillation/flutter, leukocytosis, gastroesophageal reflux disease, fracture of his foot, hypothyroidism, anemia, fatigue, weakness, O2 dependent and debility. PAST MEDICAL HISTORY: Significant for weakness, hypothyroidism, hypertension, coronary artery disease and COPD. PAST SURGICAL HISTORY: Includes back surgery, elbow surgery and neck surgery. ALLERGIES: HYTRIN. HISTORY AND PHYSICAL [id number] TAWANNA FINNEGAN CURRENT MEDICATIONS: Include warfarin, he is on 7.5 mg Monday and Monday. He is on 5 mg rest of the week. He is on Anoro 1 puff daily, Zoloft 50 mg daily, prednisone he is on a tapering dose, potassium chloride 10 mEq daily, Synthroid 150 mcg daily, Lasix 40 mg daily, Cardura 2 mg daily, Zyloprim 300 mg daily. He is on electrolyte protocol at this time. He is on metoprolol 25 mg b.i.d., finasteride 5 mg q.h.s., aspirin chewable 81 mg daily, and polyethylene glycol 17 grams in 8 ounces of water daily. HABITS: No alcohol or tobacco use. FAMILY HISTORY: Noncontributory. SOCIAL HISTORY: The patient hopes to return back home with his . PHYSICAL EXAMINATION: VITAL SIGNS: Stable. He is afebrile. GENERAL: A well-developed gentleman, in no acute distress, alert upon exam. HEENT: Normocephalic and atraumatic. Mucosa moist. NECK: Supple. No lymphadenopathy. LUNGS: Clear at this time. HEART: Irregular rate and rhythm. ABDOMEN: Benign. EXTREMITIES: No clubbing, cyanosis or edema. NEUROLOGIC: Intact. LABORATORY DATA: His white count is 10.7, H&H of 10.6 and 35.0, platelet count 279. His INR is 2.19. Sodium 145, potassium 3.5, BUN and creatinine of 26 and 1.0 and blood sugar was noted to be 78. 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 The patient has potential to make improvement and we instituted the following multidisciplinary therapies including to but not limited to physical, occupational, respiratory, speech, nutritional services, prosthetics and orthotics. Given his complex condition and risk for more complications, rehabilitation services cannot be provided at a low level of care such as a shelter facility. PLAN: 1. Admit to [facility] for intensive inpatient therapy to include the following disciplines: A. Physical therapy to improve gait, all transfer skills and bed mobility to a modified independent level. B. Occupational therapy to improve activities of daily living to a modified independent level. C. Case management to assist with discharge planning and placement options. D. Nutrition to assist with nutritional needs. E. Rehabilitation nursing to assist in monitoring the patient's underlying medical conditions and to assist with any type of bowel or bladder management. 2. The patient's current medications will be continued. 3. The patient will be placed on standard fall precautions. 4. The patient's estimated length of stay is approximately 7-10 days. 5. We will watch his blood counts closely. We will keep his INR around 2 to hopefully not propagate any more GI bleeding and I will follow him up almost on a daily basis as needed. HISTORY AND PHYSICAL [id number] TAWANNA FINNEGAN TRANSINT:[id number] Voice Confirmation ID: [id number] DOCUMENT ID: [id number] MICHELLE notes whether there has been none or any medical/functional change since admission: - No change since preadmission screen. MICHELLE attests patient continues to be appropriate for IRF: - Continues to be appropriate. APOORVA LAO MD at 0837 CC: [id number] DICTATION DATE: 05/24/17 0838 MARKETING AGENT: 05/24/17 0935 ADM IN [place] [id number] [place] [address]
--- NOTE | ~2017-05-23 | EC ---
PATIENT:TAWANNA FINNEGAN DATE OF SERVICE: 05/23/17 SEX: M MEDICAL RECORD: [id number] DATE OF : 43 LOCATION:[place] [address] AGE OF PATIENT: 72 ADMISSION DATE: 05/23/17 REFERRING PHYSICIAN: INTERPRETING PHYSICIAN: CHI NDIAYE MD ECHOCARDIOGRAM REPORT ECHO CHARGES 4 ECHO COMPLETE CLINICAL DIAGNOSIS: TACHYCARDIA/LOW BP ECHOCARDIOGRAPHIC MEASUREMENTS (adult normal given) AC root (d.<3.7cm) 3.1 cm LV Septum d (<1.2 cm> 1.5 cm Valve Excursion 1.4 cm LV Septum (systole) 1.6 cm Left Atria (s.<4.0cm> 1.3 cm LVPW d(<1.2cm) 1.6 cm RV (d.<2.3cm) 3.7 cm LVPW (sytole) 1.7 cm LV diastole(<5.6CM) 4.3 cm MV E-F(>70mm/sec) cm LV systole 2.6 cm LVOT Diameter cm MV exc.(>10mm) 1.4 cm Est.ejection fraction (50-75%) % Pericardial Effusion N DOPPLER: LVIT cm/sec A 31.0 cm/sec E 141 cm/sec LA cm/sec RVSP 41 mmHg LVOT 102 cm/sec AOP1/2T m/s Asc. Ao 141 cm/sec RVOT 81 cm/sec RA cm/sec PA 104 cm/sec AV Gradient Peak 7.99 mmHg AV Mean 4.87 mmHg AV Area 2.2 cm MV Gradient Peak 9.14 mmHg MV Mean 2.65 mmHg MV Area cm COMMENTS: Price Lister: 2 SANDRA STEINBERG Permit Agent: 4 Dr. Ndiaye TAPE# PACS DATE OF SERVICE: 05/25/2017 PROCEDURE: Transthoracic echocardiogram. FINDINGS: 1. Left ventricle is hyperdynamic. Ejection fraction 65% to 70%. There is no regional wall motion abnormalities. Inflow characteristics are not helpful because the patient is in atrial fibrillation. He does have some evidence of left ventricular hypertrophy. 2. The left atrium is mild to moderately dilated. ECHOCARDIOGRAM REPORT [id number] TAWANNA FINNEGAN 3. The mitral valve has trace mitral regurgitation. 4. Tricuspid valve has mild tricuspid regurgitation, RVSP of 41 mmHg. 5. Right atrium is mildly dilated. 6. The right ventricle is mildly dilated. CONCLUSIONS: The patient has evidence of left ventricular hypertrophy, dilatation of the left atrium, otherwise normal function. Evidence of mild hypertensive heart disease. TRANSINT:[id number] Voice Confirmation ID: [id number] DOCUMENT ID: [id number] CHI NDIAYE MD at 1001 CC: [id number] DICTATION DATE: 05/25/17 1539 WINDOW INSTALLER: 05/25/17 1647 ADM IN [place] [address] [place] [id number]
[2017-05-23 19:30] VITALS: BP 130/84; BMI 25.8
[2017-05-23 20:05] VITALS: BP 123/66
[2017-05-24 06:46] LABS: CALC OSMOLALITY 292 mosm/kg (275-300); CALCIUM 8.5 mg/dL (8.5-10.1); CARBON DIOXIDE 31.3 mmol/L (21.0-32.0); CHLORIDE - SERUM 107 mmol/L (98-107); GLUCOSE 78 mg/dL (74-106); INR 2.19 (0.85-1.17); POTASSIUM - SERUM 3.5 mmol/L (3.5-5.1); PROTIME 23.8 SECONDS (11.6-15.0); SODIUM 145 mmol/L (136-145); UREA NITROGEN 26 mg/dL (7-18); eGFR NON AFRICAN AMERICAN 78 mL/min (90-120)
[2017-05-24 06:47] LABS: BASOPHILS 0.2 % (0-2); EOSINOPHILS 0.2 % (0-7); HEMOGLOBIN 10.6 g/dL (13.5-17.5); IMMATURE GRANULOCYTES 5.6 % (0-5); LYMPHOCYTES 12.9 % (15-50); MCH 25.8 pg (26.0-34.0); MCHC 30.3 g/dL (31.0-37.0); MCV 85.2 fL (80.0-100.0); MEAN PLATELET VOLUME 8.8 fL (7.4-10.4); MONOCYTES 7.7 % (2-11); NEUTROPHILS 73.4 % (40-80); PLATELET COUNT 279 10x3/uL (130-400); RBC 4.11 10x6/uL (4.20-6.10); RDW 17.9 % (11.5-14.5); WBC 10.7 10x3/uL (4.8-10.8)
[2017-05-24 09:05] VITALS: BP 99/68
[2017-05-24 13:52] VITALS: BMI 25.8
[2017-05-24 22:30] VITALS: BP 126/57
[2017-05-25 06:19] LABS: INR 2.1 (0.85-1.17)
[2017-05-25 08:00] VITALS: BP 86/53
[2017-05-25 14:43] VITALS: Ht 177.8 cm; Wt 81.6 kg
[2017-05-25 21:45] VITALS: BP 135/83
[2017-05-26 06:12] LABS: BASOPHILS 0 % (0-2); EOSINOPHILS 0.4 % (0-7); HEMATOCRIT 31.1 % (42.0-54.0); HEMOGLOBIN 9.5 g/dL (13.5-17.5); IMMATURE GRANULOCYTES 3.3 % (0-5); MCH 25.7 pg (26.0-34.0); MCHC 30.5 g/dL (31.0-37.0); MCV 84.3 fL (80.0-100.0); MEAN PLATELET VOLUME 9.1 fL (7.4-10.4); MONOCYTES 4.8 % (2-11); NEUTROPHILS 79.5 % (40-80); PLATELET COUNT 253 10x3/uL (130-400); RBC 3.69 10x6/uL (4.20-6.10); RDW 18.2 % (11.5-14.5); WBC 10.4 10x3/uL (4.8-10.8)
[2017-05-26 06:21] LABS: INR 2.27 (0.85-1.17); PROTIME 24.4 SECONDS (11.6-15.0)
[2017-05-26 06:25] LABS: CALC OSMOLALITY 283 mosm/kg (275-300); CARBON DIOXIDE 30.5 mmol/L (21.0-32.0); CHLORIDE - SERUM 105 mmol/L (98-107); GLUCOSE 86 mg/dL (74-106); POTASSIUM - SERUM 3.7 mmol/L (3.5-5.1); SODIUM 141 mmol/L (136-145); UREA NITROGEN 25 mg/dL (7-18); eGFR NON AFRICAN AMERICAN 78 mL/min (90-120)
[2017-05-26 08:09] VITALS: BP 116/81
[2017-05-26 20:43] VITALS: BP 93/49
[2017-05-27 07:20] LABS: INR 2.39 (0.85-1.17); PROTIME 25.4 SECONDS (11.6-15.0)
[2017-05-27 08:47] VITALS: BP 121/73
[2017-05-27 20:05] VITALS: BP 107/67
[2017-05-28 06:13] LABS: INR 2.52 (0.85-1.17); PROTIME 26.5 SECONDS (11.6-15.0)
[2017-05-28 09:45] VITALS: BP 133/85
[2017-05-28 19:45] VITALS: BP 107/56
[2017-05-29 07:09] LABS: BASOPHILS 0.1 % (0-2); EOSINOPHILS 0.5 % (0-7); HEMATOCRIT 33.2 % (42.0-54.0); HEMOGLOBIN 10.1 g/dL (13.5-17.5); IMMATURE GRANULOCYTES 1.8 % (0-5); LYMPHOCYTES 12.7 % (15-50); MCH 26.2 pg (26.0-34.0); MCHC 30.4 g/dL (31.0-37.0); MEAN PLATELET VOLUME 8.8 fL (7.4-10.4); MONOCYTES 5.7 % (2-11); NEUTROPHILS 79.2 % (40-80); PLATELET COUNT 232 10x3/uL (130-400); RBC 3.86 10x6/uL (4.20-6.10); RDW 18.7 % (11.5-14.5); WBC 9.6 10x3/uL (4.8-10.8)
[2017-05-29 07:21] LABS: INR 2.56 (0.85-1.17); PROTIME 26.8 SECONDS (11.6-15.0)
[2017-05-29 07:25] LABS: CALC OSMOLALITY 287 mosm/kg (275-300); CALCIUM 8.5 mg/dL (8.5-10.1); CARBON DIOXIDE 33.2 mmol/L (21.0-32.0); CHLORIDE - SERUM 103 mmol/L (98-107); CREATININE - SERUM 0.9 mg/dL (0.6-1.3); GLUCOSE 108 mg/dL (74-106); POTASSIUM - SERUM 3.3 mmol/L (3.5-5.1); SODIUM 143 mmol/L (136-145); UREA NITROGEN 19 mg/dL (7-18); eGFR NON AFRICAN AMERICAN 88 mL/min (90-120)
[2017-05-29 08:00] VITALS: BP 98/52
[2017-05-29 21:52] VITALS: BP 130/65
[2017-05-30 06:27] LABS: INR 2.72 (0.85-1.17); PROTIME 28.1 SECONDS (11.6-15.0)
[2017-05-30 08:17] VITALS: BP 95/59
[2017-05-30 23:33] VITALS: BP 136/87
[2017-05-31 07:34] LABS: BASOPHILS 0.1 % (0-2); EOSINOPHILS 0.6 % (0-7); HEMATOCRIT 34.6 % (42.0-54.0); HEMOGLOBIN 10.2 g/dL (13.5-17.5); IMMATURE GRANULOCYTES 1.1 % (0-5); LYMPHOCYTES 16.5 % (15-50); MCH 25.6 pg (26.0-34.0); MCHC 29.5 g/dL (31.0-37.0); MCV 86.7 fL (80.0-100.0); MEAN PLATELET VOLUME 8.9 fL (7.4-10.4); NEUTROPHILS 74.7 % (40-80); PLATELET COUNT 212 10x3/uL (130-400); RBC 3.99 10x6/uL (4.20-6.10); RDW 18.8 % (11.5-14.5); WBC 7.9 10x3/uL (4.8-10.8)
[2017-05-31 07:39] LABS: INR 2.61 (0.85-1.17); PROTIME 27.2 SECONDS (11.6-15.0)
[2017-05-31 07:40] LABS: CALC OSMOLALITY 286 mosm/kg (275-300); CALCIUM 8.4 mg/dL (8.5-10.1); CARBON DIOXIDE 36.7 mmol/L (21.0-32.0); CHLORIDE - SERUM 98 mmol/L (98-107); GLUCOSE 108 mg/dL (74-106); POTASSIUM - SERUM 3.2 mmol/L (3.5-5.1); SODIUM 142 mmol/L (136-145); UREA NITROGEN 22 mg/dL (7-18); eGFR NON AFRICAN AMERICAN 78 mL/min (90-120)
[2017-05-31 08:00] VITALS: BP 120/84
[2017-05-31 20:00] VITALS: BP 140/84
[2017-06-01 07:30] LABS: INR 2.46 (0.85-1.17)
[2017-06-01 07:33] LABS: CALC OSMOLALITY 285 mosm/kg (275-300); CALCIUM 8.6 mg/dL (8.5-10.1); CARBON DIOXIDE 36.7 mmol/L (21.0-32.0); CHLORIDE - SERUM 100 mmol/L (98-107); CREATININE - SERUM 0.9 mg/dL (0.6-1.3); GLUCOSE 94 mg/dL (74-106); POTASSIUM - SERUM 3.7 mmol/L (3.5-5.1); SODIUM 142 mmol/L (136-145); UREA NITROGEN 21 mg/dL (7-18); eGFR NON AFRICAN AMERICAN 88 mL/min (90-120)
[2017-06-01 08:11] VITALS: BP 122/76
[2017-06-01] MEDS ORDERED: K-DUR20 MEQ PO (08:35)
[2017-06-01] MEDS ORDERED: LASIX40 MG PO (08:35)
[2017-06-01] MEDS ORDERED: PULMICORT0.5 MG/21 UPD (08:36)
[2017-06-01 19:45] VITALS: BP 107/56
[2017-06-02 06:25] LABS: INR 2.66 (0.85-1.17); PROTIME 27.6 SECONDS (11.6-15.0)
[2017-06-02 08:52] VITALS: BP 131/89
== END 2017-06-02 12:00 | disposition home health service (06) | DRG 91 ==
LOC: D.REHAB 14:23
PROVIDERS: Emergency Medicine
DX: G72.89 Other specified myopathies (principal); R09.2 Respiratory arrest; J96.21 Acute and chronic respiratory failure with hypoxia; J90 Pleural effusion, not elsewhere classified; J81.1 Chronic pulmonary edema; J44.9 Chronic obstructive pulmonary disease, unspecified; I51.7 Cardiomegaly; I25.10 Atherosclerotic heart disease of native coronary artery without angina pectoris; I48.91 Unspecified atrial fibrillation; D64.9 Anemia, unspecified; K21.9 Gastro-esophageal reflux disease without esophagitis; D72.829 Elevated white blood cell count, unspecified; S92.902D Unspecified fracture of left foot, subsequent encounter for fracture with routine healing; W19.XXXD Unspecified fall, subsequent encounter; Z99.81 Dependence on supplemental oxygen; R53.81 Other malaise; R53.1 Weakness; R53.83 Other fatigue

== ENCOUNTER 2017-06-03 12:13 | Emergency (ER) | payer MEDICARE, OTHER ==
[2017-05-25 14:43] VITALS: BMI 25.8
[~2017-06-03 12:13] MED LIST changes: +K-DUR20 MEQ PO; +LASIX40 MG PO; +PULMICORT0.5 MG/21 UPD
[2017-06-03 12:51] LABS: BASOPHILS 0.1 % (0-2); EOSINOPHILS 1.3 % (0-7); HEMATOCRIT 35.7 % (42.0-54.0); HEMOGLOBIN 10.9 g/dL (13.5-17.5); IMMATURE GRANULOCYTES 0.7 % (0-5); LYMPHOCYTES 13.6 % (15-50); MCH 26.2 pg (26.0-34.0); MCHC 30.5 g/dL (31.0-37.0); MCV 85.8 fL (80.0-100.0); MEAN PLATELET VOLUME 9.1 fL (7.4-10.4); NEUTROPHILS 78.3 % (40-80); PLATELET COUNT 187 10x3/uL (130-400); RBC 4.16 10x6/uL (4.20-6.10); RDW 18.9 % (11.5-14.5); WBC 8.4 10x3/uL (4.8-10.8)
[2017-06-03 13:04] LABS: ALBUMIN 2.8 g/dL (3.4-5.0); ANION GAP 10.4 mmol/L (8-16); BILIRUBIN - TOTAL 0.8 mg/dL (0.2-1.3); CALCIUM 8.5 mg/dL (8.5-10.1); CARBON DIOXIDE 36.4 mmol/L (21.0-32.0); CREATININE - SERUM 1.4 mg/dL (0.6-1.3); POTASSIUM - SERUM 3.8 mmol/L (3.5-5.1)
== END 2017-06-03 15:08 | disposition home or self-care (01) ==
LOC: D.ER 12:13
PROVIDERS: Family Medicine
DX: T82.898A Other specified complication of vascular prosthetic devices, implants and grafts, initial encounter (principal); I12.9 Hypertensive chronic kidney disease with stage 1 through stage 4 chronic kidney disease, or unspecified chronic kidney disease; N18.9 Chronic kidney disease, unspecified; Z79.01 Long term (current) use of anticoagulants; J44.9 Chronic obstructive pulmonary disease, unspecified; I50.9 Heart failure, unspecified

== ENCOUNTER 2017-06-05 05:49 | Emergency (ER) | payer MEDICARE, OTHER ==
[2017-05-25 14:43] VITALS: BMI 25.8
== END 2017-06-05 06:29 | disposition home or self-care (01) ==
LOC: D.ER 05:49
DX: S92.215A Nondisplaced fracture of cuboid bone of left foot, initial encounter for closed fracture (principal); W19.XXXA Unspecified fall, initial encounter; Y93.89 Activity, other specified; Y92.019 Unspecified place in single-family (private) house as the place of occurrence of the external cause; I12.9 Hypertensive chronic kidney disease with stage 1 through stage 4 chronic kidney disease, or unspecified chronic kidney disease; N18.9 Chronic kidney disease, unspecified; J44.9 Chronic obstructive pulmonary disease, unspecified

== ENCOUNTER → 2017-08-21 14:59 | Outpatient (CLI) | payer MEDICARE, OTHER ==
[2017-05-25 14:43] VITALS: BMI 25.8
== END | disposition home or self-care (01) ==
LOC: D.US 14:59
DX: I65.23 Occlusion and stenosis of bilateral carotid arteries (principal)

== ENCOUNTER → 2017-09-08 12:51 | Outpatient (CLI) | payer MEDICARE, OTHER ==
[2017-05-25 14:43] VITALS: BMI 25.8
== END | disposition home or self-care (01) ==
LOC: D.RT 09-05 14:00 → D.RAD 10:30 → D.RT 11:00
DX: J44.9 Chronic obstructive pulmonary disease, unspecified (principal)

== ENCOUNTER → 2017-12-22 09:56 | Outpatient (CLI) | payer MEDICARE, OTHER ==
[2017-05-25 14:43] VITALS: BMI 25.8
== END | disposition home or self-care (01) ==
LOC: D.CT 09:56
DX: I73.9 Peripheral vascular disease, unspecified (principal)

== ENCOUNTER 2018-02-20 04:51 | Inpatient (IN) | payer MEDICARE, OTHER ==
[2018-02-20 05:20] LABS: BASOPHILS 0.2 % (0-2); EOSINOPHILS 0.6 % (0-7); HEMATOCRIT 38.7 % (42.0-54.0); HEMOGLOBIN 12.1 g/dL (13.5-17.5); IMMATURE GRANULOCYTES 1.2 % (0-5); LYMPHOCYTES 12.2 % (15-50); MCH 30.4 pg (26.0-34.0); MCHC 31.3 g/dL (31.0-37.0); MCV 97.2 fL (80.0-100.0); MEAN PLATELET VOLUME 9.3 fL (7.4-10.4); MONOCYTES 9.6 % (2-11); NEUTROPHILS 76.2 % (40-80); PLATELET COUNT 223 10x3/uL (130-400); RBC 3.98 10x6/uL (4.20-6.10); RDW 14.5 % (11.5-14.5)
[2018-02-20 05:51] LABS: APTT 26.7 SECONDS (22.8-39.4); INR 1.32 (0.85-1.17); PROTIME 15.8 SECONDS (11.6-15.0)
[2018-02-20 05:53] LABS: CALC OSMOLALITY 292 mosm/kg (275-300); CALCIUM 8.8 mg/dL (8.5-10.1); CARBON DIOXIDE 32.4 mmol/L (21.0-32.0); CHLORIDE - SERUM 103 mmol/L (98-107); CREATININE - SERUM 1.2 mg/dL (0.6-1.3); GLUCOSE 154 mg/dL (74-106); POTASSIUM - SERUM 4.5 mmol/L (3.5-5.1); SODIUM 143 mmol/L (136-145); UREA NITROGEN 26 mg/dL (7-18); eGFR NON AFRICAN AMERICAN 63 mL/min (90-120)
[2018-02-20 06:12] LABS: ALKALINE PHOSPHATASE 69 U/L (46-116); ALT (SGPT) 16 U/L (10-68); BILIRUBIN - TOTAL 0.88 mg/dL (0.2-1.3); PROTEIN - SERUM 7.1 g/dL (6.4-8.2)
[2018-02-20 06:34] LABS: CREATINE KINASE 21 UL (21-232); TROPONIN-I < 0.017 ng/mL (0.000-0.060)
[2018-02-20 06:51] LABS: CKMB 1.7 U/L (0.0-3.6)
[2018-02-20 07:03] LABS: APPEARANCE CLEAR (CLEAR); BACTERIA FEW /hpf (NONE SEEN); BILIRUBIN NEGATIVE (NEGATIVE); COLOR YELLOW (YELLOW); EPITHELIAL CELLS OCC /hpf (0-5); GLUCOSE NEGATIVE (NEGATIVE); KETONE NEGATIVE (NEGATIVE); MUCUS <1+ /lpf (NONE SEEN); NITRITE NEGATIVE (NEGATIVE); PROTEIN 3+ mg/dL (NEGATIVE); RED CELLS - URINE RARE /hpf (0-5); SPECIFIC GRAVITY 1.015 (1.005-1.020); UROBILINOGEN NORMAL (NORMAL)
[2018-02-20 08:12] LABS: T4 THYROXINE 6.8 ug/dL (4.7-13.3); THYROID STIMULATING HORMONE 2.62 uIU/mL (0.36-3.74)
[2018-02-21 04:19] LABS: BASOPHILS 0 % (0-2); EOSINOPHILS 0 % (0-7); HEMATOCRIT 34.3 % (42.0-54.0); IMMATURE GRANULOCYTES 1.1 % (0-5); LYMPHOCYTES 6.8 % (15-50); MCH 30.6 pg (26.0-34.0); MCHC 32.1 g/dL (31.0-37.0); MCV 95.5 fL (80.0-100.0); MEAN PLATELET VOLUME 9.3 fL (7.4-10.4); NEUTROPHILS 90.1 % (40-80); PLATELET COUNT 208 10x3/uL (130-400); RBC 3.59 10x6/uL (4.20-6.10); RDW 14.6 % (11.5-14.5); WBC 10.4 10x3/uL (4.8-10.8)
[2018-02-21 04:28] LABS: INR 1.33 (0.85-1.17); PROTIME 15.9 SECONDS (11.6-15.0)
[2018-02-21 04:30] LABS: % SATURATION 5 % (15-55); IRON 21 ug/dl (35-150); TOTAL IRON BIND CAPACITY 366 ug/dl (260-445); UNSAT IRON BIND CAPACITY 345 ug/dl (150-375)
[2018-02-21 04:53] LABS: ALBUMIN 2.9 g/dL (3.4-5.0); ANION GAP 14.5 mmol/L (8-16); BILIRUBIN - TOTAL 0.53 mg/dL (0.2-1.3); CALCIUM 8.5 mg/dL (8.5-10.1); CARBON DIOXIDE 29.4 mmol/L (21.0-32.0); CREATININE - SERUM 1.2 mg/dL (0.6-1.3); MAGNESIUM - SERUM 1.6 mg/dL (1.8-2.4); POTASSIUM - SERUM 3.9 mmol/L (3.5-5.1)
[2018-02-22 04:24] LABS: BASOPHILS 0.1 % (0-2); EOSINOPHILS 0 % (0-7); HEMATOCRIT 34.1 % (42.0-54.0); HEMOGLOBIN 10.7 g/dL (13.5-17.5); IMMATURE GRANULOCYTES 0.7 % (0-5); LYMPHOCYTES 3.5 % (15-50); MCH 30.3 pg (26.0-34.0); MCHC 31.4 g/dL (31.0-37.0); MCV 96.6 fL (80.0-100.0); MEAN PLATELET VOLUME 10.1 fL (7.4-10.4); MONOCYTES 2.7 % (2-11); PLATELET COUNT 245 10x3/uL (130-400); RBC 3.53 10x6/uL (4.20-6.10); RDW 14.8 % (11.5-14.5)
[2018-02-22 04:36] LABS: WBC 15.2 10x3/uL (4.8-10.8)
[2018-02-22 04:54] LABS: ANION GAP 11.7 mmol/L (8-16); CALCIUM 9.1 mg/dL (8.5-10.1); CARBON DIOXIDE 30.6 mmol/L (21.0-32.0); MAGNESIUM - SERUM 1.9 mg/dL (1.8-2.4); PHOSPHOROUS 5.7 mg/dL (2.5-4.9); POTASSIUM - SERUM 4.3 mmol/L (3.5-5.1)
[2018-02-22 05:07] LABS: INR 1.66 (0.85-1.17)
[2018-02-23 05:05] LABS: BASOPHILS 0 % (0-2); EOSINOPHILS 0 % (0-7); HEMATOCRIT 33.9 % (42.0-54.0); HEMOGLOBIN 10.6 g/dL (13.5-17.5); IMMATURE GRANULOCYTES 0.8 % (0-5); LYMPHOCYTES 2.3 % (15-50); MCH 29.4 pg (26.0-34.0); MCHC 31.3 g/dL (31.0-37.0); MEAN PLATELET VOLUME 9.9 fL (7.4-10.4); MONOCYTES 2.1 % (2-11); NEUTROPHILS 94.8 % (40-80); PLATELET COUNT 243 10x3/uL (130-400); RDW 14.6 % (11.5-14.5); WBC 12.2 10x3/uL (4.8-10.8)
[2018-02-23 05:09] LABS: MCV 94.2 fL (80.0-100.0)
[2018-02-23 05:29] LABS: INR 2.7 (0.85-1.17); PROTIME 27.9 SECONDS (11.6-15.0)
[2018-02-23 05:36] LABS: BILIRUBIN - DIRECT 0.13 mg/dL (0.00-0.30); BILIRUBIN - INDIRECT 0.17 mg/dL (0.00-1.00); BILIRUBIN - TOTAL 0.3 mg/dL (0.2-1.3); CALCIUM 8.7 mg/dL (8.5-10.1); CARBON DIOXIDE 28.4 mmol/L (21.0-32.0); CREATININE - SERUM 1.9 mg/dL (0.6-1.3); MAGNESIUM - SERUM 1.9 mg/dL (1.8-2.4); PHOSPHOROUS 4.8 mg/dL (2.5-4.9); POTASSIUM - SERUM 4.4 mmol/L (3.5-5.1); PROTEIN - SERUM 6.4 g/dL (6.4-8.2)
[2018-02-24 05:53] LABS: INR 4.04 (0.85-1.17); PROTIME 38.5 SECONDS (11.6-15.0)
[2018-02-24 05:58] LABS: BASOPHILS 0 % (0-2); EOSINOPHILS 0 % (0-7); HEMATOCRIT 33.7 % (42.0-54.0); HEMOGLOBIN 10.8 g/dL (13.5-17.5); IMMATURE GRANULOCYTES 0.7 % (0-5); LYMPHOCYTES 2.2 % (15-50); MCH 29.8 pg (26.0-34.0); MCV 93.1 fL (80.0-100.0); MEAN PLATELET VOLUME 10.2 fL (7.4-10.4); MONOCYTES 1.7 % (2-11); NEUTROPHILS 95.4 % (40-80); PLATELET COUNT 243 10x3/uL (130-400); RBC 3.62 10x6/uL (4.20-6.10); RDW 14.7 % (11.5-14.5); WBC 11.5 10x3/uL (4.8-10.8)
[2018-02-24 06:10] LABS: CALCIUM 8.8 mg/dL (8.5-10.1); CARBON DIOXIDE 26.7 mmol/L (21.0-32.0); CREATININE - SERUM 1.8 mg/dL (0.6-1.3); MAGNESIUM - SERUM 1.8 mg/dL (1.8-2.4); POTASSIUM - SERUM 4.7 mmol/L (3.5-5.1)
[2018-02-25 04:45] LABS: BASOPHILS 0.1 % (0-2); EOSINOPHILS 0 % (0-7); HEMATOCRIT 34.8 % (42.0-54.0); HEMOGLOBIN 11.2 g/dL (13.5-17.5); IMMATURE GRANULOCYTES 1.2 % (0-5); LYMPHOCYTES 2.1 % (15-50); MCH 30.1 pg (26.0-34.0); MCHC 32.2 g/dL (31.0-37.0); MCV 93.5 fL (80.0-100.0); MEAN PLATELET VOLUME 9.9 fL (7.4-10.4); MONOCYTES 2.3 % (2-11); NEUTROPHILS 94.3 % (40-80); PLATELET COUNT 221 10x3/uL (130-400); RBC 3.72 10x6/uL (4.20-6.10); RDW 14.6 % (11.5-14.5); WBC 12.8 10x3/uL (4.8-10.8)
[2018-02-25 04:57] LABS: ANION GAP 9.8 mmol/L (8-16); CARBON DIOXIDE 28.7 mmol/L (21.0-32.0); CREATININE - SERUM 1.4 mg/dL (0.6-1.3); POTASSIUM - SERUM 4.5 mmol/L (3.5-5.1)
[2018-02-25 05:14] LABS: INR 4.54 (0.85-1.17); PROTIME 42.2 SECONDS (11.6-15.0)
[2018-02-26 04:23] LABS: BASOPHILS 0.1 % (0-2); EOSINOPHILS 0 % (0-7); HEMATOCRIT 34.3 % (42.0-54.0); IMMATURE GRANULOCYTES 1.5 % (0-5); LYMPHOCYTES 3.4 % (15-50); MCH 30.1 pg (26.0-34.0); MCHC 32.1 g/dL (31.0-37.0); MCV 93.7 fL (80.0-100.0); MEAN PLATELET VOLUME 9.8 fL (7.4-10.4); MONOCYTES 0.8 % (2-11); NEUTROPHILS 94.2 % (40-80); PLATELET COUNT 233 10x3/uL (130-400); RBC 3.66 10x6/uL (4.20-6.10); RDW 14.6 % (11.5-14.5); WBC 13.1 10x3/uL (4.8-10.8)
[2018-02-26 04:36] LABS: ANION GAP 11.3 mmol/L (8-16); CALCIUM 8.6 mg/dL (8.5-10.1); CREATININE - SERUM 1.2 mg/dL (0.6-1.3); POTASSIUM - SERUM 4.3 mmol/L (3.5-5.1)
[2018-02-26 04:40] LABS: INR 3.82 (0.85-1.17); PROTIME 36.8 SECONDS (11.6-15.0)
== END 2018-02-26 16:02 | disposition home or self-care (01) | DRG 189 ==
LOC: D.ER 04:51 → D.EDHOLD 07:16 → D.M2 14:52
PROVIDERS: Family Medicine; Internal Medicine Pulmonary Disease
DX: J96.22 Acute and chronic respiratory failure with hypercapnia (principal); J15.6 Pneumonia due to other Gram-negative bacteria; J15.212 Pneumonia due to Methicillin resistant Staphylococcus aureus; J44.1 Chronic obstructive pulmonary disease with (acute) exacerbation; I50.32 Chronic diastolic (congestive) heart failure; J98.11 Atelectasis; J44.0 Chronic obstructive pulmonary disease with (acute) lower respiratory infection; J96.21 Acute and chronic respiratory failure with hypoxia; I48.2 Chronic atrial fibrillation; Z79.01 Long term (current) use of anticoagulants; I11.0 Hypertensive heart disease with heart failure; E78.5 Hyperlipidemia, unspecified; E03.9 Hypothyroidism, unspecified; E83.42 Hypomagnesemia; D50.9 Iron deficiency anemia, unspecified; R91.1 Solitary pulmonary nodule; I27.20 Pulmonary hypertension, unspecified; I07.1 Rheumatic tricuspid insufficiency; N40.0 Benign prostatic hyperplasia without lower urinary tract symptoms; M48.061 Spinal stenosis, lumbar region without neurogenic claudication; Z86.73 Personal history of transient ischemic attack (TIA), and cerebral infarction without residual deficits

== ENCOUNTER → 2018-04-20 10:54 | Outpatient (CLI) | payer MEDICARE, BC ==
[2018-02-21 13:04] VITALS: BMI 32.2
[~2018-04-20 10:54] MED LIST changes: +ATROVENT 0.02%2.5 ML INH; +CARAFATE1 G PO; +COZAAR50 MG PO; +GLUCOTROL XL 1010 MG PO; +LEXAPRO10 MG PO; +MACRODANTIN100 MG PO; +NIFEREX-150 CAP1 CA3 PO; +OMNICEF300 MG PO; +VIBRAMYCIN 100100 MG PO; +XOPENEX 0.0.63 MG/3 INH; +[UNRECOGNIZED DRUG - OTHER]
== END | disposition home or self-care (01) ==
LOC: D.RT 04-17 13:00
DX: J44.9 Chronic obstructive pulmonary disease, unspecified (principal)

== ENCOUNTER 2018-06-06 01:58 | Inpatient (IN) | payer MEDICARE, BC ==
[~2018-06-06] VITALS: Ht 177.8 cm; Wt 103.6 kg
[2018-06-06] MEDS ORDERED: ZYLOPRIM300 MG PO (02:10)
[2018-06-06] MEDS ORDERED: SYNTHROID175 MCG PO (02:10)
[2018-06-06 02:41] LABS: BASOPHILS 0.2 % (0-2); EOSINOPHILS 0 % (0-7); HEMOGLOBIN 11.2 g/dL (13.5-17.5); IMMATURE GRANULOCYTES 0.7 % (0-5); LYMPHOCYTES 10.1 % (15-50); MCH 28.4 pg (26.0-34.0); MCHC 31.1 g/dL (31.0-37.0); MCV 91.4 fL (80.0-100.0); MONOCYTES 8.6 % (2-11); NEUTROPHILS 80.4 % (40-80); PLATELET COUNT 203 10x3/uL (130-400); RBC 3.94 10x6/uL (4.20-6.10); RDW 15.3 % (11.5-14.5); WBC 12.8 10x3/uL (4.8-10.8)
[2018-06-06 02:48] LABS: APTT 33.4 SECONDS (22.8-39.4); INR 2.02 (0.85-1.17); PROTIME 22.2 SECONDS (11.6-15.0)
[2018-06-06 02:55] LABS: ALBUMIN 3.4 g/dL (3.4-5.0); ALKALINE PHOSPHATASE 78 U/L (46-116); ALT (SGPT) 17 U/L (10-68); BILIRUBIN - TOTAL 0.91 mg/dL (0.2-1.3); CALC OSMOLALITY 283 mosm/kg (275-300); CALCIUM 8.9 mg/dL (8.5-10.1); CARBON DIOXIDE 37.3 mmol/L (21.0-32.0); CHLORIDE - SERUM 97 mmol/L (98-107); CREATININE - SERUM 1.6 mg/dL (0.6-1.3); GLUCOSE 136 mg/dL (74-106); POTASSIUM - SERUM 4.1 mmol/L (3.5-5.1); PROTEIN - SERUM 7.3 g/dL (6.4-8.2); SODIUM 139 mmol/L (136-145); UREA NITROGEN 25 mg/dL (7-18); eGFR NON AFRICAN AMERICAN 45 mL/min (90-120)
[2018-06-06 03:03] LABS: CKMB 0.8 U/L (0.0-3.6); CREATINE KINASE 48 UL (21-232); PRO BNP 5527 pg/mL (0-125); TROPONIN-I < 0.017 ng/mL (0.000-0.060)
[2018-06-06 04:14] VITALS: BP 114/58
--- NOTE | 2018-06-06 05:30 | NUR ---
ARIVES FROM ER VIA STRETCHER WITH MASK PLACED IN DROPLET ISO LATION IN ROOM FORTY. LUNGS ARE WET SKIN WARM AND DIAPHORETIC. IV SL TO LEFT FORARM. HISTORY COMPLETED
[2018-06-06 06:47] VITALS: BP 105/53; BMI 34.5
[2018-06-06 10:54] LABS: BASOPHILS 0.1 % (0-2); EOSINOPHILS 0 % (0-7); HEMATOCRIT 36.6 % (42.0-54.0); HEMOGLOBIN 11.2 g/dL (13.5-17.5); IMMATURE GRANULOCYTES 0.6 % (0-5); LYMPHOCYTES 3.1 % (15-50); MCH 28.4 pg (26.0-34.0); MCHC 30.6 g/dL (31.0-37.0); MCV 92.7 fL (80.0-100.0); MEAN PLATELET VOLUME 9.2 fL (7.4-10.4); MONOCYTES 2.2 % (2-11); PLATELET COUNT 190 10x3/uL (130-400); RBC 3.95 10x6/uL (4.20-6.10); RDW 15.5 % (11.5-14.5); WBC 11.6 10x3/uL (4.8-10.8)
[2018-06-06 11:23] LABS: APPEARANCE HAZY (CLEAR); COLOR DK YELLOW (YELLOW); SPECIFIC GRAVITY 1.025 (1.005-1.020)
[2018-06-06 11:24] LABS: BACTERIA FEW /hpf (NONE SEEN); BILIRUBIN NEGATIVE (NEGATIVE); EPITHELIAL CELLS OCC /hpf (0-5); GLUCOSE 50 mg/dL (NEGATIVE); HYALINE CAST 0-5 /lpf (NONE SEEN); KETONE NEGATIVE (NEGATIVE); MUCUS <1+ /lpf (NONE SEEN); NITRITE NEGATIVE (NEGATIVE); PROTEIN 1+ mg/dL (NEGATIVE); RED CELLS - URINE OCC /hpf (0-5); UROBILINOGEN NORMAL (NORMAL); WHITE CELLS - URINE OCC /hpf (0-5)
[2018-06-06 11:26] LABS: CALC OSMOLALITY 295 mosm/kg (275-300); CALCIUM 8.3 mg/dL (8.5-10.1); CARBON DIOXIDE 33.2 mmol/L (21.0-32.0); CHLORIDE - SERUM 98 mmol/L (98-107); CKMB 1.7 U/L (0.0-3.6); CREATINE KINASE 55 UL (21-232); CREATININE - SERUM 1.9 mg/dL (0.6-1.3); MAGNESIUM - SERUM 1.8 mg/dL (1.8-2.4); POTASSIUM - SERUM 4.3 mmol/L (3.5-5.1); SODIUM 141 mmol/L (136-145); TROPONIN-I < 0.017 ng/mL (0.000-0.060); UREA NITROGEN 31 mg/dL (7-18); eGFR NON AFRICAN AMERICAN 37 mL/min (90-120)
[2018-06-06 11:37] LABS: GLUCOSE 243 mg/dL (74-106)
--- NOTE | 2018-06-06 12:47 | NUR ---
AUTOMATIC STEEL TIE ADJUSTER ALERTED NURSE THAT PT HAD BLOOD ALL OVER HIM, UPON ASSESSMENT, PT HAD ACCIDENTLY RIPPED OUT HIS IV AND WAS BLEEDING FROM HIS IV SITE. PRESSURE APPLIED UNTIL BLEEDING STOPPED. CLEANED BLOOD OFF OF PT. ADVISED PT THAT RN WILL RESITE PIV ONCE ECHO IS COMPLETE
[2018-06-06 20:57] VITALS: BP 130/78
[2018-06-06 23:59] VITALS: BP 112/78
--- NOTE | 2018-06-07 04:16 | NUR ---
I have reviewed this patient and I concur with the Shift Assessment completed by the Licensed Practical Nurse today this shift.
[2018-06-07 06:56] LABS: BASOPHILS 0 % (0-2); EOSINOPHILS 0 % (0-7); HEMATOCRIT 34.2 % (42.0-54.0); HEMOGLOBIN 10.6 g/dL (13.5-17.5); IMMATURE GRANULOCYTES 0.4 % (0-5); LYMPHOCYTES 3.7 % (15-50); MCH 28.4 pg (26.0-34.0); MCV 91.7 fL (80.0-100.0); MEAN PLATELET VOLUME 9.2 fL (7.4-10.4); MONOCYTES 3.7 % (2-11); NEUTROPHILS 92.2 % (40-80); PLATELET COUNT 182 10x3/uL (130-400); RBC 3.73 10x6/uL (4.20-6.10); RDW 15.4 % (11.5-14.5)
[2018-06-07 06:57] LABS: WBC 15.8 10x3/uL (4.8-10.8)
--- NOTE | 2018-06-07 07:15 | NUR ---
REPORT RECIEVED FROM FORESTRY WORKERS. PATIENT SITTING UP IN BEDSIDE CHAIR WATCHING TV. VSS. PATIENT DENIES ANY NEEDS OR PAIN. WILL CONTINUE WITH PLAN OF CARE. CALL LIGHT IN REACH.
[2018-06-07 07:17] LABS: ANION GAP 9.5 mmol/L (8-16); CALCIUM 8.2 mg/dL (8.5-10.1); CARBON DIOXIDE 35.5 mmol/L (21.0-32.0); CREATININE - SERUM 1.6 mg/dL (0.6-1.3); PHOSPHOROUS 3.9 mg/dL (2.5-4.9)
[2018-06-07 09:27] VITALS: BP 139/93
--- NOTE | 2018-06-07 09:30 | NUR ---
CALLED. ANSWERED QUESTIONS TO HER SATISFACTION.
[2018-06-07 12:44] VITALS: BP 144/56
--- NOTE | 2018-06-07 13:30 | NUR ---
PATIENT STILL SITTING UP IN BEDSIDE CHAIR. ASSESSMENT COMPLETED. PATIENT TO UNDERGO BREATHING TREATMENT . WILL CONTINUE TO MONITOR.
--- NOTE | 2018-06-07 14:15 | NUR ---
PATIENTS FAMILY IN ROOM. ANSWERED SEVERAL QUESTIONS TO PATIENT AND FAMILY SATISFACTION. WILL CONTINUE TO MONITOR.
[2018-06-07 15:12] VITALS: BMI 34.4
--- NOTE | 2018-06-07 16:45 | NUR ---
PATIENT SITTING UP IN BEDSIDE CHAIR WITH EYES CLOSED AND BREATHING EVENLY. NC INFUSINF AT 4.5 L /MIN. WILL CONTINUE TO MONITOR. CALL LIGHT IN REACH.
[2018-06-07 17:09] VITALS: BP 140/66
--- NOTE | 2018-06-07 19:30 | NUR ---
RESUMED REPORT FROM ZAC OTERO. PT SITTING UP IN BEDSIDE RECLINER WITH 4.5 L O2. PT DENIES ANY NEEDS OR PAIN AT THIS TIME. WILL CONTINUE TO MONITOR. CALL LIGHT WITHIN REACH.
[2018-06-07 20:00] VITALS: BP 112/66
[2018-06-08] VITALS: BP 108/58; BP 108/72
[2018-06-08 04:00] VITALS: BP 108/72
--- NOTE | 2018-06-08 04:16 | NUR ---
I have reviewed this patient and I concur with the Shift Assessment completed by the Licensed Practical Nurse today this shift.
--- NOTE | 2018-06-08 05:01 | NUR ---
PT SITTING UP IN RECLINER WITH EYES CLOSED. RR EVEN AND UNLABORED. NO S/S OF DISTRESS. CALL LIGHT WITHIN REACH. WILL CONTINUE TO MONITOR.
[2018-06-08 07:14] LABS: BASOPHILS 0 % (0-2); EOSINOPHILS 0 % (0-7); HEMATOCRIT 32.4 % (42.0-54.0); HEMOGLOBIN 9.9 g/dL (13.5-17.5); IMMATURE GRANULOCYTES 0.2 % (0-5); LYMPHOCYTES 3.1 % (15-50); MCH 27.7 pg (26.0-34.0); MCHC 30.6 g/dL (31.0-37.0); MCV 90.8 fL (80.0-100.0); MEAN PLATELET VOLUME 9.6 fL (7.4-10.4); MONOCYTES 1.7 % (2-11); PLATELET COUNT 177 10x3/uL (130-400); RBC 3.57 10x6/uL (4.20-6.10); RDW 15.4 % (11.5-14.5); WBC 13.8 10x3/uL (4.8-10.8)
[2018-06-08 07:24] LABS: ALBUMIN 2.8 g/dL (3.4-5.0); ANION GAP 6.7 mmol/L (8-16); BILIRUBIN - TOTAL 0.38 mg/dL (0.2-1.3); CALCIUM 8.1 mg/dL (8.5-10.1); CARBON DIOXIDE 37.6 mmol/L (21.0-32.0); CREATININE - SERUM 1.6 mg/dL (0.6-1.3); PROTEIN - SERUM 6.6 g/dL (6.4-8.2)
[2018-06-08 07:30] LABS: POTASSIUM - SERUM 3.3 mmol/L (3.5-5.1)
--- NOTE | 2018-06-08 07:30 | NUR ---
A/A/OX4. DENIES ANY PAIN BUT IS VISIBLY SOB. UP IN CHAIR AT BEDSIDE TO FACILITATE BREATHING. LUNG SOUNDS WITH RALES AND WHEEZES THROUGHTOUT. 02 ON AT 4.5 L/M VIA N/C. PULSE OX READING 98%. RT NOTIFIED AND WILL COME AND GIVE ANOTHER UPDRAFT APPROPRIATE. NO REQUESTS VOICED. BED IN LOCKED LOW POSITION, SIDERAILS UP X 2, CALL LIGHT ACROSS LAP. ASSESSMENT COMPLETED. WILL CONTINUE POC.
[2018-06-08 08:17] VITALS: BP 164/86
[2018-06-08 12:22] VITALS: BP 152/82
--- NOTE | 2018-06-08 13:50 | NUR ---
PT DOES NOT WANT TO DO METANEB, PT STATES HE CAN NOT BREATHE WELL AND DOES NOT METANEB, PT STATES HIS LUNGS ARENT MOVING AIR WELL AND HE CAN NOT TAKE THE METANAB AT THIS TIME
--- NOTE | 2018-06-08 14:48 | NUR ---
Reviewed chart and spoke with nursing and speech therapist BG elevated Pt eating 100% of meals Will add Diabetic and 2gm Na to diet order to better meet pt nutritional needs RD following per protocol
[2018-06-08 14:53] VITALS: Ht 177.8 cm; Wt 103.6 kg
[2018-06-08 16:08] VITALS: BP 166/82
--- NOTE | 2018-06-08 18:26 | NUR ---
I have reviewed this patient and I concur with the Shift Assessment completed by the Licensed Practical Nurse today this shift.
--- NOTE | 2018-06-08 19:30 | NUR ---
PT SITTING UP IN RECLINER ALERT AND ORIENTED X4. NO S/S OF DISTRESS. PT DENIES ANY NEEDS OR PAIN AT THIS TIME. BED LOW CALL LIGHT WITHIN REACH. WILL CONTINUE TO MONITOR
[2018-06-08 20:00] VITALS: BP 116/59
[2018-06-09 04:23] VITALS: BP 105/58
--- NOTE | 2018-06-09 04:52 | NUR ---
PT RESTING IN RECLINER WITH EYES CLOSED. RR EVEN AND UNLABORED. NO S/S OF DISTRESS. WILL CONTINUE TO MONITOR. CALL LIGHT WITHIN REACH.
[2018-06-09 05:52] LABS: INR 1.96 (0.85-1.17); PROTIME 21.7 SECONDS (11.6-15.0)
[2018-06-09 05:55] LABS: ALBUMIN 2.7 g/dL (3.4-5.0); ANION GAP 10.1 mmol/L (8-16); BILIRUBIN - TOTAL 0.27 mg/dL (0.2-1.3); CALCIUM 8.1 mg/dL (8.5-10.1); CARBON DIOXIDE 30.8 mmol/L (21.0-32.0); CREATININE - SERUM 1.5 mg/dL (0.6-1.3); POTASSIUM - SERUM 3.9 mmol/L (3.5-5.1); PROTEIN - SERUM 6.3 g/dL (6.4-8.2)
[2018-06-09 06:17] LABS: BASOPHILS 0 % (0-2); EOSINOPHILS 0 % (0-7); HEMATOCRIT 32.3 % (42.0-54.0); HEMOGLOBIN 10.1 g/dL (13.5-17.5); IMMATURE GRANULOCYTES 0.2 % (0-5); LYMPHOCYTES 3.3 % (15-50); MCH 28.1 pg (26.0-34.0); MCHC 31.3 g/dL (31.0-37.0); MCV 89.7 fL (80.0-100.0); MONOCYTES 3.1 % (2-11); NEUTROPHILS 93.4 % (40-80); PLATELET COUNT 186 10x3/uL (130-400); RDW 15.5 % (11.5-14.5); WBC 12.9 10x3/uL (4.8-10.8)
[2018-06-09 09:23] VITALS: BP 125/71
[2018-06-09 11:38] VITALS: BP 111/57
[2018-06-09 16:15] VITALS: BP 122/76
--- NOTE | 2018-06-09 19:15 | NUR ---
SITTING IN RECLINER WATCHING TV. A/O X4. DENIES PAIN OR ANY NEEDS. IN DROPLET ISOLATION FOR FLU. RR 20 EVEN U/L ON ROOM AIR. IV IN L FA INTACT SL. HAS CL IN REACH.
[2018-06-09 20:00] VITALS: BP 150/86
--- NOTE | 2018-06-09 21:15 | NUR ---
ADMIN SCHED PO/IV MEDS. CHECKED BS AT 154. ADMIN HUMULIN R 2 UNITS. GAVE DIABETIC SNACK VANILLA WAFERS.
--- NOTE | 2018-06-09 23:05 | NUR ---
SITTING IN RECLINER. REQUESTED MORE VANILLA WAFERS AND ICE WATER.
[2018-06-10] VITALS: BP 145/79
[2018-06-10 03:00] VITALS: BP 123/69
--- NOTE | 2018-06-10 05:10 | NUR ---
ADMIN SCHED MEDS WITH SIPS OF WATER. CHECK BS AT 248. ADMIN HUMALOG 4 UNITS SC. DENIES ANY OTHER NEEDS OR DISCOMFORTS.
[2018-06-10 05:56] LABS: BASOPHILS 0 % (0-2); EOSINOPHILS 0 % (0-7); HEMATOCRIT 32.2 % (42.0-54.0); HEMOGLOBIN 9.8 g/dL (13.5-17.5); IMMATURE GRANULOCYTES 0.4 % (0-5); LYMPHOCYTES 2.3 % (15-50); MCH 27.5 pg (26.0-34.0); MCHC 30.4 g/dL (31.0-37.0); MCV 90.2 fL (80.0-100.0); MEAN PLATELET VOLUME 9.5 fL (7.4-10.4); MONOCYTES 3.3 % (2-11); PLATELET COUNT 172 10x3/uL (130-400); RBC 3.57 10x6/uL (4.20-6.10); RDW 15.3 % (11.5-14.5); WBC 11.3 10x3/uL (4.8-10.8)
[2018-06-10 06:42] LABS: ALBUMIN 2.6 g/dL (3.4-5.0); ANION GAP 10.4 mmol/L (8-16); BILIRUBIN - TOTAL 0.37 mg/dL (0.2-1.3); CALCIUM 8.1 mg/dL (8.5-10.1); CARBON DIOXIDE 30.6 mmol/L (21.0-32.0); CREATININE - SERUM 1.4 mg/dL (0.6-1.3)
[2018-06-10 09:27] VITALS: BP 138/82
--- NOTE | 2018-06-10 09:38 | MORECARE ---
CASE MANAGEMENT DISCHARGE SUMMARY PATIENT: TAWANNA FINNEGAN UNIT: [id number] ADM DATE: 06/06/18 AGE: 73 : 44 SEX: M ROOM/BED: D.2140 AUTHOR: YONAS HOOKS PHYSICIAN: REFERRING PHYSICIAN: AMANDA MUNIZ MD DATE OF SERVICE: 06/10/18 Discharge Plan Patient Name: TAWANNA FINNEGAN [facility] [facility] 1945 Planned Disposition: Home Anticipated Discharge Date: 06/12/18 Discharge Date: Expected LOS: 6 Initial Reviewer: [email or web address] Initial Review Date: 06/10/2018 Generated: 06/10/18 10:38 am DCPIA - Discharge Planning Initial Assessment Updated by [email or web address]: Melissa Combs on 06/10/18 9:35 am * Is the patient Alert and Oriented? Yes * How many steps to enter\exit or inside your home? RAMP * PCP DR. YEE * Pharmacy [facility]. * Preadmission Environment Home with Family * ADLs Independent * Equipment Bedside Commode Oxygen Walker * Other Equipment PORTABLE O2, BENCH IN SHOWER * List name and contact numbers for known caregivers / representatives who currently or will assist patient after discharge: MEL () [phone] * Verbal permission to speak to the caregivers and representatives has been obtained from the patient. Yes * Community resources currently utilized None * Additional services required to return to the preadmission environment? Yes * Can the patient safely return to the preadmission environment? Yes * Has this patient been hospitalized within the prior 30 days at any hospital? No Patient Name: TAWANNA FINNEGAN Page 13700 at 0938 All edits/amendments must be made on the electronic document DICTATION DATE: 06/10/18937 PRESS TENDER STAR SIGNAL: BABATUNDE 06/10/18937 RPT#: [id number] DC DATE: STATUS: ADM IN [facility] [address] [place] [address] END OF REPORT
--- NOTE | 2018-06-10 09:45 | MORECARE ---
CASE MANAGEMENT DISCHARGE SUMMARY PATIENT: TAWANNA FINNEGAN UNIT: [id number] ADM DATE: 06/06/18 AGE: 73 : 44 SEX: M ROOM/BED: D.2140 AUTHOR: NEVADOC PHYSICIAN: REFERRING PHYSICIAN: AMANDA MUNIZ MD DATE OF SERVICE: 06/10/18 Discharge Plan Patient Name: TAWANNA FINNEGAN Facility: [facility]:[place] : 1945 Planned Disposition: Home Anticipated Discharge Date: 06/12/18 Discharge Date: Expected LOS: 6 Initial Reviewer: [email or web address] Initial Review Date: 06/10/2018 Generated: 06/10/18 10:45 am Comments DCP- Discharge Planning Updated by [email or web address]: Melissa Combs on 06/10/18 8:[address] Patient Name: TAWANNA FINNEGAN Admission Status: ER Accout number: [id number] Admission Date: 06-06-2018 : 1945 Admission Diagnosis: Attending: AMANDA MUNIZ Current LOS: 4 Anticipated DC Date: 06-12-2018 Planned Disposition: Home Primary Insurance: MEDICARE A & B Discharge Planning Comments: CM MET WITH PATIENT REGARDING D/C NEEDS AND PLANS. PATIENT STATED HE LIVES WITH HIS (MEL) AND SHE WILL DRIVE HIM HOME AT DISCHARGE. PATIENT STATED HE HAS A RAMP TO ENTER HIS HOME. PATIENT STATED HE IS INDEPENDENT WITH HIS CARE AND HAS O2, PORTABLE O2, WALKER, BSC, AND SHOWER BENCH AT HOME. THE PORTABLE TANK IS IN PATIENTS ROOM AT THIS TIME. PATIENTS PCP IS DR. YEE AND USES [facility] FOR HIS PHARMACY. PATIENT REFUSED HOME HEALTH AT THIS TIME. CM WILL CONTINUE TO FOLLOW PATIENT WITH D/C NEEDS AND PLANS. [facility]. MEL () [phone] Automobile Repair Service Estimator: Melissa Combs DCPIA - Discharge Planning Initial Assessment Updated by [email or web address]: Melissa Combs on 06/10/18 9:35 am * Is the patient Alert and Oriented? Yes * How many steps to enter\exit or inside your home? RAMP * PCP DR. YEE * Pharmacy [facility]. * Preadmission Environment Home with Family * ADLs Independent * Equipment Bedside Commode Oxygen Walker * Other Equipment PORTABLE O2, BENCH IN SHOWER * List name and contact numbers for known caregivers / representatives who currently or will assist patient after discharge: MEL () [phone] * Verbal permission to speak to the caregivers and representatives has been obtained from the patient. Yes * Community resources currently utilized None * Additional services required to return to the preadmission environment? Yes * Can the patient safely return to the preadmission environment? Yes * Has this patient been hospitalized within the prior 30 days at any hospital? No Last DP export: 06/10/18 8:38 a Patient Name: TAWANNA FINNEGAN Page [phone] at 0945 All edits/amendments must be made on the electronic document DICTATION DATE: 06/10/18943 DIGITAL RECRUITER: BABATUNDE 06/10/18943 RPT#: [id number] DC DATE: STATUS: ADM IN [facility] [address] [place] [address] END OF REPORT
[2018-06-10 11:56] VITALS: BP 144/86
[2018-06-10 15:55] VITALS: BP 110/66
--- NOTE | 2018-06-10 17:13 | NUR ---
ALERT AND ORIENTED X4. SITTING UP IN CHAIR. SPOUSE ASSIST WITH BATHING. CONTROLLED AFIB 90 ON TELEMETRY. DENIES ANY NEEDS. UPDRAFT TREATMENTS FOR SOB CONTINUED. CONTINUE PLAN OF CARE AND SAFETY PRECAUTIONS.
--- NOTE | 2018-06-10 19:36 | NUR ---
INITIAL ROUNDS AND ASSESSMENT COMPLETED. PT RESTING IN BED. ON DROPLET ISOLATION FOR FLU B. UCAF PER TELEMETRY. O2 @ 3L/NC. SALINE LOCK TO LFA. MONITOR AND CPOC.
[2018-06-10 20:00] VITALS: BP 148/78
--- NOTE | 2018-06-10 22:00 | NUR ---
BEDTIME MEDS GIVEN. FSBS 303. 8 UNITS OF SLIDING SCALE ADMINISTERED. PT ALERT/ORIENTED AND SITTING UP IN BEDSIDE RECLINER. IV ABT UP AND INFUSING, 2ND ABT TO FOLLOW. IV PATENT TO LFA. MONITOR AND CPOC. CALL LIGHT IN REACH.
[2018-06-11 00:25] VITALS: BP 150/81
--- NOTE | 2018-06-11 04:22 | NUR ---
PT UP IN BEDSIDE RECLINER. DOZING OFF AND ON. NO DISTRESS. MONITOR AND CPOC.
[2018-06-11 04:25] VITALS: BP 138/77
[2018-06-11 06:20] LABS: BASOPHILS 0.1 % (0-2); EOSINOPHILS 0 % (0-7); HEMATOCRIT 33.4 % (42.0-54.0); HEMOGLOBIN 10.3 g/dL (13.5-17.5); IMMATURE GRANULOCYTES 0.5 % (0-5); LYMPHOCYTES 3.4 % (15-50); MCHC 30.8 g/dL (31.0-37.0); MCV 90.8 fL (80.0-100.0); MEAN PLATELET VOLUME 9.1 fL (7.4-10.4); MONOCYTES 4.7 % (2-11); NEUTROPHILS 91.3 % (40-80); PLATELET COUNT 150 10x3/uL (130-400); RBC 3.68 10x6/uL (4.20-6.10); RDW 15.4 % (11.5-14.5); WBC 10.7 10x3/uL (4.8-10.8)
[2018-06-11 06:46] LABS: ALBUMIN 2.7 g/dL (3.4-5.0); ANION GAP 9.7 mmol/L (8-16); BILIRUBIN - TOTAL 0.37 mg/dL (0.2-1.3); CALCIUM 8.6 mg/dL (8.5-10.1); CARBON DIOXIDE 35.6 mmol/L (21.0-32.0); CREATININE - SERUM 1.2 mg/dL (0.6-1.3); POTASSIUM - SERUM 4.3 mmol/L (3.5-5.1); PROTEIN - SERUM 6.1 g/dL (6.4-8.2)
--- NOTE | 2018-06-11 07:50 | NUR ---
RECEIVED A/A/OX4. DENIES ANY PROBLEMS OR PAIN AT PRESENT TIME AND NO REQUESTS VOICED. STATES HE IS FEELING A LOT BETTER TODAY AND FEELS LIKE HIS LUNGS ARE CLEARER. REMAINS IN DROPLET ISOLATION WITH PRECAUTIONS BEING CARRIED OUT. BED LOCKED IN LOWER POSTION WITH SIDERAILS UP X 2. PT IS SITTING IN BEDSIDE CHAIR AT PRESENT TIME AND CALL LIGHT IN REACH. ASSESSMENT COMPLETED AND WILL CONTINUE POC.
[2018-06-11 08:30] VITALS: BP 139/72
[2018-06-11 12:02] VITALS: BP 150/70
--- NOTE | 2018-06-11 13:36 | NUR ---
I have reviewed this patient and I concur with the Shift Assessment completed by the Licensed Practical Nurse today this shift.
[2018-06-11 15:31] VITALS: BP 150/90
--- NOTE | 2018-06-11 19:53 | NUR ---
INITIAL ROUNDS AND ASSESSMENT COMPLETED. PT RESTING IN BED WITH NO DISTRESS. O2 @ 3L/NC. STAYS UP IN RECLINER. SALINE LOCK TO LFA. MONITOR AND CPOC.
[2018-06-11 20:00] VITALS: BP 145/76
[2018-06-12 00:25] VITALS: BP 147/91
[2018-06-12 04:25] VITALS: BP 139/80
[2018-06-12 05:22] LABS: BASOPHILS 0 % (0-2); EOSINOPHILS 0 % (0-7); HEMATOCRIT 33.8 % (42.0-54.0); HEMOGLOBIN 10.5 g/dL (13.5-17.5); IMMATURE GRANULOCYTES 1.1 % (0-5); LYMPHOCYTES 3.6 % (15-50); MCHC 31.1 g/dL (31.0-37.0); MCV 90.1 fL (80.0-100.0); MEAN PLATELET VOLUME 9.6 fL (7.4-10.4); MONOCYTES 2.1 % (2-11); NEUTROPHILS 93.2 % (40-80); PLATELET COUNT 159 10x3/uL (130-400); RBC 3.75 10x6/uL (4.20-6.10); RDW 15.3 % (11.5-14.5); WBC 9.7 10x3/uL (4.8-10.8)
[2018-06-12 05:34] LABS: INR 2.81 (0.85-1.17); PROTIME 28.8 SECONDS (11.6-15.0)
--- NOTE | 2018-06-12 05:37 | NUR ---
PT HAS RESTED THE NIGHT IN HIS RECLINER. ALL IV ABT RECIEVED. NO DISTRESS. VERY PLEASANT TO CONVERSE WITH. MONITOR AND CPOC.
[2018-06-12 06:36] LABS: ALBUMIN 2.6 g/dL (3.4-5.0); ANION GAP 8.4 mmol/L (8-16); BILIRUBIN - TOTAL 0.42 mg/dL (0.2-1.3); CALCIUM 8.3 mg/dL (8.5-10.1); CARBON DIOXIDE 35.4 mmol/L (21.0-32.0); CREATININE - SERUM 1.3 mg/dL (0.6-1.3); POTASSIUM - SERUM 3.8 mmol/L (3.5-5.1); PROTEIN - SERUM 6.3 g/dL (6.4-8.2)
--- NOTE | 2018-06-12 07:10 | NUR ---
RECEIVED REPORT. ASSUMED CARE OF PATIENT. CALL LIGHT WITHIN REACH. PATIENT SITTING IN CHAIR AT BEDSIDE RECEIVING BREATHING TREATMENT AT THIS TIME. NO DISTRESS. RESP EVEN AND UNLABORED.
--- NOTE | 2018-06-12 07:40 | NUR ---
DIET COJESUS PROVIDED UPON REQUEST. NO DISTRESS.
[2018-06-12 08:41] VITALS: BP 178/108
--- NOTE | 2018-06-12 11:26 | NUR ---
FSBS 309. 8 UNITS HUMALOG ADMINISTERED PER SLIDING SCALE.
--- NOTE | 2018-06-12 14:40 | NUR ---
Nutrition follow-up: Pt in droplet precautions for Flu Diet: ADA 2 gm Na PO intake ~70% average of last 9 meals Labs reviewed; glucose still elevated possibly due to infection Wt: 225# No BM charted PO intake fair to good at most meals. Will continue to provdie food choices and honor food preferences. RDN following.
--- NOTE | 2018-06-12 14:51 | NUR ---
SITTING IN CHAIR AT BEDSIDE. HERE FOR ROUNDS. WILL REMOVE PATIENT FROM ISOLATION IN THE AM. NO DISTRESS. CALL LIGHT WITHIN REACH.
--- NOTE | 2018-06-12 16:35 | NUR ---
FSBS 236. 4 UNITS HUMALOG ADMINISTERED PER SLIDING SCALE.
--- NOTE | 2018-06-12 19:35 | NUR ---
AWAKE ALERT AND OX4 UP IN BEDSIDE RECLINER AND REPORTS HE CAN NOT BREATHE NOR SLEEP IN THE BED LCTA AND SKIN DRY AND COOL PT REPORTS NO ISSUE THERE AND NO PAIN.. CALL LIGHT IS IN REACH AT THIS TIME. O2 IS AT 3L/NC SL TO LFT FA ....CONT TO OBSERVE DROPPLET ISOLATION
[2018-06-12 20:00] VITALS: BP 146/78
[2018-06-13] VITALS: BP 146/88
[2018-06-13 04:00] VITALS: BP 142/97
[2018-06-13 05:49] LABS: BASOPHILS 0.1 % (0-2); EOSINOPHILS 0.1 % (0-7); HEMATOCRIT 33.5 % (42.0-54.0); HEMOGLOBIN 10.4 g/dL (13.5-17.5); IMMATURE GRANULOCYTES 2.4 % (0-5); LYMPHOCYTES 2.5 % (15-50); MCH 27.6 pg (26.0-34.0); MCV 88.9 fL (80.0-100.0); MEAN PLATELET VOLUME 9.8 fL (7.4-10.4); MONOCYTES 3.9 % (2-11); PLATELET COUNT 187 10x3/uL (130-400); RBC 3.77 10x6/uL (4.20-6.10); RDW 15.1 % (11.5-14.5); WBC 10.8 10x3/uL (4.8-10.8)
[2018-06-13 06:28] LABS: ANION GAP 7.1 mmol/L (8-16); CALCIUM 8.2 mg/dL (8.5-10.1); CARBON DIOXIDE 36.6 mmol/L (21.0-32.0); CREATININE - SERUM 1.2 mg/dL (0.6-1.3); POTASSIUM - SERUM 3.7 mmol/L (3.5-5.1)
--- NOTE | 2018-06-13 08:27 | NUR ---
AM ROUNDS COMPLETED. INTRODUCED MYSELF TO PT PRIMARY RN FOR TODAYS SHIFT. SHIFT ASSESSMENT COMPLETED. PROVIDED PT WITH AM MEDICATIONS AND PT SWALLOWED WITHOUT ANY DIFFICULTIES EATING BREAKFAST SITTING UP IN HIS BEDSIDE CHAIR. PT STATES HE IS FEELING "ALRIGHT" BUT STILL DOESNT FEEL LIKE HE IS BREATHING THAT WELL. RR NONLABORED CURRENTLY WITH NC @3L IN PLACE AND PT STATES THIS IS HIS HOME DOSE WELL. PT COMPLAINS THAT HE IS NOT COUGHING ANYTHING UP AND FEELS CONGESTED BUT AT HOME HE WAS ABLE TO HAVE A PRODUCTIVE COUGH WHICH MADE HIM FEEL LIKE HE WAS BREATHING EASIER. PT IS ON MUCINEX AND LUNGS HAVE WHEEZING EXPIRATORY BUT DO NOT SOUND CONGESTED. WILL DISCUSS WITH PRIMARY. PT DENIES ANY CURRENT PAIN OR NEEDS AT THIS TIME. CL IN REACH, BED IN LOWEST, SIDE RAILS X2. WILL CPOC.
[2018-06-13 08:34] VITALS: BP 139/79
[2018-06-13 11:31] VITALS: BP 139/82
--- NOTE | 2018-06-13 11:56 | NUR ---
FSBS 318 PRVOVIDED PT WITH 8 UNITS OF INSULIN PER SS. PT SITTING UP IN HIS BEDSIDE CHAIR RESTING QUIETLY WITH HIS AT BEDSIDE. PT STATES HE IS FEELING PRETTY GOOD OVERALL. AT BEDSIDE AND INSTRUCTED PT TO USE HIS FLUTTER VALVE. PT DEMONSTRATED APPROPRIATE USE. NO CURRENT NEEDS. WILL CTM.
--- NOTE | 2018-06-13 14:13 | NUR ---
EMPTIED URINAL OF 325ML OF CLEAR YELLOW URINE. PT RESTING QUIETLY IN HIS BEDSIDE CHAIR WITH AT BEDSIDE. ASSISTED HIM WITH HIS FLUTTER VALVE AGAIN. PT DENIES ANY CURRENT PAIN OR NEEDS. CL IN REACH. WILL CTM.
[2018-06-13 16:17] VITALS: BP 152/94
--- NOTE | 2018-06-13 18:17 | NUR ---
PT SITTING UP IN HIS BEDSIDE CHAIR RESTING QUIETLY. PT STATES HE HAD A GOOD DAY AND FEELS A LITTLE BETTER. RR NONLABORED ON 2.5L NC. NO FURTHER NEEDS AT THIS TIME. WILL CPOC.
--- NOTE | 2018-06-13 18:50 | NUR ---
ALERT AND OX4... RESP SEEM SHALLOW BUT PT DENIES SOB LCTA IN UPPER BASES AT THIS TIME CALL LIGHT IN REACH PT REMAINS UP IN RECLINER
[2018-06-13 20:00] VITALS: BP 127/81
[2018-06-14 00:30] VITALS: BP 167/86
--- NOTE | 2018-06-14 04:39 | NUR ---
I have reviewed this patient and I concur with the Shift Assessment completed by the Licensed Practical Nurse today this shift.
[2018-06-14 05:00] VITALS: BP 153/88
[2018-06-14 05:59] LABS: BASOPHILS 0.1 % (0-2); EOSINOPHILS 0 % (0-7); HEMATOCRIT 33.4 % (42.0-54.0); HEMOGLOBIN 10.4 g/dL (13.5-17.5); IMMATURE GRANULOCYTES 4.7 % (0-5); LYMPHOCYTES 2.8 % (15-50); MCH 27.5 pg (26.0-34.0); MCHC 31.1 g/dL (31.0-37.0); MCV 88.4 fL (80.0-100.0); MEAN PLATELET VOLUME 10.3 fL (7.4-10.4); MONOCYTES 4.7 % (2-11); NEUTROPHILS 87.7 % (40-80); PLATELET COUNT 200 10x3/uL (130-400); RBC 3.78 10x6/uL (4.20-6.10); RDW 15.1 % (11.5-14.5); WBC 9.8 10x3/uL (4.8-10.8)
[2018-06-14 06:30] LABS: ANION GAP 8.4 mmol/L (8-16); CALCIUM 8.5 mg/dL (8.5-10.1); CARBON DIOXIDE 36.2 mmol/L (21.0-32.0); CREATININE - SERUM 1.2 mg/dL (0.6-1.3); POTASSIUM - SERUM 3.6 mmol/L (3.5-5.1)
--- NOTE | 2018-06-14 07:45 | NUR ---
AM ROUNDS COMPLETED. SHIFT ASSSESSMENT PERFORMED. INTRODUCED MYSELF TO PT PRIMARY RN FOR TODAYS SHIFT. PT IS A&O SITTING UP IN BEDSIDE CHAIR RESTING QUIETLY. PTS LUNGS SOUND BETTER TODAY HOWEVER HE IS STILL JUST FEELING WEAK AND TIRED OVERALL DUE TO LACK OF SLEEP. PT DOESNT FEEL QUITE READY FOR DISCHARGE YET HOWEVER IS DEFINITELY WORN OUT FROM BEING IN THE HOSPITAL. PT DENIES ANY CURRENT PAIN OR NEEDS. CL IN REACH. WILL CTM.
[2018-06-14 08:08] LABS: PROTIME 34.5 SECONDS (11.6-15.0)
[2018-06-14 08:15] LABS: INR 3.52 (0.85-1.17)
[2018-06-14 08:32] VITALS: BP 140/81
--- NOTE | 2018-06-14 09:38 | NUR ---
PT BACK FROM AMBULATING WITH THERAPY AND IS DOING HIS FLUTTER VALVE. PT STATES IT FELT GOOD TO BE OOB HOWEVER HE IS WORN OUT AND STILL C/O NOT GETTING GOOD SLEEP. RR NONLABORED WITH NC @3L IN PLACE. PT SWALLOWED ALL HIS MORNING MEDICATIONS WITHOUT ANY DIFFICULTIES NOTED. PT SITTING UP IN HIS BEDSIDE CHAIR AND DENIES ANY CURRENT PAIN OR NEEDS. CL IN REACH. WILL CTM.
--- NOTE | 2018-06-14 10:25 | NUR ---
PT SITTING UP IN HIS CHAIR RESTING WITH HIS AT BEDSIDE AND JUST FINISHED HIS INCENTIVE SPIROMETER. PT REQUESTING SOME ICE CREAM AND WAS PROVIDED WITH IT. PT DENIES ANY CURRENT PAIN OR NEEDS. WILL CTM.
[2018-06-14 12:04] VITALS: BP 145/81
--- NOTE | 2018-06-14 12:18 | NUR ---
AT BEDSIDE ROUNDING. PT SOUNDING BETTER HOWEVER STILL WHEEZING SLIGHTLY. WILL CHANGE PIV ANBX OVER TO ORAL AND KEEP PT OVERNIGHT AND PLAN FOR D/C IN THE AM. PT VOICED THANKS AND AGREES WITH THIS PLAN. PT AGAIN DEMONSTRATED PROPER USAGE OF FLUTTER VALVE AND IS RESTING QUIETLY IN BEDSIDE CHAIR. DENIES ANY CURRENT PAIN OR NEEDS AT THIS TIME WILL CTM.
[2018-06-14 16:12] VITALS: BP 149/85
--- NOTE | 2018-06-14 16:26 | MORECARE ---
CASE MANAGEMENT DISCHARGE SUMMARY PATIENT: TAWANNA FINNEGAN UNIT: [id number] ADM DATE: 06/06/18 AGE: 73 : 44 SEX: M ROOM/BED: D.2140 AUTHOR: NEVADOC PHYSICIAN: REFERRING PHYSICIAN: AMANDA MUNIZ MD DATE OF SERVICE: 06/14/18 Discharge Plan Patient Name: TAWANNA FINNEGAN Facility: [facility]:[place] : 1945 Planned Disposition: Home Anticipated Discharge Date: 06/12/18 Discharge Date: Expected LOS: 6 Initial Reviewer: [email or web address] Initial Review Date: 06/10/2018 Generated: 06/14/18 5:26 pm Comments DCP- Discharge Planning Updated by [email or web address]: Vitor Garcia on 06/14/18 3:[address] Patient Name: TAWANNA FINNEGAN Encounter No: [id number] : 1945 Primary Insurance: MEDICARE A & B Anticipated DC Date: 06-12-2018 Planned Disposition: Home DCP follow-up note: CM MET WITH PT IN ROOM TO DISCUSS DISCHARGE NEEDS AND PLANNING. TAWANNA FINNEGAN provided verbal consent to discuss current and ongoing needs with/in the presence of: SPOUSE, MEL. CM DISCUSSED AVAILABILITY OF HOME HEALTH, REHAB SERVICES AND MEDICAL EQUIPMENT. PT DENIES DISCHARGE NEEDS. SPOUSE TO TRANSPORT HOME AT DISCHARGE. IMPORTANT MESSAGE FROM MEDICARE PROVIDED AND EXPLAINED. PT'S SPOUSE REPORTS THAT DR. YEE ORDERED A LIGHTWEIGHT WHEELCHAIR FOR PT THREE WEEKS AGO AND ASKED IF CM COULD ASSIST IN GETTING THINGS SPED UP. CM ASKED IF SHE KNEW THE PROBLEM, STATES THAT [facility] STATED THAT THEY ARE WAITING ON DR. APONTE'Maria Del Rosario TO GET THEM SOMETHING. CM ADVISED FOR MEL TO CALL DR. YEE NURSE AND INFORM HER OF THE DELAY AND ASK WHAT SHE MIGHT COULD DO TO SPEED THIS UP. MEL WILL CALL. PT TO DISCHARGE HOME WITH SPOUSE, DENIES NEEDS FOR DISCHARGE. CM TO FOLLOW AND ASSIST IF NEEDED. SHANTELLE Carlton DCP- Discharge Planning Updated by [id number]: Melissa Combs on 06/10/18 8:[address] Patient Name: TAWANNA FINNEGAN Admission Status: ER Accout number: [id number] Admission Date: 06-06-2018 : 1945 Admission Diagnosis: Attending: AMANDA MUNIZ Current LOS: 4 Anticipated DC Date: 06-12-2018 Planned Disposition: Home Primary Insurance: MEDICARE A & B Discharge Planning Comments: CM MET WITH PATIENT REGARDING D/C NEEDS AND PLANS. PATIENT STATED HE LIVES WITH HIS (MEL) AND SHE WILL DRIVE HIM HOME AT DISCHARGE. PATIENT STATED HE HAS A RAMP TO ENTER HIS HOME. PATIENT STATED HE IS INDEPENDENT WITH HIS CARE AND HAS O2, PORTABLE O2, WALKER, BSC, AND SHOWER BENCH AT HOME. THE PORTABLE TANK IS IN PATIENTS ROOM AT THIS TIME. PATIENTS PCP IS DR. YEE AND USES [facility] ON [facility] FOR HIS PHARMACY. PATIENT REFUSED HOME HEALTH AT THIS TIME. CM WILL CONTINUE TO FOLLOW PATIENT WITH D/C NEEDS AND PLANS. [facility]. MEL () [phone] Museum Curator: Melissa Combs DCPIA - Discharge Planning Initial Assessment Updated by [email or web address]: Melissa Combs on 06/10/18 9:35 am * Is the patient Alert and Oriented? Yes * How many steps to enter\exit or inside your home? RAMP * PCP DR. YEE * Pharmacy [facility]. * Preadmission Environment Home with Family * ADLs Independent * Equipment Bedside Commode Oxygen Walker * Other Equipment PORTABLE O2, BENCH IN SHOWER * List name and contact numbers for known caregivers / representatives who currently or will assist patient after discharge: MEL () [phone] * Verbal permission to speak to the caregivers and representatives has been obtained from the patient. Yes * Community resources currently utilized None * Additional services required to return to the preadmission environment? Yes * Can the patient safely return to the preadmission environment? Yes * Has this patient been hospitalized within the prior 30 days at any hospital? No Coverage Notice Reviewer: [id number] - Vitor Garcia Notice Issued Date-Time: 06/14/2018 13:20 Notice Type: IM Discharge Notice Notice Delivered To: Family Member Relationship to Patient: Spouse Business Analyst Project Manager Name: MEL FINNEGAN Delivery Method: HAND - Hand Delivered Linda Days: Prior Verbal Notification: Recipient Understood Notice: Yes Recipient Signature: Yes Med Rec Note Co-signed by Attending: Coverage Notice Comment: Last DP export: 06/10/18 8:45 a Patient Name: TAWANNA FINNEGAN Page 15813 at 1626 All edits/amendments must be made on the electronic document DICTATION DATE: 06/14/181625 REGISTRAR NURSES' REGISTRY: BABATUNDE 06/14/186 RPT#: [id number] DC DATE: STATUS: ADM IN [facility] [address] [place] [address] END OF REPORT
--- NOTE | 2018-06-14 16:44 | NUR ---
FSBS 306 PROVIDED PT WITH INSULIN PER SS. PT IS SITTING UP IN BED RESTING QUIETLY. PT DENIES ANY CURRENT PAIN OR NEEDS. PROVIDED PT WITH FRESH ICE WATER AND HE STATES HE IS FEELING GOOD AND WAS JUST NAPPING AND WAITING ON DINNER. CL IN REACH. WILL CTM.
[2018-06-14 20:00] VITALS: BP 112/64
--- NOTE | 2018-06-14 20:50 | NUR ---
RESUMING PT CARE. PT ALERT SITTING CHAIRSIDE. NO C/O VOICED AT THIS TIME. NO S/S OF DISTRESS NOTED. CALL LIGHT IS IN REACH. WILL CONTINUE TO MONITOR PT AND FOLLOW PLAN OF CARE.
--- NOTE | 2018-06-15 03:29 | NUR ---
I have reviewed this patient and I concur with the Shift Assessment completed by the Licensed Practical Nurse today this shift.
[2018-06-15 04:00] VITALS: BP 135/79
[2018-06-15 06:46] LABS: BASOPHILS 0.1 % (0-2); EOSINOPHILS 0 % (0-7); HEMATOCRIT 34.5 % (42.0-54.0); HEMOGLOBIN 10.9 g/dL (13.5-17.5); IMMATURE GRANULOCYTES 6.2 % (0-5); LYMPHOCYTES 2.5 % (15-50); MCH 27.7 pg (26.0-34.0); MCHC 31.6 g/dL (31.0-37.0); MCV 87.8 fL (80.0-100.0); MEAN PLATELET VOLUME 9.8 fL (7.4-10.4); MONOCYTES 4.6 % (2-11); NEUTROPHILS 86.6 % (40-80); PLATELET COUNT 215 10x3/uL (130-400); RBC 3.93 10x6/uL (4.20-6.10); RDW 14.9 % (11.5-14.5)
[2018-06-15 07:01] LABS: WBC 12.5 10x3/uL (4.8-10.8)
[2018-06-15 07:05] LABS: ANION GAP 8.3 mmol/L (8-16); CALCIUM 8.5 mg/dL (8.5-10.1); CARBON DIOXIDE 35.3 mmol/L (21.0-32.0); CREATININE - SERUM 1.2 mg/dL (0.6-1.3); POTASSIUM - SERUM 3.6 mmol/L (3.5-5.1)
--- NOTE | 2018-06-15 08:00 | NUR ---
PT RESTING IN CHAIR WITH BREAKFAST IN REACH. PT REPORTS THAT HIS IV LEAKED LAST NIGHT. UPON ASSESSMENT, IV WAS INFILTRATED. REMOVED PIV TO PT LEFT FA WITH CATHETER TIP INTACT. PT STATES HE DOES NOT WANT A NEW IV SINCE HE IS GOING HOME TODAY. NOTIFIED DEBRA VILLALPANDO THAT PT DID NOT RECIEVE IV LASIX OR SOLU MEDROL. PO AM MEDICATIONS GIVEN WITHOUT DIFFICULTY. DENIES ANY OTHER NEEDS AT THIS TIME, WILL CONT TO FOLLOW PLAN OF CARE
[2018-06-15 08:25] VITALS: BP 139/84
[2018-06-15 12:08] VITALS: BP 142/76
[2018-06-15] MEDS ORDERED: VIBRAMYCIN 100100 MG PO (13:46)
--- NOTE | 2018-06-15 14:00 | NUR ---
DISCHARGE INSTRUCTIONS REVIEWED WITH PT. TELEMETRY REMOVED AND TAKEN TO INSTRUMENT AND CONTROL SERVICE PERSON. PT TAKEN TO FRONT OF THE HOSPITAL VIA WHEELCHAIR. PT LEFT WITH HIS
--- NOTE | 2018-06-18 09:56 | MORECARE ---
CASE MANAGEMENT DISCHARGE SUMMARY PATIENT: TAWANNA FINNEGAN UNIT: [id number] ADM DATE: 06/06/18 AGE: 73 : 44 SEX: M ROOM/BED: D.2140 AUTHOR: NEVADOC PHYSICIAN: REFERRING PHYSICIAN: AMANDA MUNIZ MD DATE OF SERVICE: 06/18/18 Discharge Plan Patient Name: TAWANNA FINNEGAN Facility: [facility]:[place] : 1945 Planned Disposition: Home Anticipated Discharge Date: 06/15/18 Discharge Date: 06/15/2018 Expected LOS: 9 Initial Reviewer: [email or web address] Initial Review Date: 06/10/2018 Generated: 06/18/18 10:56 am DCP- Discharge Planning Updated by [email or web address]: Vitor Garcia on 06/14/18 3:[address] Patient Name: TAWANNA FINNEGAN Encounter No: [id number] : 1945 Primary Insurance: MEDICARE A & B Anticipated DC Date: 06-12-2018 Planned Disposition: Home DCP follow-up note: CM MET WITH PT IN ROOM TO DISCUSS DISCHARGE NEEDS AND PLANNING. TAWANNA FINNEGAN provided verbal consent to discuss current and ongoing needs with/in the presence of: SPOUSE, MEL. CM DISCUSSED AVAILABILITY OF HOME HEALTH, REHAB SERVICES AND MEDICAL EQUIPMENT. PT DENIES DISCHARGE NEEDS. SPOUSE TO TRANSPORT HOME AT DISCHARGE. IMPORTANT MESSAGE FROM MEDICARE PROVIDED AND EXPLAINED. PT'S SPOUSE REPORTS THAT DR. YEE ORDERED A LIGHTWEIGHT WHEELCHAIR FOR PT THREE WEEKS AGO AND ASKED IF CM COULD ASSIST IN GETTING THINGS SPED UP. CM ASKED IF SHE KNEW THE PROBLEM, STATES THAT [facility] STATED THAT THEY ARE WAITING ON DR. APONTE'Maria Del Rosario TO GET THEM SOMETHING. CM ADVISED FOR MEL TO CALL DR. YEE NURSE AND INFORM HER OF THE DELAY AND ASK WHAT SHE MIGHT COULD DO TO SPEED THIS UP. MEL WILL CALL. PT TO DISCHARGE HOME WITH SPOUSE, DENIES NEEDS FOR DISCHARGE. CM TO FOLLOW AND ASSIST IF NEEDED. SHANTELLE Carlton DCP- Discharge Planning Updated by [email or web address]: Melissa Combs on 06/10/18 8:[address] Patient Name: TAWANNA FINNEGAN Admission Status: ER Accout number: [id number] Admission Date: 06-06-2018 : 1945 Admission Diagnosis: Attending: AMANDA MUNIZ Current LOS: 4 Anticipated DC Date: 06-12-2018 Planned Disposition: Home Primary Insurance: MEDICARE A & B Discharge Planning Comments: CM MET WITH PATIENT REGARDING D/C NEEDS AND PLANS. PATIENT STATED HE LIVES WITH HIS (MEL) AND SHE WILL DRIVE HIM HOME AT DISCHARGE. PATIENT STATED HE HAS A RAMP TO ENTER HIS HOME. PATIENT STATED HE IS INDEPENDENT WITH HIS CARE AND HAS O2, PORTABLE O2, WALKER, BSC, AND SHOWER BENCH AT HOME. THE PORTABLE TANK IS IN PATIENTS ROOM AT THIS TIME. PATIENTS PCP IS DR. YEE AND USES [facility] ON [facility] FOR HIS PHARMACY. PATIENT REFUSED HOME HEALTH AT THIS TIME. CM WILL CONTINUE TO FOLLOW PATIENT WITH D/C NEEDS AND PLANS. [facility]. MEL () [phone] Garnett Machine Operator: Melissa Combs DCPIA - Discharge Planning Initial Assessment Updated by [email or web address]: Melissa Combs on 06/10/18 9:35 am * Is the patient Alert and Oriented? Yes * How many steps to enter\exit or inside your home? RAMP * PCP DR. YEE * Pharmacy [facility]. * Preadmission Environment Home with Family * ADLs Independent * Equipment Bedside Commode Oxygen Walker * Other Equipment PORTABLE O2, BENCH IN SHOWER * List name and contact numbers for known caregivers / representatives who currently or will assist patient after discharge: MEL () [phone] * Verbal permission to speak to the caregivers and representatives has been obtained from the patient. Yes * Community resources currently utilized None * Additional services required to return to the preadmission environment? Yes * Can the patient safely return to the preadmission environment? Yes * Has this patient been hospitalized within the prior 30 days at any hospital? No Coverage Notice Reviewer: [id number] - Vitor Garcia Notice Issued Date-Time: 06/14/2018 13:20 Notice Type: IM Discharge Notice Notice Delivered To: Family Member Relationship to Patient: Spouse School Transportation Supervisor Name: MEL FINNEGAN Delivery Method: HAND - Hand Delivered Linda Days: Prior Verbal Notification: Recipient Understood Notice: Yes Recipient Signature: Yes Med Rec Note Co-signed by Attending: Coverage Notice Comment: Last DP export: 06/14/18 3:26 p Patient Name: TAWANNA FINNEGAN Page [phone] at 0956 All edits/amendments must be made on the electronic document DICTATION DATE: 06/18/1856 ORDER ANALYST: BABATUNDE 06/18/18955 RPT#: [id number] DC DATE:06/15/18 STATUS: DIS IN [facility] [address] [place] [address] END OF REPORT
== END 2018-06-15 14:45 | disposition home or self-care (01) | DRG 177 ==
LOC: D.ER 01:58 → D.MS 04:12 → D.M2 04:12
PROVIDERS: Family Medicine; Internal Medicine Cardiovascular Disease; Internal Medicine Nephrology; Internal Medicine Pulmonary Disease; ADMIT Emergency Medicine; ATTEND Emergency Medicine
DX: J10.08 Influenza due to other identified influenza virus with other specified pneumonia (principal); J96.21 Acute and chronic respiratory failure with hypoxia; J15.6 Pneumonia due to other Gram-negative bacteria; I50.33 Acute on chronic diastolic (congestive) heart failure; I13.0 Hypertensive heart and chronic kidney disease with heart failure and stage 1 through stage 4 chronic kidney disease, or unspecified chronic kidney disease; J98.11 Atelectasis; A18.0 Tuberculosis of bones and joints; I48.91 Unspecified atrial fibrillation; I25.10 Atherosclerotic heart disease of native coronary artery without angina pectoris; N18.9 Chronic kidney disease, unspecified; I27.20 Pulmonary hypertension, unspecified; R91.1 Solitary pulmonary nodule; E03.9 Hypothyroidism, unspecified; M10.9 Gout, unspecified; D64.9 Anemia, unspecified; E78.5 Hyperlipidemia, unspecified; J32.9 Chronic sinusitis, unspecified; J47.0 Bronchiectasis with acute lower respiratory infection; Z86.73 Personal history of transient ischemic attack (TIA), and cerebral infarction without residual deficits; Z87.891 Personal history of nicotine dependence